=== PATIENT | male | born 1960 | race Caucasian/White ===

== ENCOUNTER 2017-03-07 17:44 | Inpatient (IN) | payer OTHER, MEDICAID ==
[2017-03-07] MEDS ORDERED: NS 1000 ML 1,000 ML ONE (17:58)
[2017-03-07] MEDS ORDERED: NS 1000 ML 1,000 ML IV ONE ×2 (18:09→18:14)
--- NOTE | 2017-03-07 18:11 | DR.CP ---
HPI - Time Seen Time seen: 18:06 - Complaint Chief Complaint Doctor Comments: Patient complaining of xiphoid chest pain and right side pain for the past nine hours with onset of right side pain for past week. Patient states his chest pain started about 8am today and has been constant. He had an aspirin 81mg today and his gave him most of his medicines but did not give him his Lasix becausea his blood pressure was low. Patient states he sees a reel stripper in [place] but he does not have a local doctor. States he has a strong family history of heart disease with his parents and his siblings having heart disease. States the onset of his chest pain was at rest. Chief Complaint:: PT. C/O RIGHT SIDED PAIN FOR A WHILE. PT. SAYS THIS MORNING WHEN HE WOKE UP HE HAD PRESSURE/TIGHTNESS TO HIS CHEST WHICH HAS BEEN CONSTANT SINCE ONSET WELL SHORTNESS OF BREATH. - Reviewed Nurses Notes Review: Yes - Source History Provided: Patient, Family Member - Mode of Arrival Mode of Arrival: Wheelchair - Timing Onset of Chief Complaint: 03/07/17 Came on: Gradually Pain: Present Now - Duration Duration: Constant How lon Duration: Hours - Location Location of Chest Pain: Chest Chest Pain Radiation Location: Right Shoulder - Context Onset: At rest Cardiac Risk Factors: Family History, HTN PE Risk Factors: None History of: Similar pain in the past Prehospital Care: ASA - Quality Quality: Pressure like, Heavy, Crushing - Severity Severity: Moderate - Modifying Factors Worsens: Nothing Impoves: Nothing - Associated Signs and Symptoms Associated Signs and Symptoms: None PMH - PMH Past Medical History: Yes Past Medical History: CHF, Diabetes, GERD, Hypertension Past Medical History Comment: A-FIB, TIA Past Surgical History: Yes Surgical History: Ortho Surgery Past Surgical History Comment: RIGHT LEG - Family History History of Family Medical Conditions: Yes Family Medical History: Diabetes Mellitus, Coronary Artery Disease, Hypertension - Social History Does patient currently use any type of tobacco product: No Have you used tobacco products in the last 12 months: No Type of Tobacco Use: None Does any household member use tobacco: No Alcohol Use: None Do you use any recreational Drugs:: No Lives With: Spouse Lives Where: Home - infectious screening In the last 2 months have you had wt loss of >10#?: NO Have you had fever, night sweats or hemotysis?: No Have you traveled outside the country in the last 6 months?: No Isolation: Standard ROS - Review of Systems Constitutional: No Symptoms Reported. negative: See HPI, Chills, Diaphoresis, Fever, Malaise, Weakness, Irritable, Fatigue, Loss of Appetite, Other Eyes: No Symptoms Reported ENTM: No Symptoms Reported. negative: See HPI, Ear Pain, Ear Discharge, Pulling on Ears, Hearing Loss, Nose Pain, Nose Discharge, Epistaxis, Nose Congestion, Mouth Pain, Mouth Swelling, Loose Teeth, Drooling, Throat Pain, Throat Swelling, Ear Foreign Body Respiratoy: No Symptoms Reported. negative: See HPI, Productive Cough, Non- Productive Cough, Moist Cough, Dry Cough, Hacking Cough, Barking Cough, Brassy Cough, Orthopnea, Short of Breath, Stridor, Wheezing, Hemoptysis, Other Cardiovascular: No Symptoms Reported, Chest Pain. negative: See HPI, Edema, Palpitations, Syncope, Cyanosis, Skin Mottling, Other Gastrointestinal/Abdominal: No Symptoms Reported. negative: See HPI, Abdominal Pain, Constipation, Diarrhea, Nausea, Vomiting, Food Intolerance, Other Genitourinary: No Symptoms Reported. negative: See HPI, Discharge, Dysuria, Frequency, Hematuria, Pain, Bleeding, Other Neurological: No Symptoms Reported. negative: See HPI, Anxiety, Depressed, Emotional Problems, Headache, Numbness, Paresthesia, Pre-existing Deficit, Seizure, Tingling, Tremors, Weakness, Dizziness, Problems Walking, Speech Problem, Other Musculoskeletal: No Symptoms Reported, Right, Chest wall Integumentary: No Symptoms Reported Hematologic/Lymphatic: No Symptoms Reported. negative: See HPI, Anemia, Blood Clots, Easy Bleeding, Easy Bruising, Swollen Glands, Lymphadenopathy, Other Endocrine: No Symptoms Reported Psychiatric: No Symptoms Reported PE - Vitals Vitals: Temperature 97.8 F Pulse Rate [Apical] 55 Pulse Rate 66 Respiratory Rate 21 Blood Pressure [Right Arm] 101/58 Blood Pressure 87/58 O2 Sat by Pulse Oximetry 92 - General Limitations: No Limitations General Appearance: Alert, In Distress (moderate) - Head Head Exam: Normal Inspection, Atraumatic, Normocephalic - Eyes Eye exam: Normal Appearance, PERRL, EOMI. negative: Scleral Icterus, Conjunctival Injection, Nystagmus, Miosis, Mydrasis, Periorbital Swelling, Periorbital Tenderness, Other - ENT ENT Exam: Normal Exam, Normal Oropharynx, Normal External Ear Exam, Mucous Membranes Moist, TM's Normal Bilaterally - Chest Chest Inspection: Normal Inspection, Symmetric Chest Wall Rise - Respiratory Respiratory Exam: Normal Lung Sounds Bilat Respiratory Exam: Bilateral Clear to Auscultation - Cardiovascular Cardiovascular Exam: Regular Rate, Normal Rhythm, Normal Heart Sounds, Systolic Murmur Pulse: Normal Edema: Normal - Abdominal Exam Abdominal Exam: Normal Inspection, Normal Bowel Sounds, Soft. negative: Distention, Tenderness, Guarding, Rebound, Rigidity, Dimnished Bowel Sounds, Hyperactive Bowel Sounds, Hypoactive Bowel Sounds, Organomegaly, Trauma, Incision, Ascites, Mass, Bruit, Pulsatile Mass, Hernia, Other Abdominal Tenderness: negative: RUQ, RLQ, LUQ, LLQ, Epigastrium, Suprapubic, Diffuse, Mild, Moderate, Severe, Other - Extremities Extremities Exam: Normal Inspection, Full ROM, Normal Capillary Refill. negative: Tenderness, Edema, Joint Swelling, Calf Tenderness, Other - Back Back Exam: Normal Inspection, Full ROM. negative: Tenderness, (R) CVA Tenderness, (L) CVA Tenderness, Muscle Spasm, Paraspinal Tenderness, Vertebral Tenderness, Rashes, (R) Sciatic Notch Tenderness, (L) Sciatic Notch Tendern, (R ) Straight Leg Raise, (L) Straight Leg Raise, Other - Neurologic Neurological Exam: Alert, Oriented X3, CN II-XII Intact, Normal Gait, Reflexes Normal - Psychiatric Psychiatric Exam: Normal Affect, Normal Mood. negative: Depressed, Agitated, Anxious, Flat Affect, Manic, Homicidal Ideation, Suicidal Ideation, Other - Skin Skin Exam: Warm, Dry, Intact, Normal Color ROR - Labs Reviewed Laboratory Results Reviewed?: Yes (all labs and x-ray results reviewed and discussed with patient and spouse) Result Diagrams: 03/07/17 18:02 03/07/17 18:03 Laboratory: WBC 21.6 X10^3/uL (3.6-10.0) H* 03/07/17 18:02 RBC 5.08 X10^6/uL (4.7-6.0) 03/07/17 18:02 Hgb 14.2 g/dL (13.5-18.0) 03/07/17 18:02 Hct 41.6 % (42.0-54.0) L 03/07/17 18:02 MCV 81.8 fL (80.0-100.0) 03/07/17 18:02 MCH 28.0 pg (27.0-34.0) 03/07/17 18:02 MCHC 34.2 g/dL (33.0-35.0) 03/07/17 18:02 RDW 15.2 % (11.6-16.5) 03/07/17 18:02 Plt Count 140 X10^3/uL (150.0-450.0) L 03/07/17 18:02 Plt Count Comment Adequate (ADEQUATE) 03/07/17 18:02 MPV 9.9 fL (7.4-11.0) 03/07/17 18:02 Neut % 86.0 % (42.0-75.0) H 03/07/17 18:02 Lymph % 7.5 % (21.0-51.0) L 03/07/17 18:02 Lamar % 6.1 % (0.0-13.0) 03/07/17 18:02 Eos % 0.1 % (0.9-2.9) L 03/07/17 18:02 Baso % 0.3 % (0.2-1.0) 03/07/17 18:02 Neut # 18.6 x10^3/uL (2.2-4.8) H 03/07/17 18:02 Lymph # 1.6 X10^3/uL (1.3-2.9) 03/07/17 18:02 Lamar # 1.3 x10^3/uL (0.3-0.8) H 03/07/17 18:02 Eos # 0.0 x10^3/uL (0.0-0.2) 03/07/17 18:02 Baso # 0.1 X10^3/uL (0.0-0.1) 03/07/17 18:02 Absolute Nucleated RBC 0.1 /100WBC 03/07/17 18:02 Total Counted 100 03/07/17 18:02 Neutrophils % (Manual) 77 % (39-76) H 03/07/17 18:02 Band Neutrophils % 11 % (0-10) H 03/07/17 18:02 Lymphocytes % (Manual) 8 % (13-43) L 03/07/17 18:02 Monocytes % (Manual) 4 % (4-9) 03/07/17 18:02 Plt Morphology Comment Normal (NORMAL) 03/07/17 18:02 RBC Morphology Normal (NORMAL) 03/07/17 18:02 INR Target Range - 03/07/17 18:03 INR 2.01 (0.8-1.3) H 03/07/17 18:03 PTT 69.8 SECONDS (22.9-36.5) H 03/07/17 18:03 PTT Comment - 03/07/17 18:03 D-Dimer 194 ng/mL (0-400) 03/07/17 18:03 Sodium 142 mmol/L (136-145) 03/07/17 18:03 Corrected Sodium 143 mmol/L (136-145) 03/07/17 18:03 Potassium 4.5 mmol/L (3.5-5.1) 03/07/17 18:03 Chloride 106 mmol/L (98-107) 03/07/17 18:03 Carbon Dioxide 30.4 mmol/L (21-32) 03/07/17 18:03 BUN 19 mg/dL (7-18) H 03/07/17 18:03 Creatinine 1.74 mg/dL (0.70-1.30) H 03/07/17 18:03 Est GFR (MDRD) Af Amer 52 (>60) L 03/07/17 18:03 Est GFR (MDRD) Non-Af 43 (>60) L 03/07/17 18:03 Glucose 122 mg/dL (65-99) H 03/07/17 18:03 Calcium 8.5 mg/dL (8.5-10.1) 03/07/17 18:03 Corrected Calcium 9.2 mg/dL (8.5-10.1) 03/07/17 18:03 Magnesium 1.2 mg/dL (1.7-2.9) L 03/07/17 18:03 Total Bilirubin 1.20 mg/dL (0.2-1.0) H 03/07/17 18:03 AST 83 Units/L (15-37) H 03/07/17 18:03 ALT 107 Units/L (12-78) H 03/07/17 18:03 Alkaline Phosphatase 284 Units/L (46-116) H 03/07/17 18:03 Creatine Kinase 40 Units/L (39-308) 03/07/17 18:03 CK-MB (CK-2) < 1.0 ng/mL (0-4.0) 03/07/17 18:03 CK/CKMB % Calc 2.5 % (<4) 03/07/17 18:03 Troponin I < 0.02 ng/mL (0-1.5) 03/07/17 18:03 B-Natriuretic Peptide 141 pg/mL (0-79) H 03/07/17 18:03 Total Protein 7.1 g/dL (6.4-8.2) 03/07/17 18:03 Albumin 3.1 g/dL (3.4-5.0) L 03/07/17 18:03 Globulin 4.0 g/dL (2.5-4.5) 03/07/17 18:03 Albumin/Globulin Ratio 0.8 Ratio (1.1-2.1) L 03/07/17 18:03 Specimen Type Clean catch urine 03/07/17 18:50 Urine Color Yellow (YELLOW) 03/07/17 18:50 Urine Appearance Hazy (CLEAR) 03/07/17 18:50 Urine pH 6.0 (5.0 - 8.0) 03/07/17 18:50 Ur Specific Pioneer 1.005 (1.000-1.030) 03/07/17 18:50 Urine Protein 2+ (NEGATIVE) 03/07/17 18:50 Urine Glucose (UA) Negative (NEGATIVE) 03/07/17 18:50 Urine Ketones Negative (NEGATIVE) 03/07/17 18:50 Urine Occult Blood 2+ (NEGATIVE) 03/07/17 18:50 Urine Nitrite Negative (NEGATIVE) 03/07/17 18:50 Urine Bilirubin Negative (NEGATIVE) 03/07/17 18:50 Urine Urobilinogen Normal (NORMAL) 03/07/17 18:50 Ur Leukocyte Esterase 3+ (NEGATIVE) 03/07/17 18:50 Urine RBC 0 - 3 /HPF (NEGATIVE) 03/07/17 18:50 Urine WBC Tntc with clumps /HPF (NEGATIVE) 03/07/17 18:50 Ur Squamous Epith Cells Few /HPF (NEGATIVE) 03/07/17 18:50 Amorphous Sediment 2+ /HPF (NEGATIVE) 03/07/17 18:50 Urine Bacteria 2+ /HPF (NEGATIVE) 03/07/17 18:50 Urine Mucus Moderate /HPF (NEGATIVE) 03/07/17 18:50 Ur Culture Indicated? Yes/culture set up 03/07/17 18:50 Digoxin < 0.30 ng/mL (0.9-2) L 03/07/17 18:03 - XRAY XRAY Interpreted by: Radiologist (CXR: Findgs concerning for left lower pneumonia) - EKG Rate: 67 [place]: Normal Rhythm: NSR ST: Nonsp - Diagnosis Discharge Problem: Chest pain, rule out acute myocardial infarction, Urinary tract infection, Chronic kidney disease Left lower lobe pneumonia Qualifiers: Pneumonia type: due to unspecified organism Qualified Code(s): J18.1 - Lobar pneumonia, unspecified organism Congestive heart failure Qualifiers: Congestive heart failure type: unspecified congestive heart failure type - Discharge Plan Disposition: ADMITTED INPATIENT Condition: Stable Prescriptions: Levofloxacin in D5w [LEVAQUIN IV PREMIX 500 MG *] 500 mg IV Q24H #1 bag - Follow ups/Referrals Follow ups/Referrals: ORQUIDEA PEREZ [Primary Care Provider] - 3 days - Instructions
[2017-03-07 18:37] LABS: BASOPHILS # (AUTO) 0.1 X10^3/uL (0.0-0.1); BASOPHILS % (AUTO) 0.3 % (0.2-1.0); EOSINOPHILS % (AUTO) 0.1 % (0.9-2.9); HEMATOCRIT 41.6 % (42.0-54.0); HEMOGLOBIN 14.2 g/dL (13.5-18.0); LYMPHOCYTES # (AUTO) 1.6 X10^3/uL (1.3-2.9); LYMPHOCYTES % (AUTO) 7.5 % (21.0-51.0); MEAN CORPUSCULAR HGB CONC 34.2 g/dL (33.0-35.0); MEAN CORPUSCULAR VOLUME 81.8 fL (80.0-100.0); MEAN PLATELET VOLUME 9.9 fL (7.4-11.0); MONOCYTES # (AUTO) 1.3 x10^3/uL (0.3-0.8); MONOCYTES % (AUTO) 6.1 % (0.0-13.0); NEUTROPHILS # (AUTO) 18.6 x10^3/uL (2.2-4.8); PLATELET COUNT 140 X10^3/uL (150.0-450.0); RED BLOOD COUNT 5.08 X10^6/uL (4.7-6.0); RED CELL DISTRIBUTION WIDTH 15.2 % (11.6-16.5)
[2017-03-07 18:44] LABS: WHITE BLOOD COUNT 21.6 X10^3/uL (3.6-10.0)
[2017-03-07 18:45] LABS: BAND NEUTROPHILS % 11 % (0-10); PLATELET MORPHOLOGY COMMENT NORMAL (NORMAL)
[2017-03-07 18:49] LABS: BLOOD UREA NITROGEN 19 mg/dL (7-18); CALCIUM 8.5 mg/dL (8.5-10.1); CARBON DIOXIDE 30.4 mmol/L (21-32); CHLORIDE 106 mmol/L (98-107); COR NA(FOR HYPERGLY) 143 mmol/L (136-145); CREATININE 1.74 mg/dL (0.70-1.30); GLUCOSE 122 mg/dL (65-99); SODIUM 142 mmol/L (136-145); TROPONIN I < 0.02 ng/mL (0-1.5); eGFR BLACK RACES 52 (>60); eGFR NON BLACK RACES 43 (>60)
[2017-03-07 18:52] LABS: ALANINE AMINOTRANSFERASE 107 Units/L (12-78); ALBUMIN 3.1 g/dL (3.4-5.0); ALKALINE PHOSPHATASE 284 Units/L (46-116); ASPARTATE AMINO TRANSFERASE 83 Units/L (15-37); COR CA(FOR HYPOALB) 9.2 mg/dL (8.5-10.1); CREATINE KINASE 40 Units/L (39-308); CREATINE KINASE MB < 1.0 ng/mL (0-4.0); MAGNESIUM 1.2 mg/dL (1.7-2.9); TOTAL PROTEIN 7.1 g/dL (6.4-8.2)
[2017-03-07 18:58] LABS: CKMB % 2.5 % (<4)
[2017-03-07 19:00] LABS: D DIMER 194 ng/mL (0-400)
[2017-03-07 19:05] LABS: BILIRUBIN,URINE NEGATIVE (NEGATIVE); BLOOD/HEMOGLOBIN,URINE 2+ (NEGATIVE); GLUCOSE, URINE NEGATIVE (NEGATIVE); KETONES,URINE NEGATIVE (NEGATIVE); LEUKOCYTE ESTERASE ,URINE 3+ (NEGATIVE); NITRITES,URINE NEGATIVE (NEGATIVE); PROTEIN,URINE 2+ (NEGATIVE); UROBILINOGEN,URINE NORMAL (NORMAL)
[2017-03-07 19:16] LABS: B-TYPE NATRIURETIC PEPTIDE 141 pg/mL (0-79)
[2017-03-07 19:39] LABS: APPEARANCE,URINE HAZY (CLEAR); COLOR,URINE YELLOW (YELLOW); RBC,URINE 0 - 3 /HPF (NEGATIVE); SQUAMOUS EPITHELIAL CELL,UR FEW /HPF (NEGATIVE)
[2017-03-07 19:40] LABS: AMORPHOUS SEDIMENT,UR 2+ /HPF (NEGATIVE); BACTERIA,URINE 2+ /HPF (NEGATIVE); MUCUS,URINE MODERATE /HPF (NEGATIVE)
[2017-03-07] MEDS ORDERED: ROCEPHIN VIAL 1 GM 1 GM in NS 50 ML IV + SPIKE MINIBAG* 50 ML IV ONE (19:42)
[2017-03-07] MEDS ORDERED: ROCEPHIN 1 GM IV PREMIX * OUT OF STOCK 50 ML IV ONE (19:43)
--- NOTE | 2017-03-07 20:16 | RAD ---
HISTORY: 57-year-old male with chest pain. Study: Single frontal view of the chest. Comparison: None. Findings: Costophrenic angles are excluded. The trachea is midline. The cardiac silhouette is enlarged. Left basilar airspace opacities withou t pneumothorax or large effusion. The bony thorax is unremarkable. IMPRESSION: 1. Findings concerning for left lower pneumonia, correlate clinically. Reported By:
[2017-03-07] MEDS ORDERED: TUSSIONEX PENNKINETIC SUSP PO PRN (21:42)
[2017-03-07] MEDS ORDERED: NS 1/2 1000 ML IV 1,000 ML IV ONE (23:05)
[2017-03-07] MEDS: NS 1/2 1000 ML IV 1,000 ML IV SCH (23:12)
[2017-03-08 00:18] VITALS: BMI 30.2
[2017-03-08] MEDS: DUONEB 0.5 MG/3 MG NEB SCH ×6 (01:02→21:20)
[2017-03-08 03:48] LABS: BASOPHILS # (AUTO) 0.1 X10^3/uL (0.0-0.1); BASOPHILS % (AUTO) 0.4 % (0.2-1.0); EOSINOPHILS % (AUTO) 0.2 % (0.9-2.9); HEMATOCRIT 35.6 % (42.0-54.0); HEMOGLOBIN 12.1 g/dL (13.5-18.0); LYMPHOCYTES # (AUTO) 2.2 X10^3/uL (1.3-2.9); LYMPHOCYTES % (AUTO) 11.1 % (21.0-51.0); MEAN CORPUSCULAR HEMOGLOBIN 27.7 pg (27.0-34.0); MEAN CORPUSCULAR VOLUME 81.4 fL (80.0-100.0); MEAN PLATELET VOLUME 9.9 fL (7.4-11.0); MONOCYTES # (AUTO) 1.2 x10^3/uL (0.3-0.8); MONOCYTES % (AUTO) 6.1 % (0.0-13.0); NEUTROPHILS % (AUTO) 82.2 % (42.0-75.0); PLATELET COUNT 116 X10^3/uL (150.0-450.0); RED BLOOD COUNT 4.37 X10^6/uL (4.7-6.0); RED CELL DISTRIBUTION WIDTH 15.3 % (11.6-16.5); WHITE BLOOD COUNT 19.4 X10^3/uL (3.6-10.0)
[2017-03-08 04:01] LABS: ALANINE AMINOTRANSFERASE 81 Units/L (12-78); ALBUMIN 2.5 g/dL (3.4-5.0); ALKALINE PHOSPHATASE 209 Units/L (46-116); ASPARTATE AMINO TRANSFERASE 45 Units/L (15-37); BLOOD UREA NITROGEN 17 mg/dL (7-18); CALCIUM 7.9 mg/dL (8.5-10.1); CARBON DIOXIDE 30.3 mmol/L (21-32); CHLORIDE 107 mmol/L (98-107); CHOL/HDL RATIO 1.5 (0.0-5.0); CHOLESTEROL 73 mg/dL (0-200); COR CA(FOR HYPOALB) 9.1 mg/dL (8.5-10.1); COR NA(FOR HYPERGLY) 141 mmol/L (136-145); CREATINE KINASE 33 Units/L (39-308); CREATINE KINASE MB < 1.0 ng/mL (0-4.0); CREATININE 1.39 mg/dL (0.70-1.30); GLUCOSE 149 mg/dL (65-99); HDL CHOLESTEROL 49 mg/dL (40-60); SODIUM 140 mmol/L (136-145); TOTAL PROTEIN 6.1 g/dL (6.4-8.2); TRIGLYCERIDES 67 mg/dL (0-150); TROPONIN I < 0.02 ng/mL (0-1.5); eGFR BLACK RACES > 60 (>60); eGFR NON BLACK RACES 56 (>60)
[2017-03-08] MEDS ORDERED: ROCEPHIN VIAL 1 GM 1 GM in NS 50 ML IV + SPIKE MINIBAG* 50 ML IV SCH (09:00)
[2017-03-08] MEDS: ROBITUSSIN DM PO SCH ×4 (09:03→20:41)
[2017-03-08] MEDS ORDERED: PATIENT'S HOME MEDICATION (Albuterol Sulfate 1 PUFF) INH PRN (10:08)
[2017-03-08] MEDS ORDERED: PATIENT'S HOME MEDICATION (Budesonide-Formoterol 1 PUFF) INH SCH (10:15)
[2017-03-08] MEDS ORDERED: PATIENT'S HOME MEDICATION (Rivaroxaban [Xarelto] 1 TAB) PO SCH (10:15)
[2017-03-08] MEDS ORDERED: NS 1/2 1000 ML IV 1,000 ML IV ONE (10:20)
[2017-03-08] MEDS: GENTAMICIN TOPICAL CRM TOP SCH ×2 (10:25→20:51)
[2017-03-08] MEDS: NS 1/2 1000 ML IV 1,000 ML IV SCH (10:25)
[2017-03-08] MEDS: FORTAZ or TAZICEF INJ 1 GM in NS 50 ML IV + SPIKE MINIBAG* 50 ML IV SCH ×3 (10:25→22:23)
[2017-03-08] MEDS: LEVAQUIN PREMIX IV 750 MG 750 MG/150 ML BAG IV SCH (10:30)
[2017-03-08 10:57] LABS: CREATINE KINASE 28 Units/L (39-308); CREATINE KINASE MB < 1.0 ng/mL (0-4.0); TROPONIN I < 0.02 ng/mL (0-1.5)
[2017-03-08 11:11] LABS: CKMB % 3.6 % (<4)
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
[2017-03-08] MEDS ORDERED: VENTOLIN or PROAIR HFA IN PRN (12:32)
[2017-03-08] MEDS ORDERED: PROVENTIL NEB TX 0.083% 2.5MG/ 3ML NEB PRN (12:53)
[2017-03-08] MEDS: K-DUR TAB 20 MEQ PO SCH (13:28)
[2017-03-08] MEDS: DIOVAN TAB 160 MG PO SCH (13:28)
[2017-03-08] MEDS: ASPIRIN EC 81 MG PO SCH (13:28)
[2017-03-08] MEDS: COREG TAB 12.5 MG PO SCH ×2 (13:29→20:38)
[2017-03-08] MEDS: PriLOSEC PO SCH (13:29)
[2017-03-08] MEDS: NORVASC TAB 10 MG PO SCH (13:29)
[2017-03-08] MEDS: BUSPAR PO SCH ×2 (13:29→20:41)
[2017-03-08] MEDS: NEURONTIN CAP 100 MG PO SCH ×2 (13:29→20:40)
[2017-03-08] MEDS: MAGNESIUM SULFATE 1 GM/100 mL PREMIX 1 GM/100 ML BAG IV SCH ×2 (13:30→14:54)
[2017-03-08] MEDS: DESVENLAFAXINE SUCCINATE PO SCH (13:37)
[2017-03-08] MEDS: MORPHINE SULFATE INJ 2 MG IVP PRN ×2 (14:56→20:06)
--- NOTE | 2017-03-08 17:14 | PCM.PROG ---
Progress Note - Progress Note for Day of Date: 03/08/17 - Subjective Subjective: WAS ADMITTED LAST NIGHT FOR CHEST PAIN, LLL PNEUMONIA, AND SHORTNESS OF BREATH. HE WAS SITTING IN HIGH FOWLERS POSITION ON MORNING ROUNDS. AT BEDSIDE. HE IS WITH COMPLAINTS OF RIGHT SIDE PAIN AND COUGH THIS MORNING. LUNGS ARE NOTED WITH WHEEZING BILATERALLY. PATIENT ALSO COMPLAINS OF PRESSURE ULCER TO RIGHT HEEL. SPOUSE STATES THAT WOUND HAS BEEN THERE FOR A FEW WEEKS. WOUND IS APPROXIMATELY 2CM AND IS SCABBED OVER. VITALS THIS AM ARE 97.9, 69, 24, 96%, 131/49. CBC WNL EXCEPT WBC 19.4, HGB 12.1, HCT 35.6. CMP WNL EXCEPT CREATININE 1.39, GLUCOSE 149, CALCIUM 7.9, AST 45, ALT 81, ALKALINE PHOSPHATASE 209, CREATINE KINASE 33, TOTAL PROTEIN 6.1, ALBUMIN 2.5. WE WILL DISCONTINUE ROCEPHIN AND START PATIENT ON FORTAZ AND LEVAQUIN. WE WILL START GENTAMICIN FOR WOUND ON HEEL. WE WILL RECHECK LABS AND FOLLOW UP WITH PATIENT IN AM. - Past Medical Family Social History Past Med/Fam/Surg Hx: No changes since H&P Allergies: Allergies clindamycin Allergy (Verified 03/07/17 17:50) methylprednisolone [From Solu-Medrol] Allergy (Verified 03/07/17 17:50) pregabalin [From Lyrica] Allergy (Verified 03/07/17 17:50) - Review of Systems ROS: No change since H&P - Vital Signs and I&O's Vital Signs: Temperature 98 F Pulse Rate [Apical] 59 Pulse Rate 60 Respiratory Rate 15 Blood Pressure [Right Arm] 111/38 O2 Sat by Pulse Oximetry 95 Intake and Output: Intake & Output 03/06/17 03/07/17 03/08/17 03/09/17 11:59 11:59 11:59 11:59 Intake Total 850 925 Output Total 600 1610 Balance 250 -685 - Physical Exam Oriented: Normal Eyes: Normal Ear: Normal Nose: Normal Throat: Normal Cardiovascular: Normal. negative: Tachycardia, Bradycardia, Irregular, S3, S4, Systolic, Diastolic, Murmur, Edema, Other : Dysuria, Hematuria. negative: Normal, Frequency, Discharge, Testicular Pain , Bleeding, , Other Auscultation: Bowel Sounds: Normal. negative: Bruit, Absent, Increased, Decreased, High Pitched, Other Palpation: Normal Tenderness: Normal. negative: Diffuse, RUQ, RLQ, LUQ, LLQ, Epigastric, Periumbilical, Suprapubic, Mild, Moderate, Severe, Rebound, Guarding, Rigidity, Other Skin: Wound. negative: Decreased Turgur, Rash, Papular, Macular, Maculopapular , Vesicular, Pustular, Petechial, Red, Tender, Hot, Diaphoresis, Bruising, Ecchymosis, Other Musculoskeletal: Normal Psychiatric: Normal Mood Description: Calm Affect: Normal Speech Pattern: Clear - Laboratory and Diagnostics Result Diagrams: 03/08/17 03:20 03/08/17 03:20 Labs: 03/08/17 13:15 Sputum - Expectorated Sputum - Final Laboratory WBC 19.4 X10^3/uL (3.6-10.0) H 03/08/17 03:20 RBC 4.37 X10^6/uL (4.7-6.0) L 03/08/17 03:20 Hgb 12.1 g/dL (13.5-18.0) L 03/08/17 03:20 Hct 35.6 % (42.0-54.0) L 03/08/17 03:20 MCV 81.4 fL (80.0-100.0) 03/08/17 03:20 MCH 27.7 pg (27.0-34.0) 03/08/17 03:20 MCHC 34.0 g/dL (33.0-35.0) 03/08/17 03:20 RDW 15.3 % (11.6-16.5) 03/08/17 03:20 Plt Count 116 X10^3/uL (150.0-450.0) L 03/08/17 03:20 Plt Count Comment Adequate (ADEQUATE) 03/07/17 18:02 MPV 9.9 fL (7.4-11.0) 03/08/17 03:20 Neut % 82.2 % (42.0-75.0) H 03/08/17 03:20 Lymph % 11.1 % (21.0-51.0) L 03/08/17 03:20 [place] % 6.1 % (0.0-13.0) 03/08/17 03:20 Eos % 0.2 % (0.9-2.9) L 03/08/17 03:20 Baso % 0.4 % (0.2-1.0) 03/08/17 03:20 Neut # 16.0 x10^3/uL (2.2-4.8) H 03/08/17 03:20 Lymph # 2.2 X10^3/uL (1.3-2.9) 03/08/17 03:20 [place] # 1.2 x10^3/uL (0.3-0.8) H 03/08/17 03:20 Eos # 0.0 x10^3/uL (0.0-0.2) 03/08/17 03:20 Baso # 0.1 X10^3/uL (0.0-0.1) 03/08/17 03:20 Absolute Nucleated RBC 0.0 /100WBC 03/08/17 03:20 Total Counted 100 03/07/17 18:02 Neutrophils % (Manual) 77 % (39-76) H 03/07/17 18:02 Band Neutrophils % 11 % (0-10) H 03/07/17 18:02 Lymphocytes % (Manual) 8 % (13-43) L 03/07/17 18:02 Monocytes % (Manual) 4 % (4-9) 03/07/17 18:02 Plt Morphology Comment Normal (NORMAL) 03/07/17 18:02 RBC Morphology Normal (NORMAL) 03/07/17 18:02 INR Target Range - 03/07/17 18:03 INR 2.01 (0.8-1.3) H 03/07/17 18:03 PTT 69.8 SECONDS (22.9-36.5) H 03/07/17 18:03 PTT Comment - 03/07/17 18:03 D-Dimer 194 ng/mL (0-400) 03/07/17 18:03 Sodium 140 mmol/L (136-145) 03/08/17 03:20 Corrected Sodium 141 mmol/L (136-145) 03/08/17 03:20 Potassium 4.5 mmol/L (3.5-5.1) 03/08/17 03:20 Chloride 107 mmol/L (98-107) 03/08/17 03:20 Carbon Dioxide 30.3 mmol/L (21-32) 03/08/17 03:20 BUN 17 mg/dL (7-18) 03/08/17 03:20 Creatinine 1.39 mg/dL (0.70-1.30) H 03/08/17 03:20 Est GFR (MDRD) Af Amer > 60 (>60) 03/08/17 03:20 Est GFR (MDRD) Non-Af 56 (>60) L 03/08/17 03:20 Glucose 149 mg/dL (65-99) H 03/08/17 03:20 Lactic Acid 1.9 mmol/L (0.4-2.0) 03/08/17 03:20 Calcium 7.9 mg/dL (8.5-10.1) L 03/08/17 03:20 Corrected Calcium 9.1 mg/dL (8.5-10.1) 03/08/17 03:20 Magnesium 1.2 mg/dL (1.7-2.9) L 03/07/17 18:03 Total Bilirubin 0.70 mg/dL (0.2-1.0) 03/08/17 03:20 AST 45 Units/L (15-37) H 03/08/17 03:20 ALT 81 Units/L (12-78) H 03/08/17 03:20 Alkaline Phosphatase 209 Units/L (46-116) H 03/08/17 03:20 Creatine Kinase 28 Units/L (39-308) L 03/08/17 09:58 CK-MB (CK-2) < 1.0 ng/mL (0-4.0) 03/08/17 09:58 CK/CKMB % Calc 3.6 % (<4) 03/08/17 09:58 Troponin I < 0.02 ng/mL (0-1.5) 03/08/17 09:58 B-Natriuretic Peptide 141 pg/mL (0-79) H 03/07/17 18:03 Total Protein 6.1 g/dL (6.4-8.2) L 03/08/17 03:20 Albumin 2.5 g/dL (3.4-5.0) L 03/08/17 03:20 Globulin 3.6 g/dL (2.5-4.5) 03/08/17 03:20 Albumin/Globulin Ratio 0.7 Ratio (1.1-2.1) L 03/08/17 03:20 Triglycerides 67 mg/dL (0-150) 03/08/17 03:20 Cholesterol 73 mg/dL (0-200) 03/08/17 03:20 LDL Cholesterol, Calc 11 mg/dL (0-100) 03/08/17 03:20 HDL Cholesterol 49 mg/dL (40-60) 03/08/17 03:20 Cholesterol/HDL Ratio 1.5 (0.0-5.0) 03/08/17 03:20 Specimen Type Clean catch urine 03/07/17 18:50 Urine Color Yellow (YELLOW) 03/07/17 18:50 Urine Appearance Hazy (CLEAR) 03/07/17 18:50 Urine pH 6.0 (5.0 - 8.0) 03/07/17 18:50 Ur Specific [place] 1.005 (1.000-1.030) 03/07/17 18:50 Urine Protein 2+ (NEGATIVE) 03/07/17 18:50 Urine Glucose (UA) Negative (NEGATIVE) 03/07/17 18:50 Urine Ketones Negative (NEGATIVE) 03/07/17 18:50 Urine Occult Blood 2+ (NEGATIVE) 03/07/17 18:50 Urine Nitrite Negative (NEGATIVE) 03/07/17 18:50 Urine Bilirubin Negative (NEGATIVE) 03/07/17 18:50 Urine Urobilinogen Normal (NORMAL) 03/07/17 18:50 Ur Leukocyte Esterase 3+ (NEGATIVE) 03/07/17 18:50 Urine RBC 0 - 3 /HPF (NEGATIVE) 03/07/17 18:50 Urine WBC Tntc with clumps /HPF (NEGATIVE) 03/07/17 18:50 Ur Squamous Epith Cells Few /HPF (NEGATIVE) 03/07/17 18:50 Amorphous Sediment 2+ /HPF (NEGATIVE) 03/07/17 18:50 Urine Bacteria 2+ /HPF (NEGATIVE) 03/07/17 18:50 Urine Mucus Moderate /HPF (NEGATIVE) 03/07/17 18:50 Ur Culture Indicated? Yes/culture set up 03/07/17 18:50 Digoxin < 0.30 ng/mL (0.9-2) L 03/07/17 18:03 - Plan (1) Chest pain, rule out acute myocardial infarction Status: Acute Plan: CARDIAC PROFILE, EKG, CHEST XRAY, MONITOR LABS (2) Left lower lobe pneumonia Status: Acute Qualifiers: Pneumonia type: due to unspecified organism Aspiration pneumonia type: A Qualified Code(s): J18.1 - Lobar pneumonia, unspecified organism Plan: CHEST XRAY, LEVAQUIN, FORTAZ, MONITOR LABS (3) Urinary tract infection Status: Acute Qualifiers: Urinary tract infection type: acute cystitis Hematuria presence: with hematuria Indwelling urinary catheter type: I Encounter type: E Qualified Code(s): N30.01 - Acute cystitis with hematuria Plan: LEVAQUIN, FORTAZ, MONITOR LABS
[2017-03-08] MEDS: XARELTO PO SCH (20:41)
[2017-03-08] MEDS: ZOCOR TAB 20 MG PO SCH (20:50)
[2017-03-08] MEDS ORDERED: SYMBICORT INH 160/4.5 mcg IN SCH (21:00)
[2017-03-08] MEDS: PULMICORT NEB TX 0.5 MG NEB SCH (21:20)
[2017-03-08] MEDS: M.S. CONTIN 15 MG (EXTENDED RELEASE) PO PRN (22:27)
[2017-03-09] MEDS: DUONEB 0.5 MG/3 MG NEB SCH ×6 (00:42→20:13)
[2017-03-09] MEDS: FORTAZ or TAZICEF INJ 1 GM in NS 50 ML IV + SPIKE MINIBAG* 50 ML IV SCH ×3 (05:18→21:22)
[2017-03-09 06:18] LABS: BASOPHILS % (AUTO) 0.4 % (0.2-1.0); EOSINOPHILS # (AUTO) 0.1 x10^3/uL (0.0-0.2); EOSINOPHILS % (AUTO) 1.4 % (0.9-2.9); HEMATOCRIT 33.6 % (42.0-54.0); HEMOGLOBIN 11.7 g/dL (13.5-18.0); LYMPHOCYTES # (AUTO) 1.8 X10^3/uL (1.3-2.9); LYMPHOCYTES % (AUTO) 18.6 % (21.0-51.0); MEAN CORPUSCULAR HEMOGLOBIN 28.1 pg (27.0-34.0); MEAN CORPUSCULAR HGB CONC 34.8 g/dL (33.0-35.0); MEAN CORPUSCULAR VOLUME 80.8 fL (80.0-100.0); MEAN PLATELET VOLUME 10.2 fL (7.4-11.0); MONOCYTES # (AUTO) 0.5 x10^3/uL (0.3-0.8); MONOCYTES % (AUTO) 5.2 % (0.0-13.0); NEUTROPHILS # (AUTO) 7.2 x10^3/uL (2.2-4.8); NEUTROPHILS % (AUTO) 74.4 % (42.0-75.0); PLATELET COUNT 112 X10^3/uL (150.0-450.0); RED BLOOD COUNT 4.16 X10^6/uL (4.7-6.0); RED CELL DISTRIBUTION WIDTH 15.3 % (11.6-16.5); WHITE BLOOD COUNT 9.7 X10^3/uL (3.6-10.0)
[2017-03-09 06:25] LABS: ALANINE AMINOTRANSFERASE 56 Units/L (12-78); ALBUMIN 2.4 g/dL (3.4-5.0); ALKALINE PHOSPHATASE 169 Units/L (46-116); ASPARTATE AMINO TRANSFERASE 19 Units/L (15-37); BLOOD UREA NITROGEN 15 mg/dL (7-18); CALCIUM 7.9 mg/dL (8.5-10.1); CARBON DIOXIDE 28.6 mmol/L (21-32); CHLORIDE 105 mmol/L (98-107); COR CA(FOR HYPOALB) 9.2 mg/dL (8.5-10.1); CREATININE 1.21 mg/dL (0.70-1.30); GLUCOSE 101 mg/dL (65-99); SODIUM 140 mmol/L (136-145); TOTAL PROTEIN 6.4 g/dL (6.4-8.2); eGFR BLACK RACES > 60 (>60); eGFR NON BLACK RACES > 60 (>60)
[2017-03-09] MEDS: PULMICORT NEB TX 0.5 MG NEB SCH ×2 (08:48→20:13)
[2017-03-09] MEDS: GENTAMICIN TOPICAL CRM TOP SCH ×2 (09:00→21:30)
[2017-03-09] MEDS ORDERED: NS 1/2 1000 ML IV 1,000 ML IV ONE (09:02)
[2017-03-09] MEDS: DESVENLAFAXINE SUCCINATE PO SCH (09:52)
[2017-03-09] MEDS: K-DUR TAB 20 MEQ PO SCH (09:53)
[2017-03-09] MEDS: COREG TAB 12.5 MG PO SCH ×2 (09:53→21:22)
[2017-03-09] MEDS: NEURONTIN CAP 100 MG PO SCH ×2 (09:54→21:21)
[2017-03-09] MEDS: ROBITUSSIN DM PO SCH ×4 (09:54→21:22)
[2017-03-09] MEDS: ASPIRIN EC 81 MG PO SCH (09:54)
[2017-03-09] MEDS: NORVASC TAB 10 MG PO SCH (09:54)
[2017-03-09] MEDS: PriLOSEC PO SCH (09:54)
[2017-03-09] MEDS: BUSPAR PO SCH ×2 (09:54→21:22)
[2017-03-09] MEDS: DIOVAN TAB 160 MG PO SCH (09:54)
[2017-03-09] MEDS: LEVAQUIN PREMIX IV 750 MG 750 MG/150 ML BAG IV SCH (09:55)
[2017-03-09] MEDS: NS 1/2 1000 ML IV 1,000 ML IV SCH ×2 (09:59→16:58)
[2017-03-09] MEDS: ALBUMIN HUMAN 25%- 100ML 100 ML IV SCH (13:25)
--- NOTE | 2017-03-09 15:25 | PCM.PROG ---
Progress Note - Progress Note for Day of Date: 03/09/17 - Subjective Subjective: IS AWAKE IN BED ON MORNING ROUNDS. AT BEDSIDE. HE IS WITH COMPLAINTS OF SHORTNESS OF BREATH AND COUGH THIS MORNING. LUNGS ARE NOTED WITH WHEEZING BILATERALLY. VITALS THIS AM ARE 98.3,58,18,94,117/59. CBC WNL EXCEPT WBC IMPROVED FROM 19.4 TO 9.7, HGB 11.7, HCT 33.6. CMP WNL EXCEPT CALCIUM 7.9, ALKALINE PHOSPHATASE 169, ALBUMIN 2.4. WE WILL CONTINUE PATIENT ON FORTAZ AND LEVAQUIN. WE WILL CHECK AN ECHO AND START PATIENT ON CPAP AT HS. WE WILL RECHECK LABS AND XRAY AND FOLLOW UP WITH PATIENT IN AM. - Past Medical Family Social History Past Med/Fam/Surg Hx: No changes since H&P Allergies: Allergies clindamycin Allergy (Verified 03/07/17 17:50) methylprednisolone [From Solu-Medrol] Allergy (Verified 03/07/17 17:50) pregabalin [From Lyrica] Allergy (Verified 03/07/17 17:50) - Review of Systems ROS: No change since H&P - Vital Signs and I&O's Vital Signs: Temperature 98.3 F Pulse Rate [Apical] 56 Pulse Rate 69 Respiratory Rate 22 Blood Pressure [Right Arm] 114/63 O2 Sat by Pulse Oximetry 92 Intake and Output: Intake & Output 03/07/17 03/08/17 03/09/17 03/10/17 11:59 11:59 11:59 11:59 Intake Total 850 2629 Output Total 600 3710 Balance 250 -1081 - Physical Exam Oriented: Normal Eyes: Normal Ear: Normal Nose: Normal Throat: Normal Respiratory: Right, Left, Wheezes Cardiovascular: Normal. negative: Tachycardia, Bradycardia, Irregular, S3, S4, Systolic, Diastolic, Murmur, Edema, Other : Dysuria, Hematuria. negative: Normal, Frequency, Discharge, Testicular Pain , Bleeding, , Other Auscultation: Bowel Sounds: Normal. negative: Bruit, Absent, Increased, Decreased, High Pitched, Other Palpation: Normal Tenderness: Normal. negative: Diffuse, RUQ, RLQ, LUQ, LLQ, Epigastric, Periumbilical, Suprapubic, Mild, Moderate, Severe, Rebound, Guarding, Rigidity, Other Skin: Wound. negative: Decreased Turgur, Rash, Papular, Macular, Maculopapular , Vesicular, Pustular, Petechial, Red, Tender, Hot, Diaphoresis, Bruising, Ecchymosis, Other Musculoskeletal: Normal Psychiatric: Normal Mood Description: Calm Affect: Normal Speech Pattern: Clear, Appropriate - Laboratory and Diagnostics Result Diagrams: 03/09/17 05:10 03/09/17 05:10 Labs: 03/08/17 13:15 Sputum - Expectorated Sputum Sputum Culture - Preliminary 03/08/17 13:15 Sputum - Expectorated Sputum - Final Laboratory WBC 9.7 X10^3/uL (3.6-10.0) 03/09/17 05:10 RBC 4.16 X10^6/uL (4.7-6.0) L 03/09/17 05:10 Hgb 11.7 g/dL (13.5-18.0) L 03/09/17 05:10 Hct 33.6 % (42.0-54.0) L 03/09/17 05:10 MCV 80.8 fL (80.0-100.0) 03/09/17 05:10 MCH 28.1 pg (27.0-34.0) 03/09/17 05:10 MCHC 34.8 g/dL (33.0-35.0) 03/09/17 05:10 RDW 15.3 % (11.6-16.5) 03/09/17 05:10 Plt Count 112 X10^3/uL (150.0-450.0) L 03/09/17 05:10 Plt Count Comment Adequate (ADEQUATE) 03/07/17 18:02 MPV 10.2 fL (7.4-11.0) 03/09/17 05:10 Neut % 74.4 % (42.0-75.0) 03/09/17 05:10 Lymph % 18.6 % (21.0-51.0) L 03/09/17 05:10 [place] % 5.2 % (0.0-13.0) 03/09/17 05:10 Eos % 1.4 % (0.9-2.9) 03/09/17 05:10 Baso % 0.4 % (0.2-1.0) 03/09/17 05:10 Neut # 7.2 x10^3/uL (2.2-4.8) H 03/09/17 05:10 Lymph # 1.8 X10^3/uL (1.3-2.9) 03/09/17 05:10 [place] # 0.5 x10^3/uL (0.3-0.8) 03/09/17 05:10 Eos # 0.1 x10^3/uL (0.0-0.2) 03/09/17 05:10 Baso # 0.0 X10^3/uL (0.0-0.1) 03/09/17 05:10 Absolute Nucleated RBC 0.1 /100WBC 03/09/17 05:10 Total Counted 100 03/07/17 18:02 Neutrophils % (Manual) 77 % (39-76) H 03/07/17 18:02 Band Neutrophils % 11 % (0-10) H 03/07/17 18:02 Lymphocytes % (Manual) 8 % (13-43) L 03/07/17 18:02 Monocytes % (Manual) 4 % (4-9) 03/07/17 18:02 Plt Morphology Comment Normal (NORMAL) 03/07/17 18:02 RBC Morphology Normal (NORMAL) 03/07/17 18:02 INR Target Range - 03/09/17 05:10 INR 2.20 (0.8-1.3) H 03/09/17 05:10 PTT 57.7 SECONDS (22.9-36.5) H 03/09/17 05:10 PTT Comment - 03/09/17 05:10 D-Dimer 194 ng/mL (0-400) 03/07/17 18:03 Sodium 140 mmol/L (136-145) 03/09/17 05:10 Corrected Sodium TNP 03/09/17 05:10 Potassium 4.0 mmol/L (3.5-5.1) 03/09/17 05:10 Chloride 105 mmol/L (98-107) 03/09/17 05:10 Carbon Dioxide 28.6 mmol/L (21-32) 03/09/17 05:10 BUN 15 mg/dL (7-18) 03/09/17 05:10 Creatinine 1.21 mg/dL (0.70-1.30) 03/09/17 05:10 Est GFR (MDRD) Af Amer > 60 (>60) 03/09/17 05:10 Est GFR (MDRD) Non-Af > 60 (>60) 03/09/17 05:10 Glucose 101 mg/dL (65-99) H 03/09/17 05:10 Lactic Acid 1.9 mmol/L (0.4-2.0) 03/08/17 03:20 Calcium 7.9 mg/dL (8.5-10.1) L 03/09/17 05:10 Corrected Calcium 9.2 mg/dL (8.5-10.1) 03/09/17 05:10 Magnesium 1.8 mg/dL (1.7-2.9) 03/08/17 18:12 Total Bilirubin 0.50 mg/dL (0.2-1.0) 03/09/17 05:10 AST 19 Units/L (15-37) 03/09/17 05:10 ALT 56 Units/L (12-78) 03/09/17 05:10 Alkaline Phosphatase 169 Units/L (46-116) H 03/09/17 05:10 Creatine Kinase 28 Units/L (39-308) L 03/08/17 09:58 CK-MB (CK-2) < 1.0 ng/mL (0-4.0) 03/08/17 09:58 CK/CKMB % Calc 3.6 % (<4) 03/08/17 09:58 Troponin I < 0.02 ng/mL (0-1.5) 03/08/17 09:58 B-Natriuretic Peptide 141 pg/mL (0-79) H 03/07/17 18:03 Total Protein 6.4 g/dL (6.4-8.2) 03/09/17 05:10 Albumin 2.4 g/dL (3.4-5.0) L 03/09/17 05:10 Globulin 4.0 g/dL (2.5-4.5) 03/09/17 05:10 Albumin/Globulin Ratio 0.6 Ratio (1.1-2.1) L 03/09/17 05:10 Triglycerides 67 mg/dL (0-150) 03/08/17 03:20 Cholesterol 73 mg/dL (0-200) 03/08/17 03:20 LDL Cholesterol, Calc 11 mg/dL (0-100) 03/08/17 03:20 HDL Cholesterol 49 mg/dL (40-60) 03/08/17 03:20 Cholesterol/HDL Ratio 1.5 (0.0-5.0) 03/08/17 03:20 Specimen Type Clean catch urine 03/07/17 18:50 Urine Color Yellow (YELLOW) 03/07/17 18:50 Urine Appearance Hazy (CLEAR) 03/07/17 18:50 Urine pH 6.0 (5.0 - 8.0) 03/07/17 18:50 Ur Specific [place] 1.005 (1.000-1.030) 03/07/17 18:50 Urine Protein 2+ (NEGATIVE) 03/07/17 18:50 Urine Glucose (UA) Negative (NEGATIVE) 03/07/17 18:50 Urine Ketones Negative (NEGATIVE) 03/07/17 18:50 Urine Occult Blood 2+ (NEGATIVE) 03/07/17 18:50 Urine Nitrite Negative (NEGATIVE) 03/07/17 18:50 Urine Bilirubin Negative (NEGATIVE) 03/07/17 18:50 Urine Urobilinogen Normal (NORMAL) 03/07/17 18:50 Ur Leukocyte Esterase 3+ (NEGATIVE) 03/07/17 18:50 Urine RBC 0 - 3 /HPF (NEGATIVE) 03/07/17 18:50 Urine WBC Tntc with clumps /HPF (NEGATIVE) 03/07/17 18:50 Ur Squamous Epith Cells Few /HPF (NEGATIVE) 03/07/17 18:50 Amorphous Sediment 2+ /HPF (NEGATIVE) 03/07/17 18:50 Urine Bacteria 2+ /HPF (NEGATIVE) 03/07/17 18:50 Urine Mucus Moderate /HPF (NEGATIVE) 03/07/17 18:50 Ur Culture Indicated? Yes/culture set up 03/07/17 18:50 Digoxin < 0.30 ng/mL (0.9-2) L 03/07/17 18:03 - Plan (1) Chest pain, rule out acute myocardial infarction Status: Acute Plan: CARDIAC PROFILE, EKG, CHEST XRAY, MONITOR LABS (2) Left lower lobe pneumonia Status: Acute Qualifiers: Pneumonia type: due to unspecified organism Aspiration pneumonia type: A Qualified Code(s): J18.1 - Lobar pneumonia, unspecified organism Plan: CHEST XRAY, LEVAQUIN, FORTAZ, MONITOR LABS (3) Urinary tract infection Status: Acute Qualifiers: Urinary tract infection type: acute cystitis Hematuria presence: with hematuria Indwelling urinary catheter type: I Encounter type: E Qualified Code(s): N30.01 - Acute cystitis with hematuria Plan: LEVAQUIN, FORTAZ, MONITOR LABS
[2017-03-09] MEDS: XARELTO PO SCH (21:22)
[2017-03-09] MEDS: ZOCOR TAB 20 MG PO SCH (21:22)
[2017-03-09] MEDS: M.S. CONTIN 15 MG (EXTENDED RELEASE) PO PRN (22:17)
[2017-03-10] MEDS: DUONEB 0.5 MG/3 MG NEB SCH ×6 (00:47→21:04)
[2017-03-10] MEDS ORDERED: NS 1/2 1000 ML IV 1,000 ML IV ONE ×2 (01:56→17:31)
[2017-03-10] MEDS: NS 1/2 1000 ML IV 1,000 ML IV SCH ×4 (01:57→22:39)
[2017-03-10] MEDS: FORTAZ or TAZICEF INJ 1 GM in NS 50 ML IV + SPIKE MINIBAG* 50 ML IV SCH ×3 (05:29→21:45)
[2017-03-10 05:34] LABS: ALANINE AMINOTRANSFERASE 43 Units/L (12-78); ALBUMIN 2.6 g/dL (3.4-5.0); ALKALINE PHOSPHATASE 147 Units/L (46-116); ASPARTATE AMINO TRANSFERASE 14 Units/L (15-37); BLOOD UREA NITROGEN 13 mg/dL (7-18); CALCIUM 8.4 mg/dL (8.5-10.1); CARBON DIOXIDE 27.6 mmol/L (21-32); CHLORIDE 107 mmol/L (98-107); COR CA(FOR HYPOALB) 9.5 mg/dL (8.5-10.1); COR NA(FOR HYPERGLY) 143 mmol/L (136-145); CREATININE 1.07 mg/dL (0.70-1.30); GLUCOSE 130 mg/dL (65-99); SODIUM 142 mmol/L (136-145); TOTAL PROTEIN 6.8 g/dL (6.4-8.2); eGFR BLACK RACES > 60 (>60); eGFR NON BLACK RACES > 60 (>60)
[2017-03-10 05:40] LABS: BASOPHILS # (AUTO) 0.1 X10^3/uL (0.0-0.1); BASOPHILS % (AUTO) 1.2 % (0.2-1.0); EOSINOPHILS # (AUTO) 0.3 x10^3/uL (0.0-0.2); EOSINOPHILS % (AUTO) 3.7 % (0.9-2.9); HEMOGLOBIN 12.1 g/dL (13.5-18.0); LYMPHOCYTES # (AUTO) 1.8 X10^3/uL (1.3-2.9); LYMPHOCYTES % (AUTO) 25.7 % (21.0-51.0); MEAN CORPUSCULAR HEMOGLOBIN 27.8 pg (27.0-34.0); MEAN CORPUSCULAR HGB CONC 34.5 g/dL (33.0-35.0); MEAN CORPUSCULAR VOLUME 80.6 fL (80.0-100.0); MEAN PLATELET VOLUME 9.8 fL (7.4-11.0); MONOCYTES # (AUTO) 0.4 x10^3/uL (0.3-0.8); MONOCYTES % (AUTO) 5.2 % (0.0-13.0); NEUTROPHILS # (AUTO) 4.5 x10^3/uL (2.2-4.8); NEUTROPHILS % (AUTO) 64.2 % (42.0-75.0); PLATELET COUNT 127 X10^3/uL (150.0-450.0); RED BLOOD COUNT 4.34 X10^6/uL (4.7-6.0); RED CELL DISTRIBUTION WIDTH 15.1 % (11.6-16.5); WHITE BLOOD COUNT 7.1 X10^3/uL (3.6-10.0)
--- NOTE | 2017-03-10 06:14 | RAD ---
HISTORY: Shortness of breath, follow up pneumonia Study: Chest one view Comparison: March 07, 2017 Findings: The heart is enlarged. No congestive heart failure is noted. The right lung and left upper lung fiel ds are clear. There has been some improvement in the left lower lobe pneumonia being followed. Resid ual infiltrate remains and continued follow up is recommended. The remainder of the lung danielle are clear. The bony thorax is unremarkable. IMPRESSION: Improving left lower lobe pneumonia Cardiomegaly without congestive heart failure Reported By:
[2017-03-10] MEDS: PULMICORT NEB TX 0.5 MG NEB SCH ×2 (08:25→21:04)
[2017-03-10] MEDS: ROBITUSSIN DM PO SCH ×4 (08:49→21:51)
[2017-03-10] MEDS: LEVAQUIN PREMIX IV 750 MG 750 MG/150 ML BAG IV SCH (08:49)
[2017-03-10] MEDS: NORVASC TAB 10 MG PO SCH (08:50)
[2017-03-10] MEDS: COREG TAB 12.5 MG PO SCH ×2 (08:50→21:47)
[2017-03-10] MEDS: K-DUR TAB 20 MEQ PO SCH (08:50)
[2017-03-10] MEDS: PriLOSEC PO SCH (08:50)
[2017-03-10] MEDS: BUSPAR PO SCH ×2 (08:50→21:46)
[2017-03-10] MEDS: DIOVAN TAB 160 MG PO SCH (08:50)
[2017-03-10] MEDS: NEURONTIN CAP 100 MG PO SCH ×2 (08:50→21:46)
[2017-03-10] MEDS: ASPIRIN EC 81 MG PO SCH (08:50)
[2017-03-10] MEDS: ALBUMIN HUMAN 25%- 100ML 100 ML IV SCH (08:50)
[2017-03-10] MEDS: DESVENLAFAXINE SUCCINATE PO SCH (08:52)
[2017-03-10] MEDS: GENTAMICIN TOPICAL CRM TOP SCH ×2 (09:56→21:48)
--- NOTE | 2017-03-10 10:59 | PCM.PROG ---
Progress Note - Progress Note for Day of Date: 03/10/17 - Subjective Subjective: IS AWAKE IN BED ON MORNING ROUNDS. AT BEDSIDE. HE IS WITH COMPLAINTS OF PRODUCTIVE COUGH THIS MORNING. LUNGS ARE NOTED WITH WHEEZING BILATERALLY. VITALS THIS AM ARE 97.7,61,25,91,117/69. CBC WNL EXCEPT WBC IMPROVED FROM 9.7 TO 7.1, HGB 12.1, HCT 35, PLT COUNT 127. CMP WNL EXCEPT CALCIUM 8.4, ALKALINE PHOSPHATASE 147, ALBUMIN 2.6. INR 1.43, PTT 60.1. CHEST XRAY REPORTED IMPROVING LLL PNEUMONIA. ECHO REPORTED EF 53%. WE WILL RECHECK LABS AND XRAY AND FOLLOW UP WITH PATIENT IN AM. - Past Medical Family Social History Past Med/Fam/Surg Hx: No changes since H&P Allergies: Allergies clindamycin Allergy (Verified 03/07/17 17:50) methylprednisolone [From Solu-Medrol] Allergy (Verified 03/07/17 17:50) pregabalin [From Lyrica] Allergy (Verified 03/07/17 17:50) - Review of Systems ROS: No change since H&P - Vital Signs and I&O's Vital Signs: Temperature 97.7 F Pulse Rate [Apical] 61 Pulse Rate 60 Respiratory Rate 25 Blood Pressure [Right Arm] 117/69 O2 Sat by Pulse Oximetry 91 Intake and Output: Intake & Output 03/07/17 03/08/17 03/09/17 03/10/17 11:59 11:59 11:59 11:59 Intake Total 850 2629 2305 Output Total 600 3710 1460 Balance 250 -1081 845 - Physical Exam Oriented: Normal Eyes: Normal Ear: Normal Nose: Normal Throat: Normal Respiratory: Right, Left, Wheezes Cardiovascular: Normal. negative: Tachycardia, Bradycardia, Irregular, S3, S4, Systolic, Diastolic, Murmur, Edema, Other : Dysuria, Hematuria. negative: Normal, Frequency, Discharge, Testicular Pain , Bleeding, , Other Auscultation: Bowel Sounds: Normal. negative: Bruit, Absent, Increased, Decreased, High Pitched, Other Tenderness: Normal. negative: Diffuse, RUQ, RLQ, LUQ, LLQ, Epigastric, Periumbilical, Suprapubic, Mild, Moderate, Severe, Rebound, Guarding, Rigidity, Other Skin: Wound. negative: Decreased Turgur, Rash, Papular, Macular, Maculopapular , Vesicular, Pustular, Petechial, Red, Tender, Hot, Diaphoresis, Bruising, Ecchymosis, Other Musculoskeletal: Normal Psychiatric: Normal Mood Description: Calm Affect: Normal Speech Pattern: Clear, Appropriate - Laboratory and Diagnostics Result Diagrams: 03/10/17 04:55 03/10/17 04:55 Labs: 03/08/17 13:15 Sputum - Expectorated Sputum Sputum Culture - Final 03/08/17 13:15 Sputum - Expectorated Sputum - Final Laboratory WBC 7.1 X10^3/uL (3.6-10.0) 03/10/17 04:55 RBC 4.34 X10^6/uL (4.7-6.0) L 03/10/17 04:55 Hgb 12.1 g/dL (13.5-18.0) L 03/10/17 04:55 Hct 35.0 % (42.0-54.0) L 03/10/17 04:55 MCV 80.6 fL (80.0-100.0) 03/10/17 04:55 MCH 27.8 pg (27.0-34.0) 03/10/17 04:55 MCHC 34.5 g/dL (33.0-35.0) 03/10/17 04:55 RDW 15.1 % (11.6-16.5) 03/10/17 04:55 Plt Count 127 X10^3/uL (150.0-450.0) L 03/10/17 04:55 Plt Count Comment Adequate (ADEQUATE) 03/07/17 18:02 MPV 9.8 fL (7.4-11.0) 03/10/17 04:55 Neut % 64.2 % (42.0-75.0) 03/10/17 04:55 Lymph % 25.7 % (21.0-51.0) 03/10/17 04:55 [place] % 5.2 % (0.0-13.0) 03/10/17 04:55 Eos % 3.7 % (0.9-2.9) H 03/10/17 04:55 Baso % 1.2 % (0.2-1.0) H 03/10/17 04:55 Neut # 4.5 x10^3/uL (2.2-4.8) 03/10/17 04:55 Lymph # 1.8 X10^3/uL (1.3-2.9) 03/10/17 04:55 [place] # 0.4 x10^3/uL (0.3-0.8) 03/10/17 04:55 Eos # 0.3 x10^3/uL (0.0-0.2) H 03/10/17 04:55 Baso # 0.1 X10^3/uL (0.0-0.1) 03/10/17 04:55 Absolute Nucleated RBC 0.0 /100WBC 03/10/17 04:55 Total Counted 100 03/07/17 18:02 Neutrophils % (Manual) 77 % (39-76) H 03/07/17 18:02 Band Neutrophils % 11 % (0-10) H 03/07/17 18:02 Lymphocytes % (Manual) 8 % (13-43) L 03/07/17 18:02 Monocytes % (Manual) 4 % (4-9) 03/07/17 18:02 Plt Morphology Comment Normal (NORMAL) 03/07/17 18:02 RBC Morphology Normal (NORMAL) 03/07/17 18:02 INR Target Range - 03/10/17 04:55 INR 1.43 (0.8-1.3) H 03/10/17 04:55 PTT 60.1 SECONDS (22.9-36.5) H 03/10/17 04:55 PTT Comment - 03/10/17 04:55 D-Dimer 194 ng/mL (0-400) 03/07/17 18:03 Sodium 142 mmol/L (136-145) 03/10/17 04:55 Corrected Sodium 143 mmol/L (136-145) 03/10/17 04:55 Potassium 3.8 mmol/L (3.5-5.1) 03/10/17 04:55 Chloride 107 mmol/L (98-107) 03/10/17 04:55 Carbon Dioxide 27.6 mmol/L (21-32) 03/10/17 04:55 BUN 13 mg/dL (7-18) 03/10/17 04:55 Creatinine 1.07 mg/dL (0.70-1.30) 03/10/17 04:55 Est GFR (MDRD) Af Amer > 60 (>60) 03/10/17 04:55 Est GFR (MDRD) Non-Af > 60 (>60) 03/10/17 04:55 Glucose 130 mg/dL (65-99) H 03/10/17 04:55 Lactic Acid 1.9 mmol/L (0.4-2.0) 03/08/17 03:20 Calcium 8.4 mg/dL (8.5-10.1) L 03/10/17 04:55 Corrected Calcium 9.5 mg/dL (8.5-10.1) 03/10/17 04:55 Magnesium 1.8 mg/dL (1.7-2.9) 03/08/17 18:12 Total Bilirubin 0.50 mg/dL (0.2-1.0) 03/10/17 04:55 AST 14 Units/L (15-37) L 03/10/17 04:55 ALT 43 Units/L (12-78) 03/10/17 04:55 Alkaline Phosphatase 147 Units/L (46-116) H 03/10/17 04:55 Creatine Kinase 28 Units/L (39-308) L 03/08/17 09:58 CK-MB (CK-2) < 1.0 ng/mL (0-4.0) 03/08/17 09:58 CK/CKMB % Calc 3.6 % (<4) 03/08/17 09:58 Troponin I < 0.02 ng/mL (0-1.5) 03/08/17 09:58 B-Natriuretic Peptide 141 pg/mL (0-79) H 03/07/17 18:03 Total Protein 6.8 g/dL (6.4-8.2) 03/10/17 04:55 Albumin 2.6 g/dL (3.4-5.0) L 03/10/17 04:55 Globulin 4.2 g/dL (2.5-4.5) 03/10/17 04:55 Albumin/Globulin Ratio 0.6 Ratio (1.1-2.1) L 03/10/17 04:55 Triglycerides 67 mg/dL (0-150) 03/08/17 03:20 Cholesterol 73 mg/dL (0-200) 03/08/17 03:20 LDL Cholesterol, Calc 11 mg/dL (0-100) 03/08/17 03:20 HDL Cholesterol 49 mg/dL (40-60) 03/08/17 03:20 Cholesterol/HDL Ratio 1.5 (0.0-5.0) 03/08/17 03:20 Specimen Type Clean catch urine 03/07/17 18:50 Urine Color Yellow (YELLOW) 03/07/17 18:50 Urine Appearance Hazy (CLEAR) 03/07/17 18:50 Urine pH 6.0 (5.0 - 8.0) 03/07/17 18:50 Ur Specific [place] 1.005 (1.000-1.030) 03/07/17 18:50 Urine Protein 2+ (NEGATIVE) 03/07/17 18:50 Urine Glucose (UA) Negative (NEGATIVE) 03/07/17 18:50 Urine Ketones Negative (NEGATIVE) 03/07/17 18:50 Urine Occult Blood 2+ (NEGATIVE) 03/07/17 18:50 Urine Nitrite Negative (NEGATIVE) 03/07/17 18:50 Urine Bilirubin Negative (NEGATIVE) 03/07/17 18:50 Urine Urobilinogen Normal (NORMAL) 03/07/17 18:50 Ur Leukocyte Esterase 3+ (NEGATIVE) 03/07/17 18:50 Urine RBC 0 - 3 /HPF (NEGATIVE) 03/07/17 18:50 Urine WBC Tntc with clumps /HPF (NEGATIVE) 03/07/17 18:50 Ur Squamous Epith Cells Few /HPF (NEGATIVE) 03/07/17 18:50 Amorphous Sediment 2+ /HPF (NEGATIVE) 03/07/17 18:50 Urine Bacteria 2+ /HPF (NEGATIVE) 03/07/17 18:50 Urine Mucus Moderate /HPF (NEGATIVE) 03/07/17 18:50 Ur Culture Indicated? Yes/culture set up 03/07/17 18:50 Digoxin < 0.30 ng/mL (0.9-2) L 03/07/17 18:03 - Plan (1) Chest pain, rule out acute myocardial infarction Status: Acute Plan: CHEST XRAY, RECHECK LABS, CONTINUE TO MONITOR (2) Left lower lobe pneumonia Status: Acute Qualifiers: Pneumonia type: due to unspecified organism Aspiration pneumonia type: A Qualified Code(s): J18.1 - Lobar pneumonia, unspecified organism Plan: CHEST XRAY, LEVAQUIN, FORTAZ, MONITOR LABS (3) Urinary tract infection Status: Acute Qualifiers: Urinary tract infection type: acute cystitis Hematuria presence: with hematuria Indwelling urinary catheter type: I Encounter type: E Qualified Code(s): N30.01 - Acute cystitis with hematuria Plan: LEVAQUIN, FORTAZ, MONITOR LABS (4) Hyperalbuminemia Status: Acute Plan: CONTINUE ALBUMIN, CONTINUE TO MONITOR (5) Hypertension Status: Chronic Qualifiers: Hypertension type: essential hypertension Qualified Code(s): I10 - Essential (primary) hypertension Plan: CONTINUE NORVASC, CONTINUE COREG, CONTINUE TO MONITOR (6) Atrial fibrillation Status: Chronic Qualifiers: Atrial fibrillation type: A Plan: CONTINUE XARELTO, CONTINUE TO MONITOR (7) Congestive heart failure Status: Chronic Qualifiers: Congestive heart failure type: unspecified congestive heart failure type Congestive heart failure chronicity: C (8) GERD (gastroesophageal reflux disease) Status: Acute Qualifiers: Esophagitis presence: E Plan: CONTINUE PRILOSEC, CONTINUE TO MONITOR
[2017-03-10] MEDS: XARELTO PO SCH (21:51)
[2017-03-10] MEDS: ZOCOR TAB 20 MG PO SCH (21:51)
[2017-03-11] MEDS: DUONEB 0.5 MG/3 MG NEB SCH ×6 (00:48→20:26)
[2017-03-11] MEDS ORDERED: NS 1/2 1000 ML IV 1,000 ML IV ONE (05:39)
[2017-03-11] MEDS: FORTAZ or TAZICEF INJ 1 GM in NS 50 ML IV + SPIKE MINIBAG* 50 ML IV SCH ×3 (05:54→21:26)
[2017-03-11 05:57] LABS: BASOPHILS # (AUTO) 0.1 X10^3/uL (0.0-0.1); EOSINOPHILS # (AUTO) 0.3 x10^3/uL (0.0-0.2); EOSINOPHILS % (AUTO) 4.5 % (0.9-2.9); HEMATOCRIT 34.6 % (42.0-54.0); LYMPHOCYTES # (AUTO) 1.7 X10^3/uL (1.3-2.9); LYMPHOCYTES % (AUTO) 22.7 % (21.0-51.0); MEAN CORPUSCULAR HEMOGLOBIN 28.1 pg (27.0-34.0); MEAN CORPUSCULAR HGB CONC 34.8 g/dL (33.0-35.0); MEAN CORPUSCULAR VOLUME 80.7 fL (80.0-100.0); MEAN PLATELET VOLUME 9.4 fL (7.4-11.0); MONOCYTES # (AUTO) 0.5 x10^3/uL (0.3-0.8); NEUTROPHILS % (AUTO) 65.8 % (42.0-75.0); PLATELET COUNT 136 X10^3/uL (150.0-450.0); RED BLOOD COUNT 4.29 X10^6/uL (4.7-6.0); RED CELL DISTRIBUTION WIDTH 15.6 % (11.6-16.5); WHITE BLOOD COUNT 7.6 X10^3/uL (3.6-10.0)
[2017-03-11 06:14] LABS: ALANINE AMINOTRANSFERASE 32 Units/L (12-78); ALBUMIN 2.7 g/dL (3.4-5.0); ALKALINE PHOSPHATASE 127 Units/L (46-116); ASPARTATE AMINO TRANSFERASE 7 Units/L (15-37); BLOOD UREA NITROGEN 17 mg/dL (7-18); CALCIUM 8.1 mg/dL (8.5-10.1); CHLORIDE 106 mmol/L (98-107); COR CA(FOR HYPOALB) 9.1 mg/dL (8.5-10.1); COR NA(FOR HYPERGLY) 142 mmol/L (136-145); CREATININE 1.14 mg/dL (0.70-1.30); GLUCOSE 157 mg/dL (65-99); SODIUM 141 mmol/L (136-145); TOTAL PROTEIN 6.6 g/dL (6.4-8.2); eGFR BLACK RACES > 60 (>60); eGFR NON BLACK RACES > 60 (>60)
[2017-03-11] MEDS: NS 1/2 1000 ML IV 1,000 ML IV SCH ×2 (06:42→09:36)
--- NOTE | 2017-03-11 07:24 | RAD ---
HISTORY: Follow up pneumonia Study: Chest one view Comparison: March 10, 2017 Findings: The heart is mildly enlarged. No congestive heart failure is noted. Right basilar subsegmental atele ctasis is present. The right upper lung field and left upper lung danielle are clear. There is continu ed improvement in the left lower lobe pneumonia being followed. There is some residual infiltrate an d subsegmental atelectasis present in the left lower lobe. The bony thorax is unremarkable. IMPRESSION: Continued improvement left lower lobe pneumonia Bibasilar subsegmental atelectasis Cardiomegaly without congestive heart failure Reported By:
[2017-03-11] MEDS: ALBUMIN HUMAN 25%- 100ML 100 ML IV SCH (08:02)
[2017-03-11] MEDS: LEVAQUIN PREMIX IV 750 MG 750 MG/150 ML BAG IV SCH (08:02)
[2017-03-11] MEDS: ROBITUSSIN DM PO SCH ×5 (08:03→20:37)
[2017-03-11] MEDS: NORVASC TAB 10 MG PO SCH (08:04)
[2017-03-11] MEDS: COREG TAB 12.5 MG PO SCH ×2 (08:04→20:38)
[2017-03-11] MEDS: K-DUR TAB 20 MEQ PO SCH (08:04)
[2017-03-11] MEDS: DIOVAN TAB 160 MG PO SCH (08:04)
[2017-03-11] MEDS: ASPIRIN EC 81 MG PO SCH (08:04)
[2017-03-11] MEDS: PriLOSEC PO SCH (08:04)
[2017-03-11] MEDS: NEURONTIN CAP 100 MG PO SCH ×2 (08:04→20:38)
[2017-03-11] MEDS: BUSPAR PO SCH ×2 (08:11→20:38)
[2017-03-11] MEDS: DESVENLAFAXINE SUCCINATE PO SCH (08:11)
[2017-03-11] MEDS: GENTAMICIN TOPICAL CRM TOP SCH ×2 (08:12→20:39)
[2017-03-11] MEDS: PULMICORT NEB TX 0.5 MG NEB SCH ×2 (09:33→20:26)
--- NOTE | 2017-03-11 17:24 | PCM.PROG ---
Progress Note - Progress Note for Day of Date: 03/11/17 - Subjective Subjective: IS AWAKE IN BED ON MORNING ROUNDS. AT BEDSIDE. HE CONTINUES WITH COMPLAINTS OF PRODUCTIVE COUGH AND SHORTNESS OF BREATHTHIS MORNING. LUNGS ARE NOTED WITH WHEEZING BILATERALLY. STAFF REPORTED THAT PATIENT' S OXYGEN SATURATIONS DROP TO THE 80S AMBULATING ON ROOM AIR. VITALS THIS AM ARE 98.1,68,18,94,136/65. CBC WNL EXCEPT WBC 7.6, HGB 12.0, HCT 34.6, PLT COUNT 127. CMP WNL EXCEPT CALCIUM 8.1, ALKALINE PHOSPHATASE 127, ALBUMIN 2.7. INR 1.50 , PTT 61.1. CHEST XRAY REPORTED IMPROVING LLL PNEUMONIA. WE WILL SET UP HOME OXYGEN THERAPY. WE WILL RECHECK LABS AND XRAY AND FOLLOW UP WITH PATIENT IN AM. - Past Medical Family Social History Past Med/Fam/Surg Hx: No changes since H&P Allergies: Allergies clindamycin Allergy (Verified 03/07/17 17:50) methylprednisolone [From Solu-Medrol] Allergy (Verified 03/07/17 17:50) pregabalin [From Lyrica] Allergy (Verified 03/07/17 17:50) - Review of Systems ROS: No change since H&P - Vital Signs and I&O's Vital Signs: Temperature 98.0 F Pulse Rate [Apical] 63 Pulse Rate 69 Respiratory Rate 18 Blood Pressure [Right Arm] 139/71 O2 Sat by Pulse Oximetry 93 Intake and Output: Intake & Output 03/09/17 03/10/17 03/11/17 03/12/17 11:59 11:59 11:59 11:59 Intake Total 2629 2305 2075 840 Output Total 3710 1460 2220 1300 Balance -1081 844 -145 -989 - Physical Exam Oriented: Normal Eyes: Normal Ear: Normal Nose: Normal Throat: Normal Respiratory: Right, Left, Wheezes Cardiovascular: Normal. negative: Tachycardia, Bradycardia, Irregular, S3, S4, Systolic, Diastolic, Murmur, Edema, Other : Dysuria, Hematuria. negative: Normal, Frequency, Discharge, Testicular Pain , Bleeding, , Other Auscultation: Bowel Sounds: Normal. negative: Bruit, Absent, Increased, Decreased, High Pitched, Other Tenderness: Normal. negative: Diffuse, RUQ, RLQ, LUQ, LLQ, Epigastric, Periumbilical, Suprapubic, Mild, Moderate, Severe, Rebound, Guarding, Rigidity, Other Skin: Wound. negative: Decreased Turgur, Rash, Papular, Macular, Maculopapular , Vesicular, Pustular, Petechial, Red, Tender, Hot, Diaphoresis, Bruising, Ecchymosis, Other Musculoskeletal: Normal Psychiatric: Normal Mood Description: Calm Affect: Normal Speech Pattern: Clear, Appropriate - Laboratory and Diagnostics Result Diagrams: 03/11/17 05:10 03/11/17 05:10 Labs: 03/08/17 13:15 Sputum - Expectorated Sputum Sputum Culture - Final 03/08/17 13:15 Sputum - Expectorated Sputum - Final Laboratory WBC 7.6 X10^3/uL (3.6-10.0) 03/11/17 05:10 RBC 4.29 X10^6/uL (4.7-6.0) L 03/11/17 05:10 Hgb 12.0 g/dL (13.5-18.0) L 03/11/17 05:10 Hct 34.6 % (42.0-54.0) L 03/11/17 05:10 MCV 80.7 fL (80.0-100.0) 03/11/17 05:10 MCH 28.1 pg (27.0-34.0) 03/11/17 05:10 MCHC 34.8 g/dL (33.0-35.0) 03/11/17 05:10 RDW 15.6 % (11.6-16.5) 03/11/17 05:10 Plt Count 136 X10^3/uL (150.0-450.0) L 03/11/17 05:10 Plt Count Comment Adequate (ADEQUATE) 03/07/17 18:02 MPV 9.4 fL (7.4-11.0) 03/11/17 05:10 Neut % 65.8 % (42.0-75.0) 03/11/17 05:10 Lymph % 22.7 % (21.0-51.0) 03/11/17 05:10 [place] % 6.0 % (0.0-13.0) 03/11/17 05:10 Eos % 4.5 % (0.9-2.9) H 03/11/17 05:10 Baso % 1.0 % (0.2-1.0) 03/11/17 05:10 Neut # 5.0 x10^3/uL (2.2-4.8) H 03/11/17 05:10 Lymph # 1.7 X10^3/uL (1.3-2.9) 03/11/17 05:10 [place] # 0.5 x10^3/uL (0.3-0.8) 03/11/17 05:10 Eos # 0.3 x10^3/uL (0.0-0.2) H 03/11/17 05:10 Baso # 0.1 X10^3/uL (0.0-0.1) 03/11/17 05:10 Absolute Nucleated RBC 0.0 /100WBC 03/11/17 05:10 Total Counted 100 03/07/17 18:02 Neutrophils % (Manual) 77 % (39-76) H 03/07/17 18:02 Band Neutrophils % 11 % (0-10) H 03/07/17 18:02 Lymphocytes % (Manual) 8 % (13-43) L 03/07/17 18:02 Monocytes % (Manual) 4 % (4-9) 03/07/17 18:02 Plt Morphology Comment Normal (NORMAL) 03/07/17 18:02 RBC Morphology Normal (NORMAL) 03/07/17 18:02 INR Target Range - 03/11/17 05:10 INR 1.50 (0.8-1.3) H 03/11/17 05:10 PTT 61.1 SECONDS (22.9-36.5) H 03/11/17 05:10 PTT Comment - 03/11/17 05:10 D-Dimer 194 ng/mL (0-400) 03/07/17 18:03 Sodium 141 mmol/L (136-145) 03/11/17 05:10 Corrected Sodium 142 mmol/L (136-145) 03/11/17 05:10 Potassium 3.7 mmol/L (3.5-5.1) 03/11/17 05:10 Chloride 106 mmol/L (98-107) 03/11/17 05:10 Carbon Dioxide 26.0 mmol/L (21-32) 03/11/17 05:10 BUN 17 mg/dL (7-18) 03/11/17 05:10 Creatinine 1.14 mg/dL (0.70-1.30) 03/11/17 05:10 Est GFR (MDRD) Af Amer > 60 (>60) 03/11/17 05:10 Est GFR (MDRD) Non-Af > 60 (>60) 03/11/17 05:10 Glucose 157 mg/dL (65-99) H 03/11/17 05:10 Lactic Acid 1.9 mmol/L (0.4-2.0) 03/08/17 03:20 Calcium 8.1 mg/dL (8.5-10.1) L 03/11/17 05:10 Corrected Calcium 9.1 mg/dL (8.5-10.1) 03/11/17 05:10 Magnesium 1.8 mg/dL (1.7-2.9) 03/08/17 18:12 Total Bilirubin 0.50 mg/dL (0.2-1.0) 03/11/17 05:10 AST 7 Units/L (15-37) L 03/11/17 05:10 ALT 32 Units/L (12-78) 03/11/17 05:10 Alkaline Phosphatase 127 Units/L (46-116) H 03/11/17 05:10 Creatine Kinase 28 Units/L (39-308) L 03/08/17 09:58 CK-MB (CK-2) < 1.0 ng/mL (0-4.0) 03/08/17 09:58 CK/CKMB % Calc 3.6 % (<4) 03/08/17 09:58 Troponin I < 0.02 ng/mL (0-1.5) 03/08/17 09:58 B-Natriuretic Peptide 141 pg/mL (0-79) H 03/07/17 18:03 Total Protein 6.6 g/dL (6.4-8.2) 03/11/17 05:10 Albumin 2.7 g/dL (3.4-5.0) L 03/11/17 05:10 Globulin 3.9 g/dL (2.5-4.5) 03/11/17 05:10 Albumin/Globulin Ratio 0.7 Ratio (1.1-2.1) L 03/11/17 05:10 Triglycerides 67 mg/dL (0-150) 03/08/17 03:20 Cholesterol 73 mg/dL (0-200) 03/08/17 03:20 LDL Cholesterol, Calc 11 mg/dL (0-100) 03/08/17 03:20 HDL Cholesterol 49 mg/dL (40-60) 03/08/17 03:20 Cholesterol/HDL Ratio 1.5 (0.0-5.0) 03/08/17 03:20 Specimen Type Clean catch urine 03/07/17 18:50 Urine Color Yellow (YELLOW) 03/07/17 18:50 Urine Appearance Hazy (CLEAR) 03/07/17 18:50 Urine pH 6.0 (5.0 - 8.0) 03/07/17 18:50 Ur Specific [place] 1.005 (1.000-1.030) 03/07/17 18:50 Urine Protein 2+ (NEGATIVE) 03/07/17 18:50 Urine Glucose (UA) Negative (NEGATIVE) 03/07/17 18:50 Urine Ketones Negative (NEGATIVE) 03/07/17 18:50 Urine Occult Blood 2+ (NEGATIVE) 03/07/17 18:50 Urine Nitrite Negative (NEGATIVE) 03/07/17 18:50 Urine Bilirubin Negative (NEGATIVE) 03/07/17 18:50 Urine Urobilinogen Normal (NORMAL) 03/07/17 18:50 Ur Leukocyte Esterase 3+ (NEGATIVE) 03/07/17 18:50 Urine RBC 0 - 3 /HPF (NEGATIVE) 03/07/17 18:50 Urine WBC Tntc with clumps /HPF (NEGATIVE) 03/07/17 18:50 Ur Squamous Epith Cells Few /HPF (NEGATIVE) 03/07/17 18:50 Amorphous Sediment 2+ /HPF (NEGATIVE) 03/07/17 18:50 Urine Bacteria 2+ /HPF (NEGATIVE) 03/07/17 18:50 Urine Mucus Moderate /HPF (NEGATIVE) 03/07/17 18:50 Ur Culture Indicated? Yes/culture set up 03/07/17 18:50 Digoxin < 0.30 ng/mL (0.9-2) L 03/07/17 18:03 - Plan (1) Chest pain, rule out acute myocardial infarction Status: Acute Plan: CHEST XRAY, RECHECK LABS, CONTINUE TO MONITOR (2) Left lower lobe pneumonia Status: Acute Qualifiers: Pneumonia type: due to unspecified organism Aspiration pneumonia type: A Qualified Code(s): J18.1 - Lobar pneumonia, unspecified organism Plan: CHEST XRAY, LEVAQUIN, FORTAZ, MONITOR LABS (3) COPD exacerbation Status: Acute Plan: CONTINUE NEB TX, CONTINUE SUPPLEMENTAL OXYGEN, CHECK CHEST XRAY, CONTINUE TO MONITOR (4) Urinary tract infection Status: Acute Qualifiers: Urinary tract infection type: acute cystitis Hematuria presence: with hematuria Indwelling urinary catheter type: I Encounter type: E Qualified Code(s): N30.01 - Acute cystitis with hematuria Plan: LEVAQUIN, FORTAZ, MONITOR LABS (5) Hyperalbuminemia Status: Acute Plan: CONTINUE ALBUMIN, CONTINUE TO MONITOR (6) Hypertension Status: Chronic Qualifiers: Hypertension type: essential hypertension Qualified Code(s): I10 - Essential (primary) hypertension Plan: CONTINUE NORVASC, CONTINUE COREG, CONTINUE TO MONITOR (7) Atrial fibrillation Status: Chronic Qualifiers: Atrial fibrillation type: A Plan: CONTINUE XARELTO, CONTINUE TO MONITOR (8) Congestive heart failure Status: Chronic Qualifiers: Congestive heart failure type: unspecified congestive heart failure type Congestive heart failure chronicity: C (9) GERD (gastroesophageal reflux disease) Status: Acute Qualifiers: Esophagitis presence: E Plan: CONTINUE PRILOSEC, CONTINUE TO MONITOR
[2017-03-11] MEDS: ZOCOR TAB 20 MG PO SCH (20:38)
[2017-03-11] MEDS: XARELTO PO SCH (20:38)
[2017-03-11] MEDS: M.S. CONTIN 15 MG (EXTENDED RELEASE) PO PRN (22:17)
[2017-03-12] MEDS: DUONEB 0.5 MG/3 MG NEB SCH ×3 (00:05→08:56)
[2017-03-12] MEDS: NS 1/2 1000 ML IV 1,000 ML IV SCH (01:57)
[2017-03-12] MEDS: FORTAZ or TAZICEF INJ 1 GM in NS 50 ML IV + SPIKE MINIBAG* 50 ML IV SCH (05:04)
[2017-03-12 05:13] LABS: BASOPHILS # (AUTO) 0.1 X10^3/uL (0.0-0.1); BASOPHILS % (AUTO) 1.2 % (0.2-1.0); EOSINOPHILS # (AUTO) 0.4 x10^3/uL (0.0-0.2); EOSINOPHILS % (AUTO) 5.2 % (0.9-2.9); HEMATOCRIT 36.8 % (42.0-54.0); HEMOGLOBIN 12.7 g/dL (13.5-18.0); LYMPHOCYTES # (AUTO) 1.7 X10^3/uL (1.3-2.9); LYMPHOCYTES % (AUTO) 20.8 % (21.0-51.0); MEAN CORPUSCULAR HEMOGLOBIN 27.6 pg (27.0-34.0); MEAN CORPUSCULAR HGB CONC 34.3 g/dL (33.0-35.0); MEAN CORPUSCULAR VOLUME 80.5 fL (80.0-100.0); MEAN PLATELET VOLUME 9.2 fL (7.4-11.0); MONOCYTES # (AUTO) 0.6 x10^3/uL (0.3-0.8); MONOCYTES % (AUTO) 7.6 % (0.0-13.0); NEUTROPHILS # (AUTO) 5.4 x10^3/uL (2.2-4.8); NEUTROPHILS % (AUTO) 65.2 % (42.0-75.0); PLATELET COUNT 139 X10^3/uL (150.0-450.0); RED BLOOD COUNT 4.58 X10^6/uL (4.7-6.0); RED CELL DISTRIBUTION WIDTH 15.1 % (11.6-16.5); WHITE BLOOD COUNT 8.4 X10^3/uL (3.6-10.0)
[2017-03-12 05:33] LABS: ALANINE AMINOTRANSFERASE 28 Units/L (12-78); ALBUMIN 3.1 g/dL (3.4-5.0); ALKALINE PHOSPHATASE 121 Units/L (46-116); ASPARTATE AMINO TRANSFERASE 10 Units/L (15-37); BLOOD UREA NITROGEN 18 mg/dL (7-18); CALCIUM 8.7 mg/dL (8.5-10.1); CARBON DIOXIDE 27.8 mmol/L (21-32); CHLORIDE 106 mmol/L (98-107); COR CA(FOR HYPOALB) 9.4 mg/dL (8.5-10.1); COR NA(FOR HYPERGLY) 142 mmol/L (136-145); CREATININE 1.12 mg/dL (0.70-1.30); GLUCOSE 142 mg/dL (65-99); SODIUM 141 mmol/L (136-145); TOTAL PROTEIN 7.2 g/dL (6.4-8.2); eGFR BLACK RACES > 60 (>60); eGFR NON BLACK RACES > 60 (>60)
--- NOTE | 2017-03-12 06:42 | RAD ---
HISTORY: Follow up pneumonia Study: Chest one view Comparison: March 11, 2017 Findings: The heart remains mildly enlarged. No congestive heart failure is noted. The lungs are well inflated . There has been improvement in the previously noted bibasilar subsegmental atelectasis. No definite infiltrates are identified. No definite pleural effusions are identified. The bony thorax is unrema rkable. IMPRESSION: Cardiomegaly without congestive heart failure Lungs clear Reported By:
[2017-03-12] MEDS: ASPIRIN EC 81 MG PO SCH (08:30)
[2017-03-12] MEDS: ALBUMIN HUMAN 25%- 100ML 100 ML IV SCH (08:30)
[2017-03-12 08:31] VITALS: BP 157/82
[2017-03-12] MEDS: BUSPAR PO SCH (08:31)
[2017-03-12] MEDS: DIOVAN TAB 160 MG PO SCH (08:31)
[2017-03-12] MEDS: DESVENLAFAXINE SUCCINATE PO SCH (08:31)
[2017-03-12] MEDS: K-DUR TAB 20 MEQ PO SCH (08:31)
[2017-03-12] MEDS: LEVAQUIN PREMIX IV 750 MG 750 MG/150 ML BAG IV SCH (08:31)
[2017-03-12] MEDS: GENTAMICIN TOPICAL CRM TOP SCH (08:31)
[2017-03-12] MEDS: COREG TAB 12.5 MG PO SCH (08:31)
[2017-03-12] MEDS: PriLOSEC PO SCH (08:32)
[2017-03-12] MEDS: NEURONTIN CAP 100 MG PO SCH (08:32)
[2017-03-12] MEDS: NORVASC TAB 10 MG PO SCH (08:32)
[2017-03-12] MEDS: ROBITUSSIN DM PO SCH ×2 (08:32→12:08)
[2017-03-12] MEDS: PULMICORT NEB TX 0.5 MG NEB SCH (08:57)
== END 2017-03-12 13:15 | disposition home or self-care (01) | DRG 313 ==
LOC: ER 17:55 → ICU 21:38 → MED/SURG 03-10 12:00
PROVIDERS: ADMIT Internal Medicine; ATTEND Internal Medicine
DX: R07.89 Other chest pain (principal); J18.9 Pneumonia, unspecified organism; N30.01 Acute cystitis with hematuria; B96.1 Klebsiella pneumoniae [K. pneumoniae] as the cause of diseases classified elsewhere; I50.9 Heart failure, unspecified; N18.3 Chronic kidney disease, stage 3 (moderate); J44.9 Chronic obstructive pulmonary disease, unspecified; Z86.73 Personal history of transient ischemic attack (TIA), and cerebral infarction without residual deficits; L89.619 Pressure ulcer of right heel, unspecified stage; K21.9 Gastro-esophageal reflux disease without esophagitis; R26.81 Unsteadiness on feet
CPT/HCPCS: 36415; 71010; 80053; 80061; 80162; 81001; 82550; 82553; 83605; 83735; 83880; 84132; 84484; 85025; 85378; 85610; 85730; 87040; 87070; 87086; 87088; 87186; 87205; 93005; 93306; 94640; 96365; 96367; 96374; 99284; A4216; A4222; P9047; J0696; J0713; J1956; J2270; J7620; J7626

== ENCOUNTER 2017-07-29 13:39 | Inpatient (IN) | payer OTHER, MEDICAID ==
--- NOTE | 2017-07-29 14:42 | DR.CP ---
HPI - Time Seen Time seen: 18:06 - PCP Primary Care Physician: [email or web address] - HPI Comment HPI Comment: GETTING WORSE. PATIENT HAVE CHF AND COPD AND IS ON HOME OXYGEN. NONE HAVE HELP SO FAR. - Complaint Chief Complaint Doctor Comments: COUGH, CONGESTION AND CHEST PAIN TIMES 10 DAYS. LEVAQUIN STARTED WITHOUT IMPROVEMENT. Chief Complaint:: c/o fever,cough x 1 week-on levaquin since yesterday-saw pmd yesterday-was dx with bronchitis and "fluid build up"-on home o2 at night prn - Reviewed Nurses Notes Review: Yes - Source History Provided: Patient, Family Member - Mode of Arrival Mode of Arrival: Wheelchair - Timing Onset of Chief Complaint: 07/21/17 Came on: Suddenly Pain: Present Now - Duration Duration: Constant Duration: Days - Location Location of Chest Pain: Chest Chest Pain Radiation Location: None - Context Onset: At rest, With light exertion Cardiac Risk Factors: Family History, Hyperlipidemia, HTN, Diabetes PE Risk Factors: None History of: Similar pain in the past Prehospital Care: Oxygen - Quality Quality: Sharp - Severity Severity: Moderate - Modifying Factors Worsens: Nothing Impoves: Nothing - Associated Signs and Symptoms Associated Signs and Symptoms: Shortness of Breath PMH - PMH Past Medical History: Yes Past Medical History: Anxiety, CHF, COPD, Depression, Diabetes, Dyslipidemia, GERD, Hypertension, Sleep Apnea Past Medical History Comment: dvt Past Surgical History: Yes Surgical History: Other - Family History History of Family Medical Conditions: No Family Medical History: Diabetes Mellitus, Cancer, Heart Failure, Hypertension - Social History Do you use any recreational Drugs:: No - infectious screening In the last 2 months have you had wt loss of >10#?: NO Have you had fever, night sweats or hemotysis?: No Have you traveled outside the country in the last 6 months?: No Isolation: Standard ROS - Review of Systems Constitutional: No Symptoms Reported, Weakness, Fatigue. negative: Chills, Fever Eyes: negative: Eye Pain, Discharge ENTM: Nose Discharge, Nose Congestion, Throat Pain. negative: Ear Pain Respiratoy: Productive Cough, Short of Breath, Wheezing. negative: Hemoptysis Cardiovascular: Chest Pain, Edema Gastrointestinal/Abdominal: No Symptoms Reported Genitourinary: No Symptoms Reported Neurological: Headache, Weakness, Dizziness Musculoskeletal: Back Pain Integumentary: Dryness. negative: Change in Color, Juandice Hematologic/Lymphatic: Easy Bleeding, Easy Bruising Endocrine: No Symptoms Reported. negative: Flushing, Increased Thirst, Increased Urine All Other Systems: Reviewed and Negative PE - Vitals Vitals: Temperature 99.6 F Pulse Rate 69 Respiratory Rate 18 Blood Pressure [Right Arm] 157/82 Blood Pressure 116/64 O2 Sat by Pulse Oximetry 87 - General Limitations: No Limitations General Appearance: Alert - Head Head Exam: Normal Inspection - Eyes Eye exam: Normal Appearance, PERRL, EOMI. negative: Scleral Icterus, Conjunctival Injection - ENT ENT Exam: Normal External Ear Exam - Chest Chest Inspection: Symmetric Chest Wall Rise - Respiratory Respiratory Exam: Respiratory Distress Respiratory Exam: Bilateral Wheezing, Bilateral Rhonchi, Upper Wheezing, Upper Rhonchi, Lower Wheezing, Lower Rhonchi - Cardiovascular Cardiovascular Exam: Regular Rate, Normal Rhythm, Normal Heart Sounds - Abdominal Exam Abdominal Exam: Normal Bowel Sounds, Soft - Extremities Extremities Exam: Edema - Back Back Exam: Paraspinal Tenderness - Neurologic Neurological Exam: Alert, Oriented X3 - Psychiatric Psychiatric Exam: Normal Affect, Normal Mood - Skin Skin Exam: Erythema MDM - Additional Information Additional Information Obtained From: Family - Differential Diagnosis Differential Diagnosis: Angina, Chest Wall Pain, Cholelithasis, CHF, Costochondritis, Esophageal Reflux/Spasm, Gastritis, Myocardial Infarction, Pericarditis, Pleuritis, Pancreatitis, Pneumonia, Pneumothorax Course - Treatment Treatment: SEE ORDERS. - Consultation Consultation Comments: DISCUSS PATIENT WITH DR. NGUYEN. HE WILL ADMIT PATIENT. - Education/Counseling Education/Counseling: Patient, Family, Education Educated On: Treatment, Diagnosis, Needs for Follow Up ROR - Labs Reviewed Laboratory Results Reviewed?: Yes Result Diagrams: 07/30/17 04:50 07/30/17 04:50 Laboratory: WBC 9.0 X10^3/uL (3.6-10.0) 07/29/17 14:25 RBC 5.01 X10^6/uL (4.7-6.0) 07/29/17 14:25 Hgb 14.3 g/dL (13.5-18.0) 07/29/17 14:25 Hct 40.8 % (42.0-54.0) L 07/29/17 14:25 MCV 81.4 fL (80.0-100.0) 07/29/17 14:25 MCH 28.5 pg (27.0-34.0) 07/29/17 14:25 MCHC 35.0 g/dL (33.0-35.0) 07/29/17 14:25 RDW 14.5 % (11.6-16.5) 07/29/17 14:25 Plt Count 114 X10^3/uL (150.0-450.0) L 07/29/17 14:25 MPV 10.0 fL (7.4-11.0) 07/29/17 14:25 Neut % 72.4 % (42.0-75.0) 07/29/17 14:25 Lymph % 17.3 % (21.0-51.0) L 07/29/17 14:25 [place] % 9.0 % (0.0-13.0) 07/29/17 14:25 Eos % 1.0 % (0.9-2.9) 07/29/17 14:25 Baso % 0.3 % (0.2-1.0) 07/29/17 14:25 Neut # 6.5 x10^3/uL (2.2-4.8) H 07/29/17 14:25 Lymph # 1.6 X10^3/uL (1.3-2.9) 07/29/17 14:25 [place] # 0.8 x10^3/uL (0.3-0.8) 07/29/17 14:25 Eos # 0.1 x10^3/uL (0.0-0.2) 07/29/17 14:25 Baso # 0.0 X10^3/uL (0.0-0.1) 07/29/17 14:25 Absolute Nucleated RBC 0.0 /100WBC 07/29/17 14:25 D-Dimer 278 ng/mL (0-400) 07/29/17 14:25 Sodium 141 mmol/L (136-145) 07/29/17 14:25 Corrected Sodium 142 mmol/L (136-145) 07/29/17 14:25 Potassium 4.0 mmol/L (3.5-5.1) 07/29/17 14:25 Chloride 105 mmol/L (98-107) 07/29/17 14:25 Carbon Dioxide 28.1 mmol/L (21-32) 07/29/17 14:25 BUN 11 mg/dL (7-18) 07/29/17 14:25 Creatinine 1.25 mg/dL (0.70-1.30) 07/29/17 14:25 Est GFR (MDRD) Af Amer > 60 (>60) 07/29/17 14:25 Est GFR (MDRD) Non-Af > 60 (>60) 07/29/17 14:25 Glucose 124 mg/dL (65-99) H 07/29/17 14:25 Lactic Acid 1.0 mmol/L (0.4-2.0) 07/29/17 14:25 Calcium 8.6 mg/dL (8.5-10.1) 07/29/17 14:25 Corrected Calcium 9.2 mg/dL (8.5-10.1) 07/29/17 14:25 Total Bilirubin 1.00 mg/dL (0.2-1.0) 07/29/17 14:25 AST 26 Units/L (15-37) 07/29/17 14:25 ALT 34 Units/L (12-78) 07/29/17 14:25 Alkaline Phosphatase 228 Units/L (46-116) H 07/29/17 14:25 Creatine Kinase 77 Units/L (39-308) 07/29/17 14:25 CK-MB (CK-2) < 1.0 ng/mL (0-4.0) 07/29/17 14:25 CK/CKMB % Calc 1.3 % (<4) 07/29/17 14:25 Troponin I < 0.02 ng/mL (0-1.5) 07/29/17 14:25 B-Natriuretic Peptide 142 pg/mL (0-79) H 07/29/17 14:25 Total Protein 8.0 g/dL (6.4-8.2) 07/29/17 14:25 Albumin 3.3 g/dL (3.4-5.0) L 07/29/17 14:25 Globulin 4.7 g/dL (2.5-4.5) H 07/29/17 14:25 Albumin/Globulin Ratio 0.7 Ratio (1.1-2.1) L 07/29/17 14:25 Specimen Type Clean catch urine 07/29/17 14:40 Urine Color Yellow (YELLOW) 07/29/17 14:40 Urine Appearance Clear (CLEAR) 07/29/17 14:40 Urine pH 5.0 (5.0 - 8.0) 07/29/17 14:40 Ur Specific [place] 1.010 (1.000-1.030) 07/29/17 14:40 Urine Protein Negative (NEGATIVE) 07/29/17 14:40 Urine Glucose (UA) Negative (NEGATIVE) 07/29/17 14:40 Urine Ketones Negative (NEGATIVE) 07/29/17 14:40 Urine Occult Blood Negative (NEGATIVE) 07/29/17 14:40 Urine Nitrite Negative (NEGATIVE) 07/29/17 14:40 Urine Bilirubin Negative (NEGATIVE) 07/29/17 14:40 Urine Urobilinogen Normal (NORMAL) 07/29/17 14:40 Ur Leukocyte Esterase Negative (NEGATIVE) 07/29/17 14:40 Urine RBC None seen /HPF (NEGATIVE) 07/29/17 14:40 Urine WBC None seen /HPF (NEGATIVE) 07/29/17 14:40 Ur Squamous Epith Cells Negative /HPF (NEGATIVE) 07/29/17 14:40 Urine Bacteria Negative /HPF (NEGATIVE) 07/29/17 14:40 Ur Culture Indicated? No/not indicated 07/29/17 14:40 - XRAY XRAY Interpreted by: Radiologist XRAY Findings: REPORT DISCUSS WITH PATIENT AND . - EKG Rhythm: NSR (EKG NOTED) - Diagnosis Discharge Problem: COPD exacerbation, Bronchitis - Discharge Plan Disposition: 09 ADMITTED INPATIENT Condition: Stable - Follow ups/Referrals - Instructions
[2017-07-29 14:47] LABS: BILIRUBIN,URINE NEGATIVE (NEGATIVE); BLOOD/HEMOGLOBIN,URINE NEGATIVE (NEGATIVE); GLUCOSE, URINE NEGATIVE (NEGATIVE); KETONES,URINE NEGATIVE (NEGATIVE); LEUKOCYTE ESTERASE ,URINE NEGATIVE (NEGATIVE); NITRITES,URINE NEGATIVE (NEGATIVE); PROTEIN,URINE NEGATIVE (NEGATIVE); UROBILINOGEN,URINE NORMAL (NORMAL)
[2017-07-29 14:50] LABS: BASOPHILS % (AUTO) 0.3 % (0.2-1.0); EOSINOPHILS # (AUTO) 0.1 x10^3/uL (0.0-0.2); HEMATOCRIT 40.8 % (42.0-54.0); HEMOGLOBIN 14.3 g/dL (13.5-18.0); LYMPHOCYTES # (AUTO) 1.6 X10^3/uL (1.3-2.9); LYMPHOCYTES % (AUTO) 17.3 % (21.0-51.0); MEAN CORPUSCULAR HEMOGLOBIN 28.5 pg (27.0-34.0); MEAN CORPUSCULAR VOLUME 81.4 fL (80.0-100.0); MONOCYTES # (AUTO) 0.8 x10^3/uL (0.3-0.8); NEUTROPHILS # (AUTO) 6.5 x10^3/uL (2.2-4.8); NEUTROPHILS % (AUTO) 72.4 % (42.0-75.0); PLATELET COUNT 114 X10^3/uL (150.0-450.0); RED BLOOD COUNT 5.01 X10^6/uL (4.7-6.0); RED CELL DISTRIBUTION WIDTH 14.5 % (11.6-16.5)
--- NOTE | 2017-07-29 14:52 | RAD ---
Examination: Portable AP chest History: Chest pain, history of CHF Comparison reference: 03/12/2017 Findings: Continued normal heart size. Since prior study there is interval improvement in the vascula r congestion and interstitial prominence. There is now a minimal suspect atelectasis at the level of the left hemidiaphragm. There is no evidence for pulmonary edema, pneumonia or large pleural effusion . Impression: No definite CHF or pneumonia. Suspect minimal subsegmental atelectasis left base. Reported By:
[2017-07-29 14:55] LABS: ALANINE AMINOTRANSFERASE 34 Units/L (12-78); ALBUMIN 3.3 g/dL (3.4-5.0); ALKALINE PHOSPHATASE 228 Units/L (46-116); ASPARTATE AMINO TRANSFERASE 26 Units/L (15-37); BLOOD UREA NITROGEN 11 mg/dL (7-18); CALCIUM 8.6 mg/dL (8.5-10.1); CARBON DIOXIDE 28.1 mmol/L (21-32); CHLORIDE 105 mmol/L (98-107); COR CA(FOR HYPOALB) 9.2 mg/dL (8.5-10.1); COR NA(FOR HYPERGLY) 142 mmol/L (136-145); CREATININE 1.25 mg/dL (0.70-1.30); SODIUM 141 mmol/L (136-145); eGFR BLACK RACES > 60 (>60); eGFR NON BLACK RACES > 60 (>60)
[2017-07-29 15:00] LABS: APPEARANCE,URINE CLEAR (CLEAR); COLOR,URINE YELLOW (YELLOW)
[2017-07-29 15:01] LABS: BACTERIA,URINE NEGATIVE /HPF (NEGATIVE); RBC,URINE NONE SEEN /HPF (NEGATIVE); SQUAMOUS EPITHELIAL CELL,UR NEGATIVE /HPF (NEGATIVE)
[2017-07-29 15:04] LABS: B-TYPE NATRIURETIC PEPTIDE 142 pg/mL (0-79)
[2017-07-29 15:11] LABS: CKMB % 1.3 % (<4); CREATINE KINASE 77 Units/L (39-308); CREATINE KINASE MB < 1.0 ng/mL (0-4.0); TROPONIN I < 0.02 ng/mL (0-1.5)
[2017-07-29] MEDS ORDERED: ROCEPHIN VIAL 1 GM 1 GM in NS 50 ML IV + SPIKE MINIBAG* 50 ML IV ONE (15:20)
[2017-07-29] MEDS ORDERED: ROCEPHIN 1 GM IV PREMIX 1 GM/50 ML IV.SOLN. IV ONE (15:36)
[2017-07-29] MEDS ORDERED: SOLU-Medrol 40 MG VIAL IVP SCH (18:00)
[2017-07-29] MEDS: DUONEB 0.5 MG/3 MG NEB SCH (20:36)
[2017-07-29 21:37] LABS: CKMB % 1.5 % (<4); CREATINE KINASE 68 Units/L (39-308); CREATINE KINASE MB < 1.0 ng/mL (0-4.0); TROPONIN I < 0.02 ng/mL (0-1.5)
[2017-07-29] MEDS: M.S. CONTIN 15 MG (EXTENDED RELEASE) PO SCH (23:23)
[2017-07-30] MEDS: DUONEB 0.5 MG/3 MG NEB SCH ×6 (00:41→20:54)
[2017-07-30 00:57] VITALS: BMI 31.7
[2017-07-30] MEDS ORDERED: FLUVIRIN IM ONE ×2 (00:57→10:52)
[2017-07-30 06:08] LABS: BASOPHILS % (AUTO) 0.3 % (0.2-1.0); EOSINOPHILS # (AUTO) 0.1 x10^3/uL (0.0-0.2); EOSINOPHILS % (AUTO) 0.9 % (0.9-2.9); HEMOGLOBIN 12.5 g/dL (13.5-18.0); LYMPHOCYTES # (AUTO) 1.8 X10^3/uL (1.3-2.9); LYMPHOCYTES % (AUTO) 22.3 % (21.0-51.0); MEAN CORPUSCULAR HEMOGLOBIN 28.3 pg (27.0-34.0); MEAN CORPUSCULAR HGB CONC 34.8 g/dL (33.0-35.0); MEAN CORPUSCULAR VOLUME 81.4 fL (80.0-100.0); MEAN PLATELET VOLUME 9.9 fL (7.4-11.0); MONOCYTES # (AUTO) 0.8 x10^3/uL (0.3-0.8); MONOCYTES % (AUTO) 9.9 % (0.0-13.0); NEUTROPHILS # (AUTO) 5.4 x10^3/uL (2.2-4.8); NEUTROPHILS % (AUTO) 66.6 % (42.0-75.0); PLATELET COUNT 105 X10^3/uL (150.0-450.0); RED BLOOD COUNT 4.43 X10^6/uL (4.7-6.0); RED CELL DISTRIBUTION WIDTH 14.5 % (11.6-16.5)
[2017-07-30 06:18] LABS: ALANINE AMINOTRANSFERASE 23 Units/L (12-78); ALBUMIN 2.7 g/dL (3.4-5.0); ALKALINE PHOSPHATASE 171 Units/L (46-116); ASPARTATE AMINO TRANSFERASE 18 Units/L (15-37); BLOOD UREA NITROGEN 13 mg/dL (7-18); CARBON DIOXIDE 26.6 mmol/L (21-32); CHLORIDE 105 mmol/L (98-107); CKMB % 1.5 % (<4); CREATINE KINASE 68 Units/L (39-308); CREATINE KINASE MB < 1.0 ng/mL (0-4.0); CREATININE 1.19 mg/dL (0.70-1.30); MAGNESIUM 1.1 mg/dL (1.7-2.9); SODIUM 141 mmol/L (136-145); TOTAL PROTEIN 6.9 g/dL (6.4-8.2); TROPONIN I < 0.02 ng/mL (0-1.5); eGFR BLACK RACES > 60 (>60); eGFR NON BLACK RACES > 60 (>60)
[2017-07-30] MEDS ORDERED: MAGNESIUM SULFATE 1 GM/100 mL PREMIX 1 GM/100 ML BAG IV ONE ×2 (06:31→09:15)
[2017-07-30] MEDS: MAGNESIUM SULFATE 1 GM/100 mL PREMIX 2 GM/200 ML BAG IV SCH ×2 (06:40→10:15)
[2017-07-30] MEDS ORDERED: K-LYTE EFFERVESCENT PO ONE (07:00)
[2017-07-30] MEDS ORDERED: ROCEPHIN VIAL 1 GM ONE (09:14)
[2017-07-30] MEDS ORDERED: NS 50 ML IV 50 ML IV ONE (09:14)
[2017-07-30] MEDS: ROCEPHIN VIAL 1 GM 1 GM in D5W 50 ML IV 50 ML IV SCH (09:36)
[2017-07-30] MEDS: M.S. CONTIN 15 MG (EXTENDED RELEASE) PO SCH ×3 (09:36→21:03)
[2017-07-30 11:43] LABS: CKMB % 1.8 % (<4); CREATINE KINASE 55 Units/L (39-308); CREATINE KINASE MB < 1.0 ng/mL (0-4.0); TROPONIN I < 0.02 ng/mL (0-1.5)
[2017-07-30] MEDS ORDERED: MORPHINE SULFATE PO PRN (11:56)
[2017-07-30] MEDS ORDERED: PATIENT'S HOME MEDICATION (Rivaroxaban [Xarelto] 1 TAB) PO SCH (12:00)
[2017-07-30] MEDS ORDERED: GENTAMICIN TOPICAL CRM TOP SCH (12:00)
[2017-07-30] MEDS ORDERED: M.S. CONTIN 15 MG (EXTENDED RELEASE) PO SCH (14:00)
[2017-07-30] MEDS: PriLOSEC PO SCH (15:58)
[2017-07-30] MEDS: K-DUR TAB 20 MEQ PO SCH (15:59)
[2017-07-30] MEDS: NEURONTIN CAP 100 MG PO SCH ×2 (15:59→21:02)
[2017-07-30] MEDS: MUCINEX DM PO SCH ×2 (15:59→23:00)
[2017-07-30] MEDS: LASIX PO SCH (16:00)
[2017-07-30] MEDS: ASPIRIN EC 81 MG PO SCH (16:00)
[2017-07-30] MEDS: NORVASC TAB 10 MG PO SCH (16:00)
[2017-07-30] MEDS: DIOVAN TAB 160 MG PO SCH (16:00)
[2017-07-30] MEDS: BUSPAR PO SCH ×2 (16:00→21:04)
[2017-07-30] MEDS: DESVENLAFAXINE SUCCINATE PO SCH (16:01)
[2017-07-30] MEDS ORDERED: ZOFRAN INJ 4 MG VIAL IVP PRN (20:30)
[2017-07-30] MEDS: ZOCOR TAB 20 MG PO SCH (21:03)
[2017-07-30] MEDS: COREG TAB 12.5 MG PO SCH (21:04)
[2017-07-31] MEDS: DUONEB 0.5 MG/3 MG NEB SCH ×6 (00:30→21:33)
[2017-07-31 05:34] LABS: BASOPHILS % (AUTO) 0.4 % (0.2-1.0); EOSINOPHILS # (AUTO) 0.1 x10^3/uL (0.0-0.2); EOSINOPHILS % (AUTO) 1.8 % (0.9-2.9); HEMATOCRIT 35.5 % (42.0-54.0); HEMOGLOBIN 12.3 g/dL (13.5-18.0); LYMPHOCYTES # (AUTO) 1.4 X10^3/uL (1.3-2.9); LYMPHOCYTES % (AUTO) 21.9 % (21.0-51.0); MEAN CORPUSCULAR HEMOGLOBIN 28.5 pg (27.0-34.0); MEAN CORPUSCULAR HGB CONC 34.7 g/dL (33.0-35.0); MEAN CORPUSCULAR VOLUME 82.1 fL (80.0-100.0); MEAN PLATELET VOLUME 10.2 fL (7.4-11.0); MONOCYTES # (AUTO) 0.7 x10^3/uL (0.3-0.8); MONOCYTES % (AUTO) 12.1 % (0.0-13.0); NEUTROPHILS # (AUTO) 3.9 x10^3/uL (2.2-4.8); NEUTROPHILS % (AUTO) 63.8 % (42.0-75.0); PLATELET COUNT 121 X10^3/uL (150.0-450.0); RED BLOOD COUNT 4.33 X10^6/uL (4.7-6.0); RED CELL DISTRIBUTION WIDTH 14.5 % (11.6-16.5); WHITE BLOOD COUNT 6.2 X10^3/uL (3.6-10.0)
[2017-07-31 05:58] LABS: ALANINE AMINOTRANSFERASE 52 Units/L (12-78); ALBUMIN 2.5 g/dL (3.4-5.0); ALKALINE PHOSPHATASE 383 Units/L (46-116); ASPARTATE AMINO TRANSFERASE 73 Units/L (15-37); BLOOD UREA NITROGEN 14 mg/dL (7-18); CALCIUM 7.5 mg/dL (8.5-10.1); CHLORIDE 109 mmol/L (98-107); COR CA(FOR HYPOALB) 8.7 mg/dL (8.5-10.1); COR NA(FOR HYPERGLY) 145 mmol/L (136-145); CREATININE 1.16 mg/dL (0.70-1.30); SODIUM 144 mmol/L (136-145); TOTAL PROTEIN 6.7 g/dL (6.4-8.2); eGFR BLACK RACES > 60 (>60); eGFR NON BLACK RACES > 60 (>60)
[2017-07-31] MEDS: M.S. CONTIN 15 MG (EXTENDED RELEASE) PO SCH ×3 (06:00→22:19)
--- NOTE | 2017-07-31 06:45 | RAD ---
History: Bronchitis Study: Portable AP chest Comparison: July 29 Findings: There is limited inspiration. There is a new infiltrate in the right lower lobe. The heart size is prominent. The left lung is clear. There is no obvious effusion. Impression: New right lower lobe pneumonitis Reported By:
[2017-07-31] MEDS: XARELTO PO SCH (09:00)
[2017-07-31] MEDS: PriLOSEC PO SCH (09:00)
[2017-07-31] MEDS: DIOVAN TAB 160 MG PO SCH (09:00)
[2017-07-31] MEDS: LASIX PO SCH (09:01)
[2017-07-31] MEDS: BUSPAR PO SCH ×2 (09:01→22:18)
[2017-07-31] MEDS: K-DUR TAB 20 MEQ PO SCH (09:01)
[2017-07-31] MEDS: ASPIRIN EC 81 MG PO SCH (09:01)
[2017-07-31] MEDS: NEURONTIN CAP 100 MG PO SCH ×2 (09:02→22:18)
[2017-07-31] MEDS: NORVASC TAB 10 MG PO SCH (09:02)
[2017-07-31] MEDS: DESVENLAFAXINE SUCCINATE PO SCH (09:09)
[2017-07-31] MEDS ORDERED: NS 250 ML IV 0 ML IV ONE (09:34)
[2017-07-31] MEDS: ROCEPHIN VIAL 1 GM 1 GM in D5W 50 ML IV 50 ML IV SCH (09:39)
[2017-07-31 10:28] LABS: ABG BASE EXCESS 0.9 mmol/L (-2.0-2.0); ABG HCO3 26.6 mmol/L (22-26)
[2017-07-31 10:29] LABS: ABG ALLEN TEST POS
[2017-07-31] MEDS ORDERED: SALINE 3% 15 ML NEB TX ONE (10:51)
[2017-07-31] MEDS: LEVAQUIN PREMIX IV 750 MG 750 MG/150 ML BAG IV SCH (11:38)
[2017-07-31] MEDS: MUCINEX DM PO SCH ×2 (11:38→22:18)
[2017-07-31] MEDS: ZOCOR TAB 20 MG PO SCH (22:18)
[2017-07-31] MEDS: COREG TAB 12.5 MG PO SCH (22:18)
[2017-08-01] MEDS: DUONEB 0.5 MG/3 MG NEB SCH ×6 (00:17→20:46)
[2017-08-01] MEDS: M.S. CONTIN 15 MG (EXTENDED RELEASE) PO SCH ×4 (06:02→21:56)
[2017-08-01 06:14] LABS: BASOPHILS % (AUTO) 0.6 % (0.2-1.0); EOSINOPHILS # (AUTO) 0.3 x10^3/uL (0.0-0.2); EOSINOPHILS % (AUTO) 5.4 % (0.9-2.9); HEMATOCRIT 34.8 % (42.0-54.0); HEMOGLOBIN 11.9 g/dL (13.5-18.0); LYMPHOCYTES # (AUTO) 1.5 X10^3/uL (1.3-2.9); LYMPHOCYTES % (AUTO) 23.3 % (21.0-51.0); MEAN CORPUSCULAR HEMOGLOBIN 28.3 pg (27.0-34.0); MEAN CORPUSCULAR HGB CONC 34.2 g/dL (33.0-35.0); MEAN CORPUSCULAR VOLUME 82.7 fL (80.0-100.0); MEAN PLATELET VOLUME 9.9 fL (7.4-11.0); MONOCYTES # (AUTO) 0.7 x10^3/uL (0.3-0.8); MONOCYTES % (AUTO) 10.5 % (0.0-13.0); NEUTROPHILS # (AUTO) 3.9 x10^3/uL (2.2-4.8); NEUTROPHILS % (AUTO) 60.2 % (42.0-75.0); PLATELET COUNT 133 X10^3/uL (150.0-450.0); RED CELL DISTRIBUTION WIDTH 14.5 % (11.6-16.5); WHITE BLOOD COUNT 6.4 X10^3/uL (3.6-10.0)
[2017-08-01 06:45] LABS: ALANINE AMINOTRANSFERASE 41 Units/L (12-78); ALBUMIN 2.5 g/dL (3.4-5.0); ALKALINE PHOSPHATASE 271 Units/L (46-116); ASPARTATE AMINO TRANSFERASE 26 Units/L (15-37); BLOOD UREA NITROGEN 15 mg/dL (7-18); CALCIUM 8.4 mg/dL (8.5-10.1); CHLORIDE 105 mmol/L (98-107); COR CA(FOR HYPOALB) 9.6 mg/dL (8.5-10.1); COR NA(FOR HYPERGLY) 141 mmol/L (136-145); CREATININE 1.14 mg/dL (0.70-1.30); SODIUM 140 mmol/L (136-145); TOTAL PROTEIN 6.9 g/dL (6.4-8.2); eGFR BLACK RACES > 60 (>60); eGFR NON BLACK RACES > 60 (>60)
--- NOTE | 2017-08-01 07:18 | RAD ---
Chest, PA and lateral Indication: COPD Comparison: 07/31/2017 Findings: There are chronic interstitial changes of the lungs with hyperinflation, suggestive for QUALITY IMPROVEMENT ANALYST D. Right perihilar and lower lobe infiltrate is improved. No focal left lung infiltrates. Small right pleural effusion. Impression: Improving right perihilar and lower lobe infiltrate. Small right pleural effusion. Chroni c findings of COPD. Reported By:
[2017-08-01] MEDS: LASIX PO SCH (08:00)
[2017-08-01] MEDS: K-DUR TAB 20 MEQ PO SCH (09:08)
[2017-08-01] MEDS: XARELTO PO SCH (09:09)
[2017-08-01] MEDS: BUSPAR PO SCH ×2 (09:11→21:58)
[2017-08-01] MEDS: DIOVAN TAB 160 MG PO SCH (09:11)
[2017-08-01] MEDS: NORVASC TAB 10 MG PO SCH (09:11)
[2017-08-01] MEDS: ASPIRIN EC 81 MG PO SCH (09:11)
[2017-08-01] MEDS: LEVAQUIN PREMIX IV 750 MG 750 MG/150 ML BAG IV SCH (09:12)
[2017-08-01] MEDS: ROCEPHIN VIAL 1 GM 1 GM in D5W 50 ML IV 50 ML IV SCH (09:12)
[2017-08-01] MEDS: PriLOSEC PO SCH (09:17)
[2017-08-01] MEDS: NEURONTIN CAP 100 MG PO SCH ×2 (09:17→21:57)
[2017-08-01] MEDS: DESVENLAFAXINE SUCCINATE PO SCH (09:17)
[2017-08-01] MEDS: MUCINEX DM PO SCH ×2 (09:17→21:56)
[2017-08-01] MEDS: ZOCOR TAB 20 MG PO SCH (21:56)
[2017-08-01] MEDS: COREG TAB 12.5 MG PO SCH (21:57)
[2017-08-02] MEDS: DUONEB 0.5 MG/3 MG NEB SCH ×6 (00:36→21:03)
[2017-08-02] MEDS: M.S. CONTIN 15 MG (EXTENDED RELEASE) PO SCH ×3 (05:39→21:50)
[2017-08-02 05:44] LABS: BASOPHILS % (AUTO) 0.7 % (0.2-1.0); EOSINOPHILS # (AUTO) 0.2 x10^3/uL (0.0-0.2); EOSINOPHILS % (AUTO) 3.3 % (0.9-2.9); HEMATOCRIT 33.8 % (42.0-54.0); HEMOGLOBIN 11.7 g/dL (13.5-18.0); LYMPHOCYTES # (AUTO) 1.5 X10^3/uL (1.3-2.9); LYMPHOCYTES % (AUTO) 26.3 % (21.0-51.0); MEAN CORPUSCULAR HEMOGLOBIN 28.5 pg (27.0-34.0); MEAN CORPUSCULAR HGB CONC 34.6 g/dL (33.0-35.0); MEAN CORPUSCULAR VOLUME 82.3 fL (80.0-100.0); MEAN PLATELET VOLUME 9.8 fL (7.4-11.0); MONOCYTES # (AUTO) 0.6 x10^3/uL (0.3-0.8); NEUTROPHILS # (AUTO) 3.4 x10^3/uL (2.2-4.8); NEUTROPHILS % (AUTO) 58.7 % (42.0-75.0); PLATELET COUNT 152 X10^3/uL (150.0-450.0); RED BLOOD COUNT 4.11 X10^6/uL (4.7-6.0); RED CELL DISTRIBUTION WIDTH 14.1 % (11.6-16.5); WHITE BLOOD COUNT 5.7 X10^3/uL (3.6-10.0)
[2017-08-02 06:33] LABS: ALANINE AMINOTRANSFERASE 73 Units/L (12-78); ALBUMIN 2.6 g/dL (3.4-5.0); ALKALINE PHOSPHATASE 445 Units/L (46-116); ASPARTATE AMINO TRANSFERASE 53 Units/L (15-37); BLOOD UREA NITROGEN 15 mg/dL (7-18); CALCIUM 8.4 mg/dL (8.5-10.1); CARBON DIOXIDE 27.8 mmol/L (21-32); CHLORIDE 103 mmol/L (98-107); COR CA(FOR HYPOALB) 9.5 mg/dL (8.5-10.1); COR NA(FOR HYPERGLY) 138 mmol/L (136-145); SODIUM 138 mmol/L (136-145); eGFR BLACK RACES > 60 (>60); eGFR NON BLACK RACES > 60 (>60)
[2017-08-02] MEDS: DIOVAN TAB 160 MG PO SCH (09:07)
[2017-08-02] MEDS: K-DUR TAB 20 MEQ PO SCH (09:07)
[2017-08-02] MEDS: PriLOSEC PO SCH (09:07)
[2017-08-02] MEDS: MUCINEX DM PO SCH ×2 (09:08→21:50)
[2017-08-02] MEDS: BUSPAR PO SCH ×2 (09:08→21:50)
[2017-08-02] MEDS: NEURONTIN CAP 100 MG PO SCH ×2 (09:09→21:50)
[2017-08-02] MEDS: NORVASC TAB 10 MG PO SCH (09:09)
[2017-08-02] MEDS: LASIX PO SCH (09:09)
[2017-08-02] MEDS: ASPIRIN EC 81 MG PO SCH (09:09)
[2017-08-02] MEDS: XARELTO PO SCH (09:09)
[2017-08-02] MEDS: LEVAQUIN PREMIX IV 750 MG 750 MG/150 ML BAG IV SCH (09:10)
[2017-08-02] MEDS: ROCEPHIN VIAL 1 GM 1 GM in D5W 50 ML IV 50 ML IV SCH (09:11)
[2017-08-02] MEDS ORDERED: NS 250 ML IV 250 ML IV ONE (09:22)
[2017-08-02] MEDS: DESVENLAFAXINE SUCCINATE PO SCH (09:25)
[2017-08-02] MEDS: ROBITUSSIN DM PO SCH ×2 (17:19→21:49)
[2017-08-02] MEDS: MUCOMYST (RESPIRATORY USE ONLY) NEB SCH ×2 (17:36→21:03)
[2017-08-02] MEDS: PULMICORT NEB TX 0.5 MG NEB SCH (21:03)
[2017-08-02] MEDS ORDERED: MUCOMYST 20% 200 MG/ML ONE (21:18)
[2017-08-02] MEDS: COREG TAB 12.5 MG PO SCH (21:50)
[2017-08-02] MEDS: ZOCOR TAB 20 MG PO SCH (21:50)
[2017-08-03] MEDS: DUONEB 0.5 MG/3 MG NEB SCH ×5 (01:09→20:24)
[2017-08-03 04:54] LABS: BASOPHILS % (AUTO) 0.7 % (0.2-1.0); EOSINOPHILS # (AUTO) 0.2 x10^3/uL (0.0-0.2); EOSINOPHILS % (AUTO) 3.9 % (0.9-2.9); HEMATOCRIT 34.9 % (42.0-54.0); HEMOGLOBIN 11.9 g/dL (13.5-18.0); LYMPHOCYTES # (AUTO) 1.5 X10^3/uL (1.3-2.9); LYMPHOCYTES % (AUTO) 26.3 % (21.0-51.0); MEAN CORPUSCULAR HEMOGLOBIN 28.1 pg (27.0-34.0); MEAN CORPUSCULAR HGB CONC 34.2 g/dL (33.0-35.0); MEAN PLATELET VOLUME 9.8 fL (7.4-11.0); MONOCYTES # (AUTO) 0.7 x10^3/uL (0.3-0.8); MONOCYTES % (AUTO) 11.6 % (0.0-13.0); NEUTROPHILS # (AUTO) 3.2 x10^3/uL (2.2-4.8); NEUTROPHILS % (AUTO) 57.5 % (42.0-75.0); PLATELET COUNT 166 X10^3/uL (150.0-450.0); RED BLOOD COUNT 4.25 X10^6/uL (4.7-6.0); RED CELL DISTRIBUTION WIDTH 13.9 % (11.6-16.5); WHITE BLOOD COUNT 5.6 X10^3/uL (3.6-10.0)
[2017-08-03] MEDS: M.S. CONTIN 15 MG (EXTENDED RELEASE) PO SCH ×3 (05:24→21:49)
[2017-08-03 06:29] LABS: ALANINE AMINOTRANSFERASE 57 Units/L (12-78); ALBUMIN 2.6 g/dL (3.4-5.0); ALKALINE PHOSPHATASE 376 Units/L (46-116); ASPARTATE AMINO TRANSFERASE 34 Units/L (15-37); BLOOD UREA NITROGEN 18 mg/dL (7-18); CALCIUM 8.8 mg/dL (8.5-10.1); CARBON DIOXIDE 31.2 mmol/L (21-32); CHLORIDE 103 mmol/L (98-107); COR CA(FOR HYPOALB) 9.9 mg/dL (8.5-10.1); COR NA(FOR HYPERGLY) 139 mmol/L (136-145); CREATININE 1.18 mg/dL (0.70-1.30); SODIUM 138 mmol/L (136-145); TOTAL PROTEIN 7.2 g/dL (6.4-8.2); eGFR BLACK RACES > 60 (>60); eGFR NON BLACK RACES > 60 (>60)
[2017-08-03] MEDS ORDERED: PATIENT'S HOME MEDICATION (Budesonide-Formoterol 1 PUFF) INH SCH (09:00)
[2017-08-03] MEDS: MUCOMYST (RESPIRATORY USE ONLY) NEB SCH ×3 (09:15→20:25)
[2017-08-03] MEDS: PULMICORT NEB TX 0.5 MG NEB SCH ×2 (09:15→20:24)
[2017-08-03] MEDS: ASPIRIN EC 81 MG PO SCH (09:36)
[2017-08-03] MEDS: LEVAQUIN PREMIX IV 750 MG 750 MG/150 ML BAG IV SCH (09:37)
[2017-08-03] MEDS: BUSPAR PO SCH ×2 (09:37→21:49)
[2017-08-03] MEDS: DESVENLAFAXINE SUCCINATE PO SCH (09:37)
[2017-08-03] MEDS: DIOVAN TAB 160 MG PO SCH (09:37)
[2017-08-03] MEDS: K-DUR TAB 20 MEQ PO SCH (09:37)
[2017-08-03] MEDS: LASIX PO SCH (09:37)
[2017-08-03] MEDS: PriLOSEC PO SCH (09:38)
[2017-08-03] MEDS: MUCINEX DM PO SCH ×2 (09:38→21:49)
[2017-08-03] MEDS: NEURONTIN CAP 100 MG PO SCH ×3 (09:38→21:48)
[2017-08-03] MEDS: NORVASC TAB 10 MG PO SCH (09:38)
[2017-08-03] MEDS: ROBITUSSIN DM PO SCH ×4 (09:38→21:49)
[2017-08-03] MEDS: ROCEPHIN VIAL 1 GM 1 GM in D5W 50 ML IV 50 ML IV SCH (09:39)
[2017-08-03] MEDS: XARELTO PO SCH (09:39)
--- NOTE | 2017-08-03 12:12 | CT ---
HISTORY: Shortness of breath Study: CT chest without contrast Comparison: Radiograph 08/01/2017 Technique: Multiple axial images of the chest were obtained from the thoracic inlet to the upper abdo men without IV contrast. Dose reduction techniques including Automated Exposure Control (AEC) and ad justment of mA and kV were utilized. Findings: Please note evaluation is limited without IV contrast. Vessel patency not assessed. Normal appearance of the heart and pericardium. The aorta appears normal in course and caliber. There are bronchocentr ic ground-glass opacities in the right upper right lower lobe with bronchiolar thickening. There is t race right pleural effusion. Minimal bronchocentric opacities are seen in posterior left lung base. A irways are patent. No pneumothorax identified. There are enlarged mediastinal nodes present, for exam ple the largest precarinal lymph node on the right measuring 2.4 x 1.2 cm and largest subcarinal node measuring 3 x 2.8 cm. The soft tissues and osseous structures appear intact. The visualized portions of the upper abdomen a re grossly unremarkable. IMPRESSION: 1. There are scattered bronchocentric ground-glass opacities in the right upper lobe and right lower lobe with bronchiolar thickening and trace right effusion. Minimal opacities are also seen the bracelet former ior left lung base. Findings could represent bronchiolitis, correlate clinically. 2. Enlarged mediastinal lymph nodes as described that may be reactive in nature. Follow-up chest CT w ith contrast in 4-6 weeks after treatment may be beneficial to ensure resolution. Reported By:
[2017-08-03 16:22] LABS: ABG BASE EXCESS 6.6 mmol/L (-2.0-2.0)
[2017-08-03 16:24] LABS: ABG HCO3 32.8 mmol/L (22-26)
[2017-08-03] MEDS: COREG TAB 12.5 MG PO SCH (21:49)
[2017-08-03] MEDS: ZOCOR TAB 20 MG PO SCH (21:49)
[2017-08-03] MEDS: MILK OF MAGNESIA PO PRN (22:04)
[2017-08-03] MEDS: COLACE CAP 100 MG PO PRN (22:05)
[2017-08-04] MEDS: DUONEB 0.5 MG/3 MG NEB SCH ×6 (01:02→20:48)
--- NOTE | 2017-08-04 03:08 | CT ---
CT chest with contrast Indication: Shortness of breath Comparison: Noncontrast CT chest from earlier the same day Technique: CT images of the chest were obtained with IV contrast. Automatic exposure control was util ized. Findings: Images of the upper abdomen demonstrate a peripherally enhancing right renal mass measuring 4.5 x 3.7 cm (image 72, series 4). An 8 mm nonobstructing right renal stone is also noted. No upper abdominal adenopathy is seen. There is cholelithiasis. Mild reflux into the lower esophagus is noted. No acute skeletal abnormality. The heart size is normal, without significant pericardial thickening or pericardial effusion. The tho racic aorta is grossly normal. No large central pulmonary arterial filling defect is identified. Enla rged mediastinal and hilar lymph nodes are unchanged from prior. Patchy right lower and middle lobe ground-glass opacities are unchanged. There are mild interstitial changes of the lung bases. Trace right pleural effusion is noted. There are mild emphysematous change s in the upper lobes. Impression: 1. Enhancing 4.5 cm right renal mass is renal cell carcinoma until proven otherwise. Recommend renal protocol CT or MRI for further evaluation. 2. No significant change in the patchy right lung ground-glass opacities or intrathoracic adenopathy. See earlier CT chest for recommendations. 3. Nonobstructing subcentimeter right renal stone. Cholelithiasis. Reported By:
[2017-08-04] MEDS: M.S. CONTIN 15 MG (EXTENDED RELEASE) PO SCH ×3 (05:49→21:41)
[2017-08-04 06:01] LABS: BASOPHILS # (AUTO) 0.1 X10^3/uL (0.0-0.1); BASOPHILS % (AUTO) 0.8 % (0.2-1.0); EOSINOPHILS # (AUTO) 0.1 x10^3/uL (0.0-0.2); EOSINOPHILS % (AUTO) 1.7 % (0.9-2.9); HEMATOCRIT 35.1 % (42.0-54.0); HEMOGLOBIN 12.2 g/dL (13.5-18.0); LYMPHOCYTES # (AUTO) 1.5 X10^3/uL (1.3-2.9); LYMPHOCYTES % (AUTO) 22.3 % (21.0-51.0); MEAN CORPUSCULAR HEMOGLOBIN 28.2 pg (27.0-34.0); MEAN CORPUSCULAR HGB CONC 34.7 g/dL (33.0-35.0); MEAN CORPUSCULAR VOLUME 81.3 fL (80.0-100.0); MEAN PLATELET VOLUME 9.8 fL (7.4-11.0); MONOCYTES # (AUTO) 0.7 x10^3/uL (0.3-0.8); MONOCYTES % (AUTO) 10.4 % (0.0-13.0); NEUTROPHILS # (AUTO) 4.2 x10^3/uL (2.2-4.8); NEUTROPHILS % (AUTO) 64.8 % (42.0-75.0); PLATELET COUNT 177 X10^3/uL (150.0-450.0); RED BLOOD COUNT 4.32 X10^6/uL (4.7-6.0); WHITE BLOOD COUNT 6.5 X10^3/uL (3.6-10.0)
[2017-08-04 06:31] LABS: ALANINE AMINOTRANSFERASE 98 Units/L (12-78); ALBUMIN 2.6 g/dL (3.4-5.0); ALKALINE PHOSPHATASE 582 Units/L (46-116); ASPARTATE AMINO TRANSFERASE 142 Units/L (15-37); BLOOD UREA NITROGEN 24 mg/dL (7-18); CARBON DIOXIDE 27.4 mmol/L (21-32); CHLORIDE 104 mmol/L (98-107); COR CA(FOR HYPOALB) 10.1 mg/dL (8.5-10.1); CREATININE 1.27 mg/dL (0.70-1.30); SODIUM 140 mmol/L (136-145); TOTAL PROTEIN 7.3 g/dL (6.4-8.2); eGFR BLACK RACES > 60 (>60); eGFR NON BLACK RACES > 60 (>60)
[2017-08-04] MEDS: MUCOMYST (RESPIRATORY USE ONLY) NEB SCH ×4 (08:22→20:49)
[2017-08-04] MEDS: PULMICORT NEB TX 0.5 MG NEB SCH ×2 (08:22→20:48)
[2017-08-04] MEDS: ASPIRIN EC 81 MG PO SCH (08:30)
[2017-08-04] MEDS: DESVENLAFAXINE SUCCINATE PO SCH (08:30)
[2017-08-04] MEDS: DIOVAN TAB 160 MG PO SCH (08:30)
[2017-08-04] MEDS: BUSPAR PO SCH ×2 (08:30→21:41)
[2017-08-04] MEDS: LEVAQUIN PREMIX IV 750 MG 750 MG/150 ML BAG IV SCH (08:31)
[2017-08-04] MEDS: K-DUR TAB 20 MEQ PO SCH (08:31)
[2017-08-04] MEDS: MUCINEX DM PO SCH ×2 (08:31→21:41)
[2017-08-04] MEDS: NEURONTIN CAP 100 MG PO SCH ×2 (08:31→21:41)
[2017-08-04] MEDS: LASIX PO SCH (08:31)
[2017-08-04] MEDS: NORVASC TAB 10 MG PO SCH (08:31)
[2017-08-04] MEDS: XARELTO PO SCH (08:32)
[2017-08-04] MEDS: ROBITUSSIN DM PO SCH ×4 (08:32→21:40)
[2017-08-04] MEDS: PriLOSEC PO SCH (08:32)
[2017-08-04] MEDS: ROCEPHIN VIAL 1 GM 1 GM in D5W 50 ML IV 50 ML IV SCH (08:32)
[2017-08-04] MEDS: ZOCOR TAB 20 MG PO SCH (21:41)
[2017-08-04] MEDS: COREG TAB 12.5 MG PO SCH (21:42)
[2017-08-05] MEDS: DUONEB 0.5 MG/3 MG NEB SCH ×7 (01:25→21:11)
[2017-08-05 05:32] LABS: BASOPHILS # (AUTO) 0.1 X10^3/uL (0.0-0.1); BASOPHILS % (AUTO) 1.1 % (0.2-1.0); EOSINOPHILS # (AUTO) 0.2 x10^3/uL (0.0-0.2); EOSINOPHILS % (AUTO) 3.6 % (0.9-2.9); HEMATOCRIT 36.2 % (42.0-54.0); HEMOGLOBIN 12.4 g/dL (13.5-18.0); LYMPHOCYTES # (AUTO) 1.6 X10^3/uL (1.3-2.9); LYMPHOCYTES % (AUTO) 24.7 % (21.0-51.0); MEAN CORPUSCULAR HEMOGLOBIN 28.1 pg (27.0-34.0); MEAN CORPUSCULAR HGB CONC 34.2 g/dL (33.0-35.0); MEAN CORPUSCULAR VOLUME 82.2 fL (80.0-100.0); MEAN PLATELET VOLUME 9.7 fL (7.4-11.0); MONOCYTES # (AUTO) 0.6 x10^3/uL (0.3-0.8); MONOCYTES % (AUTO) 8.8 % (0.0-13.0); NEUTROPHILS # (AUTO) 3.9 x10^3/uL (2.2-4.8); NEUTROPHILS % (AUTO) 61.8 % (42.0-75.0); PLATELET COUNT 191 X10^3/uL (150.0-450.0); RED BLOOD COUNT 4.41 X10^6/uL (4.7-6.0); RED CELL DISTRIBUTION WIDTH 14.2 % (11.6-16.5); WHITE BLOOD COUNT 6.3 X10^3/uL (3.6-10.0)
[2017-08-05 05:47] LABS: ALANINE AMINOTRANSFERASE 82 Units/L (12-78); ALBUMIN 2.8 g/dL (3.4-5.0); ALKALINE PHOSPHATASE 473 Units/L (46-116); ASPARTATE AMINO TRANSFERASE 49 Units/L (15-37); BLOOD UREA NITROGEN 22 mg/dL (7-18); CHLORIDE 102 mmol/L (98-107); COR NA(FOR HYPERGLY) 141 mmol/L (136-145); CREATININE 1.39 mg/dL (0.70-1.30); SODIUM 140 mmol/L (136-145); TOTAL PROTEIN 7.7 g/dL (6.4-8.2); eGFR BLACK RACES > 60 (>60); eGFR NON BLACK RACES 56 (>60)
[2017-08-05] MEDS: M.S. CONTIN 15 MG (EXTENDED RELEASE) PO SCH ×4 (06:07→21:10)
[2017-08-05] MEDS ORDERED: NS 50 ML IV 50 ML IV ONE (08:05)
[2017-08-05] MEDS ORDERED: ROCEPHIN VIAL 1 GM ONE (08:05)
[2017-08-05] MEDS: PULMICORT NEB TX 0.5 MG NEB SCH ×2 (09:22→21:11)
[2017-08-05] MEDS: MUCOMYST (RESPIRATORY USE ONLY) NEB SCH ×4 (09:22→21:12)
[2017-08-05] MEDS: ASPIRIN EC 81 MG PO SCH (11:13)
[2017-08-05] MEDS: DESVENLAFAXINE SUCCINATE PO SCH (11:13)
[2017-08-05] MEDS: DIOVAN TAB 160 MG PO SCH (11:13)
[2017-08-05] MEDS: BUSPAR PO SCH ×2 (11:13→20:49)
[2017-08-05] MEDS: K-DUR TAB 20 MEQ PO SCH (11:14)
[2017-08-05] MEDS: LEVAQUIN PREMIX IV 750 MG 750 MG/150 ML BAG IV SCH (11:14)
[2017-08-05] MEDS: MUCINEX DM PO SCH ×2 (11:14→20:49)
[2017-08-05] MEDS: LASIX PO SCH (11:14)
[2017-08-05] MEDS: PriLOSEC PO SCH (11:15)
[2017-08-05] MEDS: NORVASC TAB 10 MG PO SCH (11:15)
[2017-08-05] MEDS: NEURONTIN CAP 100 MG PO SCH ×2 (11:15→20:48)
[2017-08-05] MEDS: ROBITUSSIN DM PO SCH ×4 (11:15→21:09)
[2017-08-05] MEDS: ROCEPHIN VIAL 1 GM 1 GM in D5W 50 ML IV 50 ML IV SCH (11:16)
[2017-08-05] MEDS: XARELTO PO SCH (11:16)
--- NOTE | 2017-08-05 14:53 | MRI ---
History: Right renal mass. Study: MRI abdomen with and without contrast. Comparison: CT chest dated August 03, 2017. Technique: Multiplanar/multisequence imaging of the abdomen. Postcontrast sequences were also perform ed after the uneventful administration of 20 cc Omniscan IV contrast. MRCP sequences were also perfor med. Findings: The visualized liver, spleen, pancreas, adrenals, and left kidney appear normal. Multiple g allstones and layering sludge is seen within the gallbladder lumen. No secondary signs to suggest cho lecystitis. Known nonobstructing stone within the right kidney is better seen on comparison CT. Withi n the right inferior renal pole there is a predominantly exophytic heterogeneous 3.7 x 4.4 x 5.1 cm m ass with central necrosis. This demonstrates avid contrast enhancement. No obvious renal vein thrombo sis or pathologic lymphadenopathy. No invasion of adjacent structures or obvious extension outsideGer potato chip cooker machine's fascia. Remaining abdominal structures are unremarkable. No other areas of abnormal contrast en hancement. MRCP sequences: No evidence of intra/extra hepatic biliary ductal dilatation or focal stenosis. Impression: 5.1 cm mass within the right kidney as above. This most likely represents renal cell carc inoma. TNM staging: T1b N0 M0. Reported By:
[2017-08-05] MEDS ORDERED: MUCOMYST 20% 200 MG/ML ONE (16:51)
[2017-08-05] MEDS: COLACE CAP 100 MG PO PRN (17:33)
[2017-08-05] MEDS: TUSSIONEX PENNKINETIC SUSP PO PRN (20:49)
[2017-08-05] MEDS: ZOCOR TAB 20 MG PO SCH (20:49)
[2017-08-05] MEDS: COREG TAB 12.5 MG PO SCH (20:49)
--- NOTE | 2017-08-05 21:53 | RAD ---
HISTORY: Shortness of breath, abnormal CT Study: PA and lateral views of the chest Comparison: CT 08/03/2017 Findings: There is persistent soft tissue fullness in the right hilar region. No infiltrate, effusion or pneumo thorax identified. The cardiac and mediastinal contours are within normal limits. The soft tissues a re unremarkable. IMPRESSION: 1. Stable soft tissue fullness in the right hilar region corresponding to adenopathy seen on recent c hest CT. Reported By:
[2017-08-06] MEDS: DUONEB 0.5 MG/3 MG NEB SCH ×6 (01:04→20:34)
[2017-08-06 04:41] LABS: BASOPHILS # (AUTO) 0.1 X10^3/uL (0.0-0.1); BASOPHILS % (AUTO) 1.3 % (0.2-1.0); EOSINOPHILS # (AUTO) 0.2 x10^3/uL (0.0-0.2); EOSINOPHILS % (AUTO) 3.4 % (0.9-2.9); HEMATOCRIT 36.2 % (42.0-54.0); HEMOGLOBIN 12.3 g/dL (13.5-18.0); LYMPHOCYTES # (AUTO) 1.6 X10^3/uL (1.3-2.9); LYMPHOCYTES % (AUTO) 26.4 % (21.0-51.0); MEAN CORPUSCULAR VOLUME 82.5 fL (80.0-100.0); MEAN PLATELET VOLUME 9.3 fL (7.4-11.0); MONOCYTES # (AUTO) 0.5 x10^3/uL (0.3-0.8); MONOCYTES % (AUTO) 8.4 % (0.0-13.0); NEUTROPHILS # (AUTO) 3.7 x10^3/uL (2.2-4.8); NEUTROPHILS % (AUTO) 60.5 % (42.0-75.0); PLATELET COUNT 192 X10^3/uL (150.0-450.0); RED BLOOD COUNT 4.39 X10^6/uL (4.7-6.0); RED CELL DISTRIBUTION WIDTH 14.2 % (11.6-16.5); WHITE BLOOD COUNT 6.1 X10^3/uL (3.6-10.0)
[2017-08-06 04:49] LABS: ALANINE AMINOTRANSFERASE 66 Units/L (12-78); ALBUMIN 2.7 g/dL (3.4-5.0); ALKALINE PHOSPHATASE 400 Units/L (46-116); ASPARTATE AMINO TRANSFERASE 31 Units/L (15-37); BLOOD UREA NITROGEN 23 mg/dL (7-18); CALCIUM 8.7 mg/dL (8.5-10.1); CARBON DIOXIDE 30.1 mmol/L (21-32); CHLORIDE 105 mmol/L (98-107); COR CA(FOR HYPOALB) 9.7 mg/dL (8.5-10.1); COR NA(FOR HYPERGLY) 142 mmol/L (136-145); SODIUM 142 mmol/L (136-145); TOTAL PROTEIN 7.5 g/dL (6.4-8.2); eGFR BLACK RACES > 60 (>60); eGFR NON BLACK RACES 56 (>60)
[2017-08-06] MEDS: M.S. CONTIN 15 MG (EXTENDED RELEASE) PO SCH ×3 (05:20→22:55)
[2017-08-06] MEDS: MUCOMYST (RESPIRATORY USE ONLY) NEB SCH ×4 (08:52→20:34)
[2017-08-06] MEDS: PULMICORT NEB TX 0.5 MG NEB SCH ×2 (08:52→20:35)
[2017-08-06] MEDS: ROCEPHIN VIAL 1 GM 1 GM in D5W 50 ML IV 50 ML IV SCH (09:20)
[2017-08-06] MEDS: XARELTO PO SCH (09:21)
[2017-08-06] MEDS: ROBITUSSIN DM PO SCH ×4 (09:21→21:10)
[2017-08-06] MEDS: NEURONTIN CAP 100 MG PO SCH ×2 (09:21→20:53)
[2017-08-06] MEDS: COLACE CAP 100 MG PO SCH ×2 (09:21→20:53)
[2017-08-06] MEDS: K-DUR TAB 20 MEQ PO SCH (09:22)
[2017-08-06] MEDS: NORVASC TAB 10 MG PO SCH (09:22)
[2017-08-06] MEDS: ASPIRIN EC 81 MG PO SCH (09:22)
[2017-08-06] MEDS: PriLOSEC PO SCH (09:22)
[2017-08-06] MEDS: LASIX PO SCH (09:22)
[2017-08-06] MEDS: MUCINEX DM PO SCH ×2 (09:22→20:53)
[2017-08-06] MEDS: BUSPAR PO SCH ×2 (09:22→20:54)
[2017-08-06] MEDS: DIOVAN TAB 160 MG PO SCH (09:23)
[2017-08-06] MEDS: DESVENLAFAXINE SUCCINATE PO SCH (09:23)
[2017-08-06] MEDS: LEVAQUIN PREMIX IV 750 MG 750 MG/150 ML BAG IV SCH (09:32)
--- NOTE | 2017-08-06 15:54 | PCM.PROG ---
Progress Note - Progress Note for Day of Date: 08/06/17 - Subjective Subjective: CCC, WHEEZING, RUQ PAIN AND NAUSEA - Past Medical Family Social History Past Med/Fam/Surg Hx: No changes since H&P Allergies: Allergies clindamycin Allergy (Verified 03/07/17 17:50) methylprednisolone [From Solu-Medrol] Allergy (Verified 03/07/17 17:50) pregabalin [From Lyrica] Allergy (Verified 03/07/17 17:50) - Review of Systems ROS: No change since H&P - Vital Signs and I&O's Vital Signs: Temperature 97.7 F Pulse Rate [Right Brachial] 69 Pulse Rate [Left Brachial] 70 Pulse Rate 74 Respiratory Rate 22 Blood Pressure [Right Arm] 132/72 Blood Pressure 116/64 O2 Sat by Pulse Oximetry 88 Intake and Output: Intake & Output 08/04/17 08/05/17 08/06/17 08/07/17 11:59 11:59 11:59 11:59 Intake Total 6713 042 3607 Balance 3287 525 6429 - Physical Exam Oriented: Normal Eyes: Normal Ear: Normal Nose: Normal Throat: Dry Respiratory: Wheezes, Rhonchi Cardiovascular: Normal : Normal Tenderness: RUQ Skin: Decreased Turgur Musculoskeletal: Leg, Back:Lumbar, Deformity (RLE), Sensory Deficit Psychiatric: Anxiety, Depression Speech Pattern: Clear, Appropriate - Laboratory and Diagnostics Result Diagrams: 08/06/17 04:00 08/06/17 04:00 Labs: 07/29/17 14:27 Blood Blood Culture - Final 07/29/17 14:25 Blood Blood Culture - Final 07/31/17 11:26 Sputum - Expectorated Sputum Sputum Culture - Final 07/31/17 11:26 Sputum - Expectorated Sputum - Final Laboratory WBC 6.1 X10^3/uL (3.6-10.0) 08/06/17 04:00 RBC 4.39 X10^6/uL (4.7-6.0) L 08/06/17 04:00 Hgb 12.3 g/dL (13.5-18.0) L 08/06/17 04:00 Hct 36.2 % (42.0-54.0) L 08/06/17 04:00 MCV 82.5 fL (80.0-100.0) 08/06/17 04:00 MCH 28.0 pg (27.0-34.0) 08/06/17 04:00 MCHC 34.0 g/dL (33.0-35.0) 08/06/17 04:00 RDW 14.2 % (11.6-16.5) 08/06/17 04:00 Plt Count 192 X10^3/uL (150.0-450.0) 08/06/17 04:00 MPV 9.3 fL (7.4-11.0) 08/06/17 04:00 Neut % 60.5 % (42.0-75.0) 08/06/17 04:00 Lymph % 26.4 % (21.0-51.0) 08/06/17 04:00 [place] % 8.4 % (0.0-13.0) 08/06/17 04:00 Eos % 3.4 % (0.9-2.9) H 08/06/17 04:00 Baso % 1.3 % (0.2-1.0) H 08/06/17 04:00 Neut # 3.7 x10^3/uL (2.2-4.8) 08/06/17 04:00 Lymph # 1.6 X10^3/uL (1.3-2.9) 08/06/17 04:00 [place] # 0.5 x10^3/uL (0.3-0.8) 08/06/17 04:00 Eos # 0.2 x10^3/uL (0.0-0.2) 08/06/17 04:00 Baso # 0.1 X10^3/uL (0.0-0.1) 08/06/17 04:00 Absolute Nucleated RBC 0.1 /100WBC 08/06/17 04:00 INR Target Range - 07/30/17 04:00 INR 1.26 (0.8-1.3) 07/30/17 04:00 PTT 56.0 SECONDS (22.9-36.5) H 07/30/17 04:00 PTT Comment - 07/30/17 04:00 D-Dimer 278 ng/mL (0-400) 07/29/17 14:25 Sample Site Right brachial 08/03/17 15:57 ABG pH 7.400 (7.35-7.45) 08/03/17 15:57 ABG pCO2 53.0 mmHg (35.0-45.0) H* 08/03/17 15:57 ABG pO2 39.0 mmHg (80.0-100.0) L* 08/03/17 15:57 ABG HCO3 32.8 mmol/L (22-26) H* 08/03/17 15:57 ABG O2 Saturation 74.0 % (90-100) L* 08/03/17 15:57 ABG Base Excess 6.6 mmol/L (-2.0-2.0) H 08/03/17 15:57 Arian Test Na 08/03/17 15:57 A-a Gradient 44.0 mmHg 08/03/17 15:57 FiO2 21.000 08/03/17 15:57 Blood Gas Comments Leonard well aw 08/03/17 15:57 Sodium 142 mmol/L (136-145) 08/06/17 04:00 Corrected Sodium 142 mmol/L (136-145) 08/06/17 04:00 Potassium 4.1 mmol/L (3.5-5.1) 08/06/17 04:00 Chloride 105 mmol/L (98-107) 08/06/17 04:00 Carbon Dioxide 30.1 mmol/L (21-32) 08/06/17 04:00 BUN 23 mg/dL (7-18) H 08/06/17 04:00 Creatinine 1.40 mg/dL (0.70-1.30) H 08/06/17 04:00 Est GFR (MDRD) Af Amer > 60 (>60) 08/06/17 04:00 Est GFR (MDRD) Non-Af 56 (>60) L 08/06/17 04:00 Glucose 119 mg/dL (65-99) H 08/06/17 04:00 POC Glucose (mg/dL) 190 mg/dL (65-99) H 07/30/17 17:00 Lactic Acid 1.0 mmol/L (0.4-2.0) 07/29/17 14:25 Calcium 8.7 mg/dL (8.5-10.1) 08/06/17 04:00 Corrected Calcium 9.7 mg/dL (8.5-10.1) 08/06/17 04:00 Magnesium 1.1 mg/dL (1.7-2.9) L 07/30/17 04:50 Total Bilirubin 0.40 mg/dL (0.2-1.0) 08/06/17 04:00 AST 31 Units/L (15-37) 08/06/17 04:00 ALT 66 Units/L (12-78) 08/06/17 04:00 Alkaline Phosphatase 400 Units/L (46-116) H 08/06/17 04:00 Creatine Kinase 55 Units/L (39-308) 07/30/17 11:05 CK-MB (CK-2) < 1.0 ng/mL (0-4.0) 07/30/17 11:05 CK/CKMB % Calc 1.8 % (<4) 07/30/17 11:05 Troponin I < 0.02 ng/mL (0-1.5) 07/30/17 11:05 B-Natriuretic Peptide 142 pg/mL (0-79) H 07/29/17 14:25 Total Protein 7.5 g/dL (6.4-8.2) 08/06/17 04:00 Albumin 2.7 g/dL (3.4-5.0) L 08/06/17 04:00 Globulin 4.8 g/dL (2.5-4.5) H 08/06/17 04:00 Albumin/Globulin Ratio 0.6 Ratio (1.1-2.1) L 08/06/17 04:00 Specimen Type Clean catch urine 07/29/17 14:40 Urine Color Yellow (YELLOW) 07/29/17 14:40 Urine Appearance Clear (CLEAR) 07/29/17 14:40 Urine pH 5.0 (5.0 - 8.0) 07/29/17 14:40 Ur Specific [place] 1.010 (1.000-1.030) 07/29/17 14:40 Urine Protein Negative (NEGATIVE) 07/29/17 14:40 Urine Glucose (UA) Negative (NEGATIVE) 07/29/17 14:40 Urine Ketones Negative (NEGATIVE) 07/29/17 14:40 Urine Occult Blood Negative (NEGATIVE) 07/29/17 14:40 Urine Nitrite Negative (NEGATIVE) 07/29/17 14:40 Urine Bilirubin Negative (NEGATIVE) 07/29/17 14:40 Urine Urobilinogen Normal (NORMAL) 07/29/17 14:40 Ur Leukocyte Esterase Negative (NEGATIVE) 07/29/17 14:40 Urine RBC None seen /HPF (NEGATIVE) 07/29/17 14:40 Urine WBC None seen /HPF (NEGATIVE) 07/29/17 14:40 Ur Squamous Epith Cells Negative /HPF (NEGATIVE) 07/29/17 14:40 Urine Bacteria Negative /HPF (NEGATIVE) 07/29/17 14:40 Ur Culture Indicated? No/not indicated 07/29/17 14:40 - Plan (1) Bronchitis Status: Acute Plan: CONTINUE RESP THERAPY, IV ATBX, AM CHEST XRAY. AM LABS, SUPPLEMENTAL O2. BLOOD SUGAR CONTROL, OBTAIN LAST PFT AND CATH REPORT. IV ATBX THERAPY (2) COPD exacerbation Status: Acute (3) GERD (gastroesophageal reflux disease) Status: Acute (4) Atrial fibrillation Status: Chronic Plan: SEE LAST CATH REPORT, CONTIUE TELEMETRY. CURRENT MEDICATION, ANTI-COAG THERAPY (5) Congestive heart failure Status: Chronic (6) Hypertension Status: Chronic Qualifiers: (7) Renal mass, right Status: Acute Plan: SEE MRI REPORT
[2017-08-06] MEDS: ZOCOR TAB 20 MG PO SCH (20:54)
[2017-08-06] MEDS: COREG TAB 12.5 MG PO SCH (20:54)
[2017-08-06] MEDS: TUSSIONEX PENNKINETIC SUSP PO PRN (20:54)
[2017-08-07] MEDS: DUONEB 0.5 MG/3 MG NEB SCH ×6 (01:03→20:34)
[2017-08-07] MEDS: M.S. CONTIN 15 MG (EXTENDED RELEASE) PO SCH ×3 (05:01→21:04)
[2017-08-07 05:14] LABS: BASOPHILS # (AUTO) 0.1 X10^3/uL (0.0-0.1); BASOPHILS % (AUTO) 1.2 % (0.2-1.0); EOSINOPHILS # (AUTO) 0.3 x10^3/uL (0.0-0.2); EOSINOPHILS % (AUTO) 3.5 % (0.9-2.9); HEMATOCRIT 35.2 % (42.0-54.0); HEMOGLOBIN 12.1 g/dL (13.5-18.0); LYMPHOCYTES # (AUTO) 1.8 X10^3/uL (1.3-2.9); LYMPHOCYTES % (AUTO) 24.5 % (21.0-51.0); MEAN CORPUSCULAR HEMOGLOBIN 27.9 pg (27.0-34.0); MEAN CORPUSCULAR HGB CONC 34.3 g/dL (33.0-35.0); MEAN CORPUSCULAR VOLUME 81.4 fL (80.0-100.0); MEAN PLATELET VOLUME 9.6 fL (7.4-11.0); MONOCYTES # (AUTO) 0.6 x10^3/uL (0.3-0.8); MONOCYTES % (AUTO) 8.1 % (0.0-13.0); NEUTROPHILS # (AUTO) 4.7 x10^3/uL (2.2-4.8); NEUTROPHILS % (AUTO) 62.7 % (42.0-75.0); PLATELET COUNT 202 X10^3/uL (150.0-450.0); RED BLOOD COUNT 4.33 X10^6/uL (4.7-6.0); RED CELL DISTRIBUTION WIDTH 14.1 % (11.6-16.5); WHITE BLOOD COUNT 7.5 X10^3/uL (3.6-10.0)
[2017-08-07 05:32] LABS: ALANINE AMINOTRANSFERASE 47 Units/L (12-78); ALBUMIN 2.6 g/dL (3.4-5.0); ALKALINE PHOSPHATASE 322 Units/L (46-116); ASPARTATE AMINO TRANSFERASE 18 Units/L (15-37); BLOOD UREA NITROGEN 24 mg/dL (7-18); CALCIUM 8.4 mg/dL (8.5-10.1); CARBON DIOXIDE 27.2 mmol/L (21-32); CHLORIDE 105 mmol/L (98-107); COR CA(FOR HYPOALB) 9.5 mg/dL (8.5-10.1); COR NA(FOR HYPERGLY) 142 mmol/L (136-145); CREATININE 1.31 mg/dL (0.70-1.30); SODIUM 141 mmol/L (136-145); TOTAL PROTEIN 7.2 g/dL (6.4-8.2); eGFR BLACK RACES > 60 (>60); eGFR NON BLACK RACES > 60 (>60)
[2017-08-07] MEDS: MUCOMYST (RESPIRATORY USE ONLY) NEB SCH ×4 (08:43→20:35)
[2017-08-07] MEDS: PULMICORT NEB TX 0.5 MG NEB SCH ×2 (08:43→20:35)
[2017-08-07] MEDS: LEVAQUIN PREMIX IV 750 MG 750 MG/150 ML BAG IV SCH (09:23)
[2017-08-07] MEDS: ROCEPHIN VIAL 1 GM 1 GM in D5W 50 ML IV 50 ML IV SCH (09:23)
[2017-08-07] MEDS: XARELTO PO SCH (09:24)
[2017-08-07] MEDS: NEURONTIN CAP 100 MG PO SCH ×2 (09:24→21:03)
[2017-08-07] MEDS: ROBITUSSIN DM PO SCH ×4 (09:24→21:09)
[2017-08-07] MEDS: LASIX PO SCH (09:24)
[2017-08-07] MEDS: PriLOSEC PO SCH (09:24)
[2017-08-07] MEDS: NORVASC TAB 10 MG PO SCH (09:24)
[2017-08-07] MEDS: COLACE CAP 100 MG PO SCH ×2 (09:25→21:03)
[2017-08-07] MEDS: DIOVAN TAB 160 MG PO SCH (09:25)
[2017-08-07] MEDS: ASPIRIN EC 81 MG PO SCH (09:25)
[2017-08-07] MEDS: BUSPAR PO SCH ×2 (09:25→21:04)
[2017-08-07] MEDS: MUCINEX DM PO SCH ×2 (09:25→21:05)
[2017-08-07] MEDS: K-DUR TAB 20 MEQ PO SCH (09:25)
[2017-08-07] MEDS: DESVENLAFAXINE SUCCINATE PO SCH (09:26)
[2017-08-07] MEDS: XANAX PO PRN ×2 (09:34→21:05)
--- NOTE | 2017-08-07 11:01 | RAD ---
Examination: Chest, PA and lateral views History: Bronchitis, respiratory distress Comparison reference 08/05/2017 Findings: Stable heart size. Interval appearance of atelectasis in the right lower lung. No consolida tion, pneumothorax or large pleural effusion. Previously noted hilar enlargement is not impressive on the current study. Impression: Interval appearance of subsegmental atelectasis right lower lobe. Reported By:
[2017-08-07] MEDS: COREG TAB 12.5 MG PO SCH (21:04)
[2017-08-07] MEDS: ZOCOR TAB 20 MG PO SCH (21:05)
[2017-08-07] MEDS: TUSSIONEX PENNKINETIC SUSP PO PRN (21:05)
[2017-08-07] MEDS: SOLU-Medrol 40 MG VIAL IVP SCH (21:08)
[2017-08-08] MEDS: DUONEB 0.5 MG/3 MG NEB SCH ×6 (01:13→21:36)
[2017-08-08] MEDS: M.S. CONTIN 15 MG (EXTENDED RELEASE) PO SCH ×3 (01:40→21:03)
[2017-08-08] MEDS: SOLU-Medrol 40 MG VIAL IVP SCH ×2 (05:44→13:44)
[2017-08-08] MEDS: PULMICORT NEB TX 0.5 MG NEB SCH ×2 (08:45→21:36)
[2017-08-08] MEDS: MUCOMYST (RESPIRATORY USE ONLY) NEB SCH ×3 (08:45→16:29)
[2017-08-08] MEDS: ROCEPHIN VIAL 1 GM 1 GM in D5W 50 ML IV 50 ML IV SCH (10:00)
[2017-08-08] MEDS: PriLOSEC PO SCH (10:03)
[2017-08-08] MEDS: COLACE CAP 100 MG PO SCH ×2 (10:03→21:03)
[2017-08-08] MEDS: NEURONTIN CAP 100 MG PO SCH ×2 (10:04→21:03)
[2017-08-08] MEDS: LASIX PO SCH (10:04)
[2017-08-08] MEDS: BUSPAR PO SCH ×2 (10:04→21:03)
[2017-08-08] MEDS: NORVASC TAB 10 MG PO SCH (10:04)
[2017-08-08] MEDS: XARELTO PO SCH (10:04)
[2017-08-08] MEDS: K-DUR TAB 20 MEQ PO SCH (10:05)
[2017-08-08] MEDS: ASPIRIN EC 81 MG PO SCH (10:06)
[2017-08-08] MEDS: ROBITUSSIN DM PO SCH ×5 (10:06→21:04)
[2017-08-08] MEDS: DIOVAN TAB 160 MG PO SCH (10:06)
[2017-08-08] MEDS: LEVAQUIN PREMIX IV 750 MG 750 MG/150 ML BAG IV SCH (10:07)
[2017-08-08] MEDS: MUCINEX DM PO SCH ×2 (10:12→21:02)
[2017-08-08] MEDS ORDERED: NS 250 ML IV 250 ML IV ONE (10:15)
[2017-08-08] MEDS: DESVENLAFAXINE SUCCINATE PO SCH (11:01)
[2017-08-08] MEDS: THEO-DUR TAB 200 MG PO SCH ×2 (17:27→21:23)
[2017-08-08] MEDS: ZOCOR TAB 20 MG PO SCH (21:02)
[2017-08-08] MEDS: XANAX PO PRN (21:02)
[2017-08-08] MEDS: COREG TAB 12.5 MG PO SCH (21:03)
[2017-08-08] MEDS: TUSSIONEX PENNKINETIC SUSP PO PRN (21:08)
--- NOTE | 2017-08-09 00:39 | PCM.PROG ---
Progress Note - Progress Note for Day of Date: 08/09/17 - Subjective Subjective: IS A PATIENT OF . HE WAS ADMITTED FOR COPD EXACERBATION AND BRONCHITIS. FURTHER TESTING REVEALED A 5.1CM MASS WITHIN THE RIGHT KIDNEY MOST LIKELY REPRESENTING RENAL CELL CARCINOMA. HE CONTINUES WITH COMPLAINTS OF MODERATE SHORNTESS OF BREATH, PERSISTENT COUGH, NAUSEA, AND GENERALIZED WEAKNESS TODAY. PATIENT COMPLAINS THAT SYMPTOMS ARE WORSE TODAY THAN YESTERDAY. ON EXAMINATION, HEART IS NORMAL IN RATE AND RHYTHM. LUNGS ARE NOTED WITH WHEEZING, BILATERALLY TO AUSCULTATION. HE IS NOTED TO BE UTILIZING OXYGEN VIA NASAL CANNULA AT 2L/MIN AT THIS TIME. ABDOMEN IS ROUND, SOFT, AND NON -TENDER WITH NORMAL BOWEL SOUNDS NOTED IN ALL QUADRANTS. GOOD MOVEMENT NOTED IN ALL EXTREMITIES. VITAL SIGNS THIS MORNING ARE STABLE. HE REMAINS HEMODYNAMICALLY STABLE TODAY. PATIENT REPORTS THAT HE HAS BEEN RECEIVING SOLU- MEDROL, BUT WISHES FOR IT TO BE DISCONTINUED DO TO COMPLICATIONS FROM IN THE PAST. WE WILL DISCONTINUE AND START CARLOS-DUR 200MG PO BID. HE IS RECEIVING RESPIRATORY TREATMENTS. OTHERWISE, WE WILL CONTINUE WITH CURRENT PLAN OF CARE TODAY. WE PLAN TO FOLLOW UP WITH AM LABS AND CHEST XRAY AND CONTINUE TO MONITOR PATIENT. - Past Medical Family Social History Past Med/Fam/Surg Hx: No changes since H&P Allergies: Allergies clindamycin Allergy (Verified 03/07/17 17:50) methylprednisolone [From Solu-Medrol] Allergy (Verified 03/07/17 17:50) pregabalin [From Lyrica] Allergy (Verified 03/07/17 17:50) - Review of Systems ROS: No change since H&P - Vital Signs and I&O's Vital Signs: Temperature 98.3 F Pulse Rate [Right Brachial] 68 Pulse Rate [Left Brachial] 70 Pulse Rate 70 Respiratory Rate 20 Blood Pressure [Right Arm] 146/73 Blood Pressure 116/64 O2 Sat by Pulse Oximetry 93 Intake and Output: Intake & Output 08/06/17 08/07/17 08/08/17 08/09/17 11:59 11:59 11:59 11:59 Intake Total 7211 965 3337 1050 Balance 0471 102 7782 1050 - Physical Exam Oriented: Normal Eyes: Normal Ear: Normal Nose: Normal Throat: Dry Respiratory: Right, Left, Wheezes, Rhonchi Cardiovascular: Normal : Normal Tenderness: Normal Skin: Decreased Turgur Musculoskeletal: Leg, Back:Lumbar, Deformity (RLE), Sensory Deficit Psychiatric: Anxiety, Depression Speech Pattern: Clear, Appropriate - Laboratory and Diagnostics Result Diagrams: 08/07/17 03:55 08/07/17 03:55 Labs: 07/29/17 14:27 Blood Blood Culture - Final 07/29/17 14:25 Blood Blood Culture - Final 07/31/17 11:26 Sputum - Expectorated Sputum Sputum Culture - Final 07/31/17 11:26 Sputum - Expectorated Sputum - Final Laboratory WBC 7.5 X10^3/uL (3.6-10.0) 08/07/17 03:55 RBC 4.33 X10^6/uL (4.7-6.0) L 08/07/17 03:55 Hgb 12.1 g/dL (13.5-18.0) L 08/07/17 03:55 Hct 35.2 % (42.0-54.0) L 08/07/17 03:55 MCV 81.4 fL (80.0-100.0) 08/07/17 03:55 MCH 27.9 pg (27.0-34.0) 08/07/17 03:55 MCHC 34.3 g/dL (33.0-35.0) 08/07/17 03:55 RDW 14.1 % (11.6-16.5) 08/07/17 03:55 Plt Count 202 X10^3/uL (150.0-450.0) 08/07/17 03:55 MPV 9.6 fL (7.4-11.0) 08/07/17 03:55 Neut % 62.7 % (42.0-75.0) 08/07/17 03:55 Lymph % 24.5 % (21.0-51.0) 08/07/17 03:55 [place] % 8.1 % (0.0-13.0) 08/07/17 03:55 Eos % 3.5 % (0.9-2.9) H 08/07/17 03:55 Baso % 1.2 % (0.2-1.0) H 08/07/17 03:55 Neut # 4.7 x10^3/uL (2.2-4.8) 08/07/17 03:55 Lymph # 1.8 X10^3/uL (1.3-2.9) 08/07/17 03:55 [place] # 0.6 x10^3/uL (0.3-0.8) 08/07/17 03:55 Eos # 0.3 x10^3/uL (0.0-0.2) H 08/07/17 03:55 Baso # 0.1 X10^3/uL (0.0-0.1) 08/07/17 03:55 Absolute Nucleated RBC 0.1 /100WBC 08/07/17 03:55 INR Target Range - 07/30/17 04:00 INR 1.26 (0.8-1.3) 07/30/17 04:00 PTT 56.0 SECONDS (22.9-36.5) H 07/30/17 04:00 PTT Comment - 07/30/17 04:00 D-Dimer 278 ng/mL (0-400) 07/29/17 14:25 Sample Site Right brachial 08/03/17 15:57 ABG pH 7.400 (7.35-7.45) 08/03/17 15:57 ABG pCO2 53.0 mmHg (35.0-45.0) H* 08/03/17 15:57 ABG pO2 39.0 mmHg (80.0-100.0) L* 08/03/17 15:57 ABG HCO3 32.8 mmol/L (22-26) H* 08/03/17 15:57 ABG O2 Saturation 74.0 % (90-100) L* 08/03/17 15:57 ABG Base Excess 6.6 mmol/L (-2.0-2.0) H 08/03/17 15:57 Arian Test Na 08/03/17 15:57 A-a Gradient 44.0 mmHg 08/03/17 15:57 FiO2 21.000 08/03/17 15:57 Blood Gas Comments Leonard well aw 08/03/17 15:57 Sodium 141 mmol/L (136-145) 08/07/17 03:55 Corrected Sodium 142 mmol/L (136-145) 08/07/17 03:55 Potassium 3.9 mmol/L (3.5-5.1) 08/07/17 03:55 Chloride 105 mmol/L (98-107) 08/07/17 03:55 Carbon Dioxide 27.2 mmol/L (21-32) 08/07/17 03:55 BUN 24 mg/dL (7-18) H 08/07/17 03:55 Creatinine 1.31 mg/dL (0.70-1.30) H 08/07/17 03:55 Est GFR (MDRD) Af Amer > 60 (>60) 08/07/17 03:55 Est GFR (MDRD) Non-Af > 60 (>60) 08/07/17 03:55 Glucose 146 mg/dL (65-99) H 08/07/17 03:55 POC Glucose (mg/dL) 190 mg/dL (65-99) H 07/30/17 17:00 Lactic Acid 1.0 mmol/L (0.4-2.0) 07/29/17 14:25 Calcium 8.4 mg/dL (8.5-10.1) L 08/07/17 03:55 Corrected Calcium 9.5 mg/dL (8.5-10.1) 08/07/17 03:55 Magnesium 1.1 mg/dL (1.7-2.9) L 07/30/17 04:50 Total Bilirubin 0.30 mg/dL (0.2-1.0) 08/07/17 03:55 AST 18 Units/L (15-37) 08/07/17 03:55 ALT 47 Units/L (12-78) 08/07/17 03:55 Alkaline Phosphatase 322 Units/L (46-116) H 08/07/17 03:55 Creatine Kinase 55 Units/L (39-308) 07/30/17 11:05 CK-MB (CK-2) < 1.0 ng/mL (0-4.0) 07/30/17 11:05 CK/CKMB % Calc 1.8 % (<4) 07/30/17 11:05 Troponin I < 0.02 ng/mL (0-1.5) 07/30/17 11:05 B-Natriuretic Peptide 142 pg/mL (0-79) H 07/29/17 14:25 Total Protein 7.2 g/dL (6.4-8.2) 08/07/17 03:55 Albumin 2.6 g/dL (3.4-5.0) L 08/07/17 03:55 Globulin 4.6 g/dL (2.5-4.5) H 08/07/17 03:55 Albumin/Globulin Ratio 0.6 Ratio (1.1-2.1) L 08/07/17 03:55 Specimen Type Clean catch urine 07/29/17 14:40 Urine Color Yellow (YELLOW) 07/29/17 14:40 Urine Appearance Clear (CLEAR) 07/29/17 14:40 Urine pH 5.0 (5.0 - 8.0) 07/29/17 14:40 Ur Specific [place] 1.010 (1.000-1.030) 07/29/17 14:40 Urine Protein Negative (NEGATIVE) 07/29/17 14:40 Urine Glucose (UA) Negative (NEGATIVE) 07/29/17 14:40 Urine Ketones Negative (NEGATIVE) 07/29/17 14:40 Urine Occult Blood Negative (NEGATIVE) 07/29/17 14:40 Urine Nitrite Negative (NEGATIVE) 07/29/17 14:40 Urine Bilirubin Negative (NEGATIVE) 07/29/17 14:40 Urine Urobilinogen Normal (NORMAL) 07/29/17 14:40 Ur Leukocyte Esterase Negative (NEGATIVE) 07/29/17 14:40 Urine RBC None seen /HPF (NEGATIVE) 07/29/17 14:40 Urine WBC None seen /HPF (NEGATIVE) 07/29/17 14:40 Ur Squamous Epith Cells Negative /HPF (NEGATIVE) 07/29/17 14:40 Urine Bacteria Negative /HPF (NEGATIVE) 07/29/17 14:40 Ur Culture Indicated? No/not indicated 07/29/17 14:40 - Plan (1) Bronchitis Status: Acute Plan: CONTINUE RESP THERAPY, IV ATBX, AM CHEST XRAY. AM LABS, SUPPLEMENTAL O2. BLOOD SUGAR CONTROL, OBTAIN LAST PFT AND CATH REPORT. IV ATBX THERAPY (2) COPD exacerbation Status: Acute Plan: CONTINUE RESP THERAPY, IV ATBX, AM CHEST XRAY. AM LABS, SUPPLEMENTAL O2 (3) Renal mass, right Status: Acute Plan: SEE MRI REPORT, CONTINUE TO MONITOR
[2017-08-09] MEDS: DUONEB 0.5 MG/3 MG NEB SCH ×6 (01:24→21:25)
[2017-08-09 04:41] LABS: BASOPHILS # (AUTO) 0.1 X10^3/uL (0.0-0.1); BASOPHILS % (AUTO) 1.3 % (0.2-1.0); EOSINOPHILS # (AUTO) 0.2 x10^3/uL (0.0-0.2); EOSINOPHILS % (AUTO) 2.8 % (0.9-2.9); HEMATOCRIT 35.7 % (42.0-54.0); HEMOGLOBIN 12.2 g/dL (13.5-18.0); LYMPHOCYTES # (AUTO) 1.8 X10^3/uL (1.3-2.9); LYMPHOCYTES % (AUTO) 27.7 % (21.0-51.0); MEAN CORPUSCULAR HEMOGLOBIN 27.9 pg (27.0-34.0); MEAN CORPUSCULAR HGB CONC 34.3 g/dL (33.0-35.0); MEAN CORPUSCULAR VOLUME 81.2 fL (80.0-100.0); MEAN PLATELET VOLUME 9.5 fL (7.4-11.0); MONOCYTES # (AUTO) 0.7 x10^3/uL (0.3-0.8); MONOCYTES % (AUTO) 10.3 % (0.0-13.0); NEUTROPHILS # (AUTO) 3.8 x10^3/uL (2.2-4.8); NEUTROPHILS % (AUTO) 57.9 % (42.0-75.0); PLATELET COUNT 185 X10^3/uL (150.0-450.0); RED BLOOD COUNT 4.39 X10^6/uL (4.7-6.0); RED CELL DISTRIBUTION WIDTH 13.8 % (11.6-16.5); WHITE BLOOD COUNT 6.5 X10^3/uL (3.6-10.0)
[2017-08-09 05:01] LABS: ALANINE AMINOTRANSFERASE 34 Units/L (12-78); ALBUMIN 2.6 g/dL (3.4-5.0); ALKALINE PHOSPHATASE 252 Units/L (46-116); ASPARTATE AMINO TRANSFERASE 14 Units/L (15-37); BLOOD UREA NITROGEN 22 mg/dL (7-18); CALCIUM 8.5 mg/dL (8.5-10.1); CARBON DIOXIDE 28.9 mmol/L (21-32); CHLORIDE 105 mmol/L (98-107); COR CA(FOR HYPOALB) 9.6 mg/dL (8.5-10.1); COR NA(FOR HYPERGLY) 142 mmol/L (136-145); CREATININE 1.35 mg/dL (0.70-1.30); SODIUM 141 mmol/L (136-145); eGFR BLACK RACES > 60 (>60); eGFR NON BLACK RACES 58 (>60)
[2017-08-09] MEDS: M.S. CONTIN 15 MG (EXTENDED RELEASE) PO SCH ×3 (05:23→21:00)
--- NOTE | 2017-08-09 07:19 | RAD ---
Examination: Portable AP chest History: SOB Comparison reference 08/07/2017 Findings: Continued normal heart size. Increasing areas of discoid atelectasis in both bases. No cons olidation, large pleural effusion or pneumothorax. Impression: Increasing subsegmental atelectasis in the lower lungs. No change otherwise. Reported By:
[2017-08-09] MEDS: PULMICORT NEB TX 0.5 MG NEB SCH ×2 (08:58→21:26)
[2017-08-09] MEDS: XARELTO PO SCH (09:36)
[2017-08-09] MEDS: PriLOSEC PO SCH (09:36)
[2017-08-09] MEDS: K-DUR TAB 20 MEQ PO SCH (09:36)
[2017-08-09] MEDS: NEURONTIN CAP 100 MG PO SCH ×2 (09:37→20:58)
[2017-08-09] MEDS: COLACE CAP 100 MG PO SCH ×2 (09:37→20:58)
[2017-08-09] MEDS: DIOVAN TAB 160 MG PO SCH (09:37)
[2017-08-09] MEDS: LASIX PO SCH (09:38)
[2017-08-09] MEDS: NORVASC TAB 10 MG PO SCH (09:38)
[2017-08-09] MEDS: ASPIRIN EC 81 MG PO SCH (09:38)
[2017-08-09] MEDS: BUSPAR PO SCH ×2 (09:38→21:00)
[2017-08-09] MEDS: MUCINEX DM PO SCH ×2 (09:38→20:59)
[2017-08-09] MEDS: LEVAQUIN PREMIX IV 750 MG 750 MG/150 ML BAG IV SCH (09:38)
[2017-08-09] MEDS: ROBITUSSIN DM PO SCH ×4 (09:39→21:00)
[2017-08-09] MEDS: DESVENLAFAXINE SUCCINATE PO SCH (09:39)
[2017-08-09] MEDS: ROCEPHIN VIAL 1 GM 1 GM in D5W 50 ML IV 50 ML IV SCH (09:40)
[2017-08-09] MEDS: XANAX PO PRN ×2 (09:45→21:00)
[2017-08-09] MEDS: THEO-DUR TAB 200 MG PO SCH (09:56)
[2017-08-09] MEDS: THEO-DUR TAB 300 MG PO SCH ×2 (13:11→20:59)
[2017-08-09] MEDS: TUSSIONEX PENNKINETIC SUSP PO PRN (20:58)
[2017-08-09] MEDS: COREG TAB 12.5 MG PO SCH (20:59)
[2017-08-09] MEDS: ZOCOR TAB 20 MG PO SCH (20:59)
[2017-08-09] MEDS: MILK OF MAGNESIA PO PRN (20:59)
--- NOTE | 2017-08-09 23:56 | PCM.PROG ---
Progress Note - Progress Note for Day of Date: 08/09/17 - Subjective Subjective: IS A PATIENT OF . HE WAS ADMITTED FOR COPD EXACERBATION AND BRONCHITIS. FURTHER TESTING REVEALED A 5.1CM MASS WITHIN THE RIGHT KIDNEY MOST LIKELY REPRESENTING RENAL CELL CARCINOMA. HE CONTINUES WITH COMPLAINTS OF SHORTNESS OF BREATH, BUT REPORTS FEELING BETTER TODAY THAN HE HAS SINCE ADMISSION. ON EXAMINATION, HEART IS NORMAL IN RATE AND RHYTHM. LUNGS ARE NOTED WITH WHEEZING, BILATERALLY TO AUSCULTATION. HE IS NOTED TO BE UTILIZING OXYGEN VIA NASAL CANNULA AT 2L/MIN AT THIS TIME. ABDOMEN IS ROUND, SOFT, AND NON -TENDER WITH NORMAL BOWEL SOUNDS NOTED IN ALL QUADRANTS. GOOD MOVEMENT NOTED IN ALL EXTREMITIES. VITAL SIGNS THIS MORNING ARE STABLE. HE REMAINS HEMODYNAMICALLY STABLE TODAY. TODAYS CHEST XRAY REPORTS INCREASING SUBSEGMENTAL ATELECTASIS IN THE LOWER LUNGS. NO CHANGE OTHERWISE. TODAY, WE WILL INCREASE CARLOS-DUR TO 300MG BID AND CHECK THEOPHYLLINE LEVELS IN THE MORNING. HE IS RECEIVING RESPIRATORY TREATMENTS. OTHERWISE, WE WILL CONTINUE WITH CURRENT PLAN OF CARE TODAY. WE PLAN TO FOLLOW UP WITH AM LABS AND CHEST XRAY AND CONTINUE TO MONITOR PATIENT. - Past Medical Family Social History Past Med/Fam/Surg Hx: No changes since H&P Allergies: Allergies clindamycin Allergy (Verified 03/07/17 17:50) methylprednisolone [From Solu-Medrol] Allergy (Verified 03/07/17 17:50) pregabalin [From Lyrica] Allergy (Verified 03/07/17 17:50) - Review of Systems ROS: No change since H&P - Vital Signs and I&O's Vital Signs: Temperature 98.1 F Pulse Rate [Right Brachial] 72 Pulse Rate [Left Brachial] 70 Pulse Rate 61 Respiratory Rate 20 Blood Pressure [Right Arm] 114/57 Blood Pressure 116/64 O2 Sat by Pulse Oximetry 93 Intake and Output: Intake & Output 08/07/17 08/08/17 08/09/17 08/10/17 11:59 11:59 11:59 11:59 Intake Total 960 1250 1500 1200 Balance 960 1250 1500 1200 - Physical Exam Oriented: Normal Eyes: Normal Ear: Normal Nose: Normal Throat: Dry Respiratory: Right, Left, Wheezes, Rhonchi Cardiovascular: Normal : Normal Auscultation: Bowel Sounds: Normal Palpation: Normal Tenderness: Normal Skin: Decreased Turgur Musculoskeletal: Leg, Back:Lumbar, Deformity (RLE), Sensory Deficit Psychiatric: Anxiety, Depression Speech Pattern: Clear, Appropriate - Laboratory and Diagnostics Result Diagrams: 08/09/17 03:35 08/09/17 03:35 Labs: 07/29/17 14:27 Blood Blood Culture - Final 07/29/17 14:25 Blood Blood Culture - Final 07/31/17 11:26 Sputum - Expectorated Sputum Sputum Culture - Final 07/31/17 11:26 Sputum - Expectorated Sputum - Final Laboratory WBC 6.5 X10^3/uL (3.6-10.0) 08/09/17 03:35 RBC 4.39 X10^6/uL (4.7-6.0) L 08/09/17 03:35 Hgb 12.2 g/dL (13.5-18.0) L 08/09/17 03:35 Hct 35.7 % (42.0-54.0) L 08/09/17 03:35 MCV 81.2 fL (80.0-100.0) 08/09/17 03:35 MCH 27.9 pg (27.0-34.0) 08/09/17 03:35 MCHC 34.3 g/dL (33.0-35.0) 08/09/17 03:35 RDW 13.8 % (11.6-16.5) 08/09/17 03:35 Plt Count 185 X10^3/uL (150.0-450.0) 08/09/17 03:35 MPV 9.5 fL (7.4-11.0) 08/09/17 03:35 Neut % 57.9 % (42.0-75.0) 08/09/17 03:35 Lymph % 27.7 % (21.0-51.0) 08/09/17 03:35 [place] % 10.3 % (0.0-13.0) 08/09/17 03:35 Eos % 2.8 % (0.9-2.9) 08/09/17 03:35 Baso % 1.3 % (0.2-1.0) H 08/09/17 03:35 Neut # 3.8 x10^3/uL (2.2-4.8) 08/09/17 03:35 Lymph # 1.8 X10^3/uL (1.3-2.9) 08/09/17 03:35 [place] # 0.7 x10^3/uL (0.3-0.8) 08/09/17 03:35 Eos # 0.2 x10^3/uL (0.0-0.2) 08/09/17 03:35 Baso # 0.1 X10^3/uL (0.0-0.1) 08/09/17 03:35 Absolute Nucleated RBC 0.1 /100WBC 08/09/17 03:35 INR Target Range - 07/30/17 04:00 INR 1.26 (0.8-1.3) 07/30/17 04:00 PTT 56.0 SECONDS (22.9-36.5) H 07/30/17 04:00 PTT Comment - 07/30/17 04:00 D-Dimer 278 ng/mL (0-400) 07/29/17 14:25 Sample Site Right brachial 08/03/17 15:57 ABG pH 7.400 (7.35-7.45) 08/03/17 15:57 ABG pCO2 53.0 mmHg (35.0-45.0) H* 08/03/17 15:57 ABG pO2 39.0 mmHg (80.0-100.0) L* 08/03/17 15:57 ABG HCO3 32.8 mmol/L (22-26) H* 08/03/17 15:57 ABG O2 Saturation 74.0 % (90-100) L* 08/03/17 15:57 ABG Base Excess 6.6 mmol/L (-2.0-2.0) H 08/03/17 15:57 Arian Test Na 08/03/17 15:57 A-a Gradient 44.0 mmHg 08/03/17 15:57 FiO2 21.000 08/03/17 15:57 Blood Gas Comments [place] well aw 08/03/17 15:57 Sodium 141 mmol/L (136-145) 08/09/17 03:35 Corrected Sodium 142 mmol/L (136-145) 08/09/17 03:35 Potassium 3.8 mmol/L (3.5-5.1) 08/09/17 03:35 Chloride 105 mmol/L (98-107) 08/09/17 03:35 Carbon Dioxide 28.9 mmol/L (21-32) 08/09/17 03:35 BUN 22 mg/dL (7-18) H 08/09/17 03:35 Creatinine 1.35 mg/dL (0.70-1.30) H 08/09/17 03:35 Est GFR (MDRD) Af Amer > 60 (>60) 08/09/17 03:35 Est GFR (MDRD) Non-Af 58 (>60) L 08/09/17 03:35 Glucose 142 mg/dL (65-99) H 08/09/17 03:35 POC Glucose (mg/dL) 190 mg/dL (65-99) H 07/30/17 17:00 Lactic Acid 1.0 mmol/L (0.4-2.0) 07/29/17 14:25 Calcium 8.5 mg/dL (8.5-10.1) 08/09/17 03:35 Corrected Calcium 9.6 mg/dL (8.5-10.1) 08/09/17 03:35 Magnesium 1.1 mg/dL (1.7-2.9) L 07/30/17 04:50 Total Bilirubin 0.40 mg/dL (0.2-1.0) 08/09/17 03:35 AST 14 Units/L (15-37) L 08/09/17 03:35 ALT 34 Units/L (12-78) 08/09/17 03:35 Alkaline Phosphatase 252 Units/L (46-116) H 08/09/17 03:35 Creatine Kinase 55 Units/L (39-308) 07/30/17 11:05 CK-MB (CK-2) < 1.0 ng/mL (0-4.0) 07/30/17 11:05 CK/CKMB % Calc 1.8 % (<4) 07/30/17 11:05 Troponin I < 0.02 ng/mL (0-1.5) 07/30/17 11:05 B-Natriuretic Peptide 142 pg/mL (0-79) H 07/29/17 14:25 Total Protein 7.0 g/dL (6.4-8.2) 08/09/17 03:35 Albumin 2.6 g/dL (3.4-5.0) L 08/09/17 03:35 Globulin 4.4 g/dL (2.5-4.5) 08/09/17 03:35 Albumin/Globulin Ratio 0.6 Ratio (1.1-2.1) L 08/09/17 03:35 Specimen Type Clean catch urine 07/29/17 14:40 Urine Color Yellow (YELLOW) 07/29/17 14:40 Urine Appearance Clear (CLEAR) 07/29/17 14:40 Urine pH 5.0 (5.0 - 8.0) 07/29/17 14:40 Ur Specific [place] 1.010 (1.000-1.030) 07/29/17 14:40 Urine Protein Negative (NEGATIVE) 07/29/17 14:40 Urine Glucose (UA) Negative (NEGATIVE) 07/29/17 14:40 Urine Ketones Negative (NEGATIVE) 07/29/17 14:40 Urine Occult Blood Negative (NEGATIVE) 07/29/17 14:40 Urine Nitrite Negative (NEGATIVE) 07/29/17 14:40 Urine Bilirubin Negative (NEGATIVE) 07/29/17 14:40 Urine Urobilinogen Normal (NORMAL) 07/29/17 14:40 Ur Leukocyte Esterase Negative (NEGATIVE) 07/29/17 14:40 Urine RBC None seen /HPF (NEGATIVE) 07/29/17 14:40 Urine WBC None seen /HPF (NEGATIVE) 07/29/17 14:40 Ur Squamous Epith Cells Negative /HPF (NEGATIVE) 07/29/17 14:40 Urine Bacteria Negative /HPF (NEGATIVE) 07/29/17 14:40 Ur Culture Indicated? No/not indicated 07/29/17 14:40 - Plan (1) Bronchitis Status: Acute Plan: CONTINUE RESP THERAPY, IV ATBX, AM CHEST XRAY. AM LABS, SUPPLEMENTAL O2, IV ATBX THERAPY (2) COPD exacerbation Status: Acute Plan: CARLOS-DUR 300MG PO BID, CONTINUE RESP THERAPY, IV ATBX, AM CHEST XRAY. AM LABS, SUPPLEMENTAL O2 (3) Renal mass, right Status: Acute Plan: SEE MRI REPORT, CONTINUE TO MONITOR
[2017-08-10] MEDS: DUONEB 0.5 MG/3 MG NEB SCH ×6 (01:13→20:08)
[2017-08-10 05:14] LABS: BASOPHILS # (AUTO) 0.1 X10^3/uL (0.0-0.1); BASOPHILS % (AUTO) 1.2 % (0.2-1.0); EOSINOPHILS # (AUTO) 0.2 x10^3/uL (0.0-0.2); EOSINOPHILS % (AUTO) 2.4 % (0.9-2.9); HEMATOCRIT 35.4 % (42.0-54.0); LYMPHOCYTES # (AUTO) 1.7 X10^3/uL (1.3-2.9); MEAN CORPUSCULAR HEMOGLOBIN 27.8 pg (27.0-34.0); MEAN CORPUSCULAR VOLUME 81.9 fL (80.0-100.0); MEAN PLATELET VOLUME 9.6 fL (7.4-11.0); MONOCYTES # (AUTO) 0.6 x10^3/uL (0.3-0.8); MONOCYTES % (AUTO) 8.9 % (0.0-13.0); NEUTROPHILS # (AUTO) 4.4 x10^3/uL (2.2-4.8); NEUTROPHILS % (AUTO) 63.5 % (42.0-75.0); PLATELET COUNT 180 X10^3/uL (150.0-450.0); RED BLOOD COUNT 4.33 X10^6/uL (4.7-6.0); RED CELL DISTRIBUTION WIDTH 14.1 % (11.6-16.5)
[2017-08-10 05:30] LABS: ALANINE AMINOTRANSFERASE 71 Units/L (12-78); ALBUMIN 2.8 g/dL (3.4-5.0); ALKALINE PHOSPHATASE 403 Units/L (46-116); ASPARTATE AMINO TRANSFERASE 55 Units/L (15-37); BLOOD UREA NITROGEN 25 mg/dL (7-18); CALCIUM 8.7 mg/dL (8.5-10.1); CHLORIDE 104 mmol/L (98-107); COR CA(FOR HYPOALB) 9.7 mg/dL (8.5-10.1); COR NA(FOR HYPERGLY) 143 mmol/L (136-145); CREATININE 1.38 mg/dL (0.70-1.30); SODIUM 141 mmol/L (136-145); TOTAL PROTEIN 7.1 g/dL (6.4-8.2); eGFR BLACK RACES > 60 (>60); eGFR NON BLACK RACES 57 (>60)
[2017-08-10] MEDS: M.S. CONTIN 15 MG (EXTENDED RELEASE) PO SCH ×3 (05:36→21:02)
--- NOTE | 2017-08-10 06:16 | RAD ---
Chest AP portable Indication: Dyspnea Comparison: 08/09/2017 Findings: There is no pneumothorax, or dense consolidation. Heart size is enlarged and increased inte rstitial markings. Trace effusions may be present. Impression: Cardiomegaly and borderline edema suggesting CHF. Underlying infiltrate not completely ex cluded. Reported By:
[2017-08-10] MEDS: PULMICORT NEB TX 0.5 MG NEB SCH ×2 (09:33→20:08)
[2017-08-10] MEDS: ROCEPHIN VIAL 1 GM 1 GM in D5W 50 ML IV 50 ML IV SCH (09:35)
[2017-08-10] MEDS: NORVASC TAB 10 MG PO SCH (09:37)
[2017-08-10] MEDS: NEURONTIN CAP 100 MG PO SCH ×2 (09:37→20:54)
[2017-08-10] MEDS: THEO-DUR TAB 300 MG PO SCH ×2 (09:37→20:54)
[2017-08-10] MEDS: K-DUR TAB 20 MEQ PO SCH (09:37)
[2017-08-10] MEDS: DIOVAN TAB 160 MG PO SCH (09:37)
[2017-08-10] MEDS: BUSPAR PO SCH ×2 (09:37→20:55)
[2017-08-10] MEDS: ROBITUSSIN DM PO SCH ×4 (09:38→21:06)
[2017-08-10] MEDS: MUCINEX DM PO SCH ×2 (09:38→20:54)
[2017-08-10] MEDS: XARELTO PO SCH (09:38)
[2017-08-10] MEDS: COLACE CAP 100 MG PO SCH ×2 (09:38→20:55)
[2017-08-10] MEDS: LASIX PO SCH (09:38)
[2017-08-10] MEDS: PriLOSEC PO SCH (09:38)
[2017-08-10] MEDS: ASPIRIN EC 81 MG PO SCH (09:39)
[2017-08-10 09:41] LABS: ABG ALLEN TEST POS; ABG HCO3 31.4 mmol/L (22-26)
[2017-08-10] MEDS: LEVAQUIN PREMIX IV 750 MG 750 MG/150 ML BAG IV SCH (10:29)
[2017-08-10] MEDS: LASIX IVP SCH ×2 (10:29→20:57)
[2017-08-10] MEDS: DESVENLAFAXINE SUCCINATE PO SCH (10:29)
--- NOTE | 2017-08-10 13:05 | PCM.PROG ---
Progress Note - Progress Note for Day of Date: 08/10/17 - Subjective Subjective: WAS ADMITTED FOR COPD EXACERBATION AND BRONCHITIS. FURTHER TESTING REVEALED A 5.1CM MASS WITHIN THE RIGHT KIDNEY MOST LIKELY REPRESENTING RENAL CELL CARCINOMA. HE CONTINUES WITH COMPLAINTS OF SHORTNESS OF BREATH, BUT REPORTS FEELING BETTER TODAY THAN HE HAS SINCE ADMISSION. ON EXAMINATION, HEART IS NORMAL IN RATE AND RHYTHM. LUNGS ARE NOTED WITH WHEEZING, BILATERALLY TO AUSCULTATION. HE IS NOTED TO BE UTILIZING OXYGEN VIA NASAL CANNULA AT 2L/MIN AT THIS TIME. ABDOMEN IS ROUND, SOFT, AND NON-TENDER WITH NORMAL BOWEL SOUNDS NOTED IN ALL QUADRANTS. GOOD MOVEMENT NOTED IN ALL EXTREMITIES. VITAL SIGNS THIS MORNING ARE STABLE. HE REMAINS HEMODYNAMICALLY STABLE TODAY. ABG TODAY ON ROOM AIR. NO CHANGE OTHERWISE. HE IS RECEIVING RESPIRATORY TREATMENTS. OTHERWISE, WE WILL CONTINUE WITH CURRENT PLAN OF CARE TODAY. WE PLAN TO FOLLOW UP WITH AM LABS AND CHEST XRAY AND CONTINUE TO MONITOR PATIENT. - Past Medical Family Social History Past Med/Fam/Surg Hx: No changes since H&P Allergies: Allergies clindamycin Allergy (Verified 03/07/17 17:50) methylprednisolone [From Solu-Medrol] Allergy (Verified 03/07/17 17:50) pregabalin [From Lyrica] Allergy (Verified 03/07/17 17:50) - Review of Systems ROS: No change since H&P - Vital Signs and I&O's Vital Signs: Temperature 98 F Pulse Rate [Right Brachial] 79 Pulse Rate [Left Brachial] 70 Pulse Rate 61 Respiratory Rate 20 Blood Pressure [Right Arm] 147/70 Blood Pressure 116/64 O2 Sat by Pulse Oximetry 91 Intake and Output: Intake & Output 08/08/17 08/09/17 08/10/17 08/11/17 11:59 11:59 11:59 11:59 Intake Total 1250 1500 1440 Balance 1250 1500 1440 - Physical Exam Oriented: Normal Eyes: Normal Ear: Normal Nose: Normal Throat: Dry Respiratory: Right, Left, Wheezes, Rhonchi Cardiovascular: Normal : Normal Auscultation: Bowel Sounds: Normal Tenderness: Normal Skin: Decreased Turgur Musculoskeletal: Leg, Back:Lumbar, Deformity (RLE), Sensory Deficit Psychiatric: Anxiety, Depression Speech Pattern: Clear, Appropriate - Laboratory and Diagnostics Result Diagrams: 08/10/17 03:35 08/10/17 03:35 Labs: 07/29/17 14:27 Blood Blood Culture - Final 07/29/17 14:25 Blood Blood Culture - Final 07/31/17 11:26 Sputum - Expectorated Sputum Sputum Culture - Final 07/31/17 11:26 Sputum - Expectorated Sputum - Final Laboratory WBC 7.0 X10^3/uL (3.6-10.0) 08/10/17 03:35 RBC 4.33 X10^6/uL (4.7-6.0) L 08/10/17 03:35 Hgb 12.0 g/dL (13.5-18.0) L 08/10/17 03:35 Hct 35.4 % (42.0-54.0) L 08/10/17 03:35 MCV 81.9 fL (80.0-100.0) 08/10/17 03:35 MCH 27.8 pg (27.0-34.0) 08/10/17 03:35 MCHC 34.0 g/dL (33.0-35.0) 08/10/17 03:35 RDW 14.1 % (11.6-16.5) 08/10/17 03:35 Plt Count 180 X10^3/uL (150.0-450.0) 08/10/17 03:35 MPV 9.6 fL (7.4-11.0) 08/10/17 03:35 Neut % 63.5 % (42.0-75.0) 08/10/17 03:35 Lymph % 24.0 % (21.0-51.0) 08/10/17 03:35 [place] % 8.9 % (0.0-13.0) 08/10/17 03:35 Eos % 2.4 % (0.9-2.9) 08/10/17 03:35 Baso % 1.2 % (0.2-1.0) H 08/10/17 03:35 Neut # 4.4 x10^3/uL (2.2-4.8) 08/10/17 03:35 Lymph # 1.7 X10^3/uL (1.3-2.9) 08/10/17 03:35 [place] # 0.6 x10^3/uL (0.3-0.8) 08/10/17 03:35 Eos # 0.2 x10^3/uL (0.0-0.2) 08/10/17 03:35 Baso # 0.1 X10^3/uL (0.0-0.1) 08/10/17 03:35 Absolute Nucleated RBC 0.0 /100WBC 08/10/17 03:35 INR Target Range - 07/30/17 04:00 INR 1.26 (0.8-1.3) 07/30/17 04:00 PTT 56.0 SECONDS (22.9-36.5) H 07/30/17 04:00 PTT Comment - 07/30/17 04:00 D-Dimer 278 ng/mL (0-400) 07/29/17 14:25 Sample Site Rbra 08/10/17 09:35 ABG pH 7.380 (7.35-7.45) 08/10/17 09:35 ABG pCO2 53.0 mmHg (35.0-45.0) H* 08/10/17 09:35 ABG pO2 31.0 mmHg (80.0-100.0) L* 08/10/17 09:35 ABG HCO3 31.4 mmol/L (22-26) H* 08/10/17 09:35 ABG O2 Saturation 58.0 % (90-100) L* 08/10/17 09:35 ABG Base Excess 5.0 mmol/L (-2.0-2.0) H 08/10/17 09:35 Arian Test Pos 08/10/17 09:35 A-a Gradient 52.0 mmHg 08/10/17 09:35 FiO2 21.000 08/10/17 09:35 Blood Gas Comments Pt yessy well. cdn 08/10/17 09:35 Sodium 141 mmol/L (136-145) 08/10/17 03:35 Corrected Sodium 143 mmol/L (136-145) 08/10/17 03:35 Potassium 4.1 mmol/L (3.5-5.1) 08/10/17 03:35 Chloride 104 mmol/L (98-107) 08/10/17 03:35 Carbon Dioxide 29.0 mmol/L (21-32) 08/10/17 03:35 BUN 25 mg/dL (7-18) H 08/10/17 03:35 Creatinine 1.38 mg/dL (0.70-1.30) H 08/10/17 03:35 Est GFR (MDRD) Af Amer > 60 (>60) 08/10/17 03:35 Est GFR (MDRD) Non-Af 57 (>60) L 08/10/17 03:35 Glucose 166 mg/dL (65-99) H 08/10/17 03:35 POC Glucose (mg/dL) 190 mg/dL (65-99) H 07/30/17 17:00 Lactic Acid 1.0 mmol/L (0.4-2.0) 07/29/17 14:25 Calcium 8.7 mg/dL (8.5-10.1) 08/10/17 03:35 Corrected Calcium 9.7 mg/dL (8.5-10.1) 08/10/17 03:35 Magnesium 1.1 mg/dL (1.7-2.9) L 07/30/17 04:50 Total Bilirubin 0.40 mg/dL (0.2-1.0) 08/10/17 03:35 AST 55 Units/L (15-37) H 08/10/17 03:35 ALT 71 Units/L (12-78) 08/10/17 03:35 Alkaline Phosphatase 403 Units/L (46-116) H 08/10/17 03:35 Creatine Kinase 55 Units/L (39-308) 07/30/17 11:05 CK-MB (CK-2) < 1.0 ng/mL (0-4.0) 07/30/17 11:05 CK/CKMB % Calc 1.8 % (<4) 07/30/17 11:05 Troponin I < 0.02 ng/mL (0-1.5) 07/30/17 11:05 B-Natriuretic Peptide 142 pg/mL (0-79) H 07/29/17 14:25 Total Protein 7.1 g/dL (6.4-8.2) 08/10/17 03:35 Albumin 2.8 g/dL (3.4-5.0) L 08/10/17 03:35 Globulin 4.3 g/dL (2.5-4.5) 08/10/17 03:35 Albumin/Globulin Ratio 0.7 Ratio (1.1-2.1) L 08/10/17 03:35 Specimen Type Clean catch urine 07/29/17 14:40 Urine Color Yellow (YELLOW) 07/29/17 14:40 Urine Appearance Clear (CLEAR) 07/29/17 14:40 Urine pH 5.0 (5.0 - 8.0) 07/29/17 14:40 Ur Specific [place] 1.010 (1.000-1.030) 07/29/17 14:40 Urine Protein Negative (NEGATIVE) 07/29/17 14:40 Urine Glucose (UA) Negative (NEGATIVE) 07/29/17 14:40 Urine Ketones Negative (NEGATIVE) 07/29/17 14:40 Urine Occult Blood Negative (NEGATIVE) 07/29/17 14:40 Urine Nitrite Negative (NEGATIVE) 07/29/17 14:40 Urine Bilirubin Negative (NEGATIVE) 07/29/17 14:40 Urine Urobilinogen Normal (NORMAL) 07/29/17 14:40 Ur Leukocyte Esterase Negative (NEGATIVE) 07/29/17 14:40 Urine RBC None seen /HPF (NEGATIVE) 07/29/17 14:40 Urine WBC None seen /HPF (NEGATIVE) 07/29/17 14:40 Ur Squamous Epith Cells Negative /HPF (NEGATIVE) 07/29/17 14:40 Urine Bacteria Negative /HPF (NEGATIVE) 07/29/17 14:40 Ur Culture Indicated? No/not indicated 07/29/17 14:40 Theophylline 7.0 ug/mL (10-20) L 08/10/17 03:35 - Plan (1) Bronchitis Status: Acute Plan: CONTINUE RESP THERAPY, IV ATBX, AM CHEST XRAY. AM LABS, SUPPLEMENTAL O2, IV ATBX THERAPY (2) COPD exacerbation Status: Acute Plan: CARLOS-DUR 300MG PO BID, CONTINUE RESP THERAPY, IV ATBX, AM CHEST XRAY. AM LABS, SUPPLEMENTAL O2 (3) GERD (gastroesophageal reflux disease) Status: Acute (4) Atrial fibrillation Status: Chronic Plan: SEE LAST CATH REPORT, CONTIUE TELEMETRY. CURRENT MEDICATION, ANTI-COAG THERAPY (5) Congestive heart failure Status: Chronic (6) Hypertension Status: Chronic Qualifiers: (7) Renal mass, right Status: Acute Plan: SEE MRI REPORT, CONTINUE TO MONITOR
[2017-08-10] MEDS: TUSSIONEX PENNKINETIC SUSP PO PRN (20:53)
[2017-08-10] MEDS: ZOCOR TAB 20 MG PO SCH (20:54)
[2017-08-10] MEDS: XANAX PO PRN (20:55)
[2017-08-10] MEDS: COREG TAB 12.5 MG PO SCH (20:55)
[2017-08-11] MEDS: DUONEB 0.5 MG/3 MG NEB SCH ×6 (01:42→21:34)
[2017-08-11] MEDS: M.S. CONTIN 15 MG (EXTENDED RELEASE) PO SCH ×3 (05:35→23:31)
--- NOTE | 2017-08-11 07:09 | RAD ---
Examination: Portable AP chest History: SOB Comparison reference 08/10/2017 Findings: Continued upper normal heart size. Improved aeration of the lungs with decreasing congestio n, edema and atelectasis. No new abnormality is noted. Impression: Interval improvement in appearance of the lungs with no new abnormality identified. Reported By:
[2017-08-11] MEDS: PULMICORT NEB TX 0.5 MG NEB SCH ×2 (09:05→21:34)
[2017-08-11] MEDS: ROCEPHIN VIAL 1 GM 1 GM in D5W 50 ML IV 50 ML IV SCH (09:41)
[2017-08-11] MEDS: LEVAQUIN PREMIX IV 750 MG 750 MG/150 ML BAG IV SCH (09:41)
[2017-08-11] MEDS: NEURONTIN CAP 100 MG PO SCH ×2 (09:42→20:52)
[2017-08-11] MEDS: ROBITUSSIN DM PO SCH ×5 (09:42→23:30)
[2017-08-11] MEDS: ASPIRIN EC 81 MG PO SCH (09:42)
[2017-08-11] MEDS: NORVASC TAB 10 MG PO SCH (09:42)
[2017-08-11] MEDS: COLACE CAP 100 MG PO SCH ×2 (09:42→20:52)
[2017-08-11] MEDS: MUCINEX DM PO SCH ×2 (09:42→20:51)
[2017-08-11] MEDS: XARELTO PO SCH (09:42)
[2017-08-11] MEDS: DIOVAN TAB 160 MG PO SCH (09:42)
[2017-08-11] MEDS: K-DUR TAB 20 MEQ PO SCH (09:43)
[2017-08-11] MEDS: PriLOSEC PO SCH (09:43)
[2017-08-11] MEDS: LASIX PO SCH (09:43)
[2017-08-11] MEDS: BUSPAR PO SCH ×2 (09:43→20:52)
[2017-08-11] MEDS ORDERED: PHARMACY CONSULT - DOSE _____ XX SCH (10:00)
[2017-08-11] MEDS: THEO-DUR TAB 200 MG PO SCH ×2 (10:09→20:51)
[2017-08-11] MEDS: DESVENLAFAXINE SUCCINATE PO SCH (10:28)
[2017-08-11 14:27] LABS: ABG BASE EXCESS 5.6 mmol/L (-2.0-2.0)
[2017-08-11 14:29] LABS: ABG HCO3 31.6 mmol/L (22-26)
[2017-08-11 14:30] LABS: ABG ALLEN TEST pos
[2017-08-11] MEDS: XANAX PO PRN (18:04)
[2017-08-11] MEDS: ZOCOR TAB 20 MG PO SCH (20:51)
[2017-08-11] MEDS: COREG TAB 12.5 MG PO SCH (20:52)
[2017-08-11] MEDS: TUSSIONEX PENNKINETIC SUSP PO PRN (21:03)
[2017-08-12] MEDS: DUONEB 0.5 MG/3 MG NEB SCH ×6 (00:58→21:26)
[2017-08-12 04:50] LABS: BASOPHILS # (AUTO) 0.1 X10^3/uL (0.0-0.1); BASOPHILS % (AUTO) 0.8 % (0.2-1.0); EOSINOPHILS # (AUTO) 0.3 x10^3/uL (0.0-0.2); EOSINOPHILS % (AUTO) 3.8 % (0.9-2.9); HEMATOCRIT 34.6 % (42.0-54.0); HEMOGLOBIN 11.8 g/dL (13.5-18.0); LYMPHOCYTES # (AUTO) 1.7 X10^3/uL (1.3-2.9); MEAN CORPUSCULAR HEMOGLOBIN 27.8 pg (27.0-34.0); MEAN CORPUSCULAR VOLUME 81.7 fL (80.0-100.0); MEAN PLATELET VOLUME 9.7 fL (7.4-11.0); MONOCYTES # (AUTO) 0.6 x10^3/uL (0.3-0.8); MONOCYTES % (AUTO) 9.3 % (0.0-13.0); NEUTROPHILS # (AUTO) 4.1 x10^3/uL (2.2-4.8); NEUTROPHILS % (AUTO) 61.1 % (42.0-75.0); PLATELET COUNT 155 X10^3/uL (150.0-450.0); RED BLOOD COUNT 4.23 X10^6/uL (4.7-6.0); RED CELL DISTRIBUTION WIDTH 13.9 % (11.6-16.5); WHITE BLOOD COUNT 6.7 X10^3/uL (3.6-10.0)
[2017-08-12 04:54] LABS: ALANINE AMINOTRANSFERASE 39 Units/L (12-78); ALBUMIN 2.7 g/dL (3.4-5.0); ALKALINE PHOSPHATASE 251 Units/L (46-116); ASPARTATE AMINO TRANSFERASE 19 Units/L (15-37); BLOOD UREA NITROGEN 27 mg/dL (7-18); CALCIUM 8.4 mg/dL (8.5-10.1); CARBON DIOXIDE 26.9 mmol/L (21-32); CHLORIDE 105 mmol/L (98-107); COR CA(FOR HYPOALB) 9.4 mg/dL (8.5-10.1); COR NA(FOR HYPERGLY) 140 mmol/L (136-145); CREATININE 1.31 mg/dL (0.70-1.30); SODIUM 140 mmol/L (136-145); THEOPHYLLINE 10.8 ug/mL (10-20); eGFR BLACK RACES > 60 (>60); eGFR NON BLACK RACES > 60 (>60)
[2017-08-12] MEDS: M.S. CONTIN 15 MG (EXTENDED RELEASE) PO SCH ×3 (05:50→21:00)
[2017-08-12] MEDS ORDERED: NS 50 ML IV 50 ML IV ONE (08:18)
[2017-08-12] MEDS ORDERED: ROCEPHIN VIAL 1 GM ONE (08:20)
[2017-08-12] MEDS: ASPIRIN EC 81 MG PO SCH (08:59)
[2017-08-12] MEDS: NORVASC TAB 10 MG PO SCH (08:59)
[2017-08-12] MEDS: PriLOSEC PO SCH (08:59)
[2017-08-12] MEDS: K-DUR TAB 20 MEQ PO SCH (08:59)
[2017-08-12] MEDS: THEO-DUR TAB 200 MG PO SCH ×2 (08:59→20:37)
[2017-08-12] MEDS: DIOVAN TAB 160 MG PO SCH (08:59)
[2017-08-12] MEDS: MUCINEX DM PO SCH ×2 (08:59→20:37)
[2017-08-12] MEDS: XARELTO PO SCH (08:59)
[2017-08-12] MEDS: NEURONTIN CAP 100 MG PO SCH ×2 (08:59→20:36)
[2017-08-12] MEDS: BUSPAR PO SCH ×2 (09:00→20:37)
[2017-08-12] MEDS: COLACE CAP 100 MG PO SCH ×2 (09:00→20:36)
[2017-08-12] MEDS: LEVAQUIN PREMIX IV 750 MG 750 MG/150 ML BAG IV SCH (09:00)
[2017-08-12] MEDS: LASIX PO SCH (09:00)
[2017-08-12] MEDS: ROBITUSSIN DM PO SCH ×4 (09:00→20:37)
[2017-08-12] MEDS: ROCEPHIN VIAL 1 GM 1 GM in D5W 50 ML IV 50 ML IV SCH (09:01)
[2017-08-12] MEDS: DESVENLAFAXINE SUCCINATE PO SCH (09:05)
[2017-08-12] MEDS: PULMICORT NEB TX 0.5 MG NEB SCH ×2 (09:09→21:26)
[2017-08-12] MEDS: ZOCOR TAB 20 MG PO SCH (20:37)
[2017-08-12] MEDS: COREG TAB 12.5 MG PO SCH (20:37)
[2017-08-12] MEDS: XANAX PO PRN (20:53)
[2017-08-12] MEDS: TUSSIONEX PENNKINETIC SUSP PO PRN (20:53)
[2017-08-13] MEDS: DUONEB 0.5 MG/3 MG NEB SCH ×4 (01:22→13:01)
[2017-08-13] MEDS: M.S. CONTIN 15 MG (EXTENDED RELEASE) PO SCH (05:14)
[2017-08-13 06:15] LABS: BASOPHILS # (AUTO) 0.1 X10^3/uL (0.0-0.1); BASOPHILS % (AUTO) 1.2 % (0.2-1.0); EOSINOPHILS # (AUTO) 0.2 x10^3/uL (0.0-0.2); EOSINOPHILS % (AUTO) 4.2 % (0.9-2.9); HEMATOCRIT 34.3 % (42.0-54.0); LYMPHOCYTES # (AUTO) 1.6 X10^3/uL (1.3-2.9); LYMPHOCYTES % (AUTO) 29.2 % (21.0-51.0); MEAN CORPUSCULAR VOLUME 80.1 fL (80.0-100.0); MEAN PLATELET VOLUME 9.6 fL (7.4-11.0); MONOCYTES # (AUTO) 0.5 x10^3/uL (0.3-0.8); MONOCYTES % (AUTO) 9.4 % (0.0-13.0); NEUTROPHILS # (AUTO) 3.1 x10^3/uL (2.2-4.8); PLATELET COUNT 154 X10^3/uL (150.0-450.0); RED BLOOD COUNT 4.28 X10^6/uL (4.7-6.0); RED CELL DISTRIBUTION WIDTH 13.6 % (11.6-16.5); WHITE BLOOD COUNT 5.5 X10^3/uL (3.6-10.0)
[2017-08-13 06:35] LABS: ALANINE AMINOTRANSFERASE 30 Units/L (12-78); ALBUMIN 2.6 g/dL (3.4-5.0); ALKALINE PHOSPHATASE 210 Units/L (46-116); ASPARTATE AMINO TRANSFERASE 13 Units/L (15-37); BLOOD UREA NITROGEN 23 mg/dL (7-18); CALCIUM 8.3 mg/dL (8.5-10.1); CHLORIDE 105 mmol/L (98-107); COR CA(FOR HYPOALB) 9.4 mg/dL (8.5-10.1); COR NA(FOR HYPERGLY) 141 mmol/L (136-145); CREATININE 1.25 mg/dL (0.70-1.30); SODIUM 140 mmol/L (136-145); eGFR BLACK RACES > 60 (>60); eGFR NON BLACK RACES > 60 (>60)
[2017-08-13] MEDS: ROCEPHIN VIAL 1 GM 1 GM in D5W 50 ML IV 50 ML IV SCH (08:49)
[2017-08-13] MEDS: DESVENLAFAXINE SUCCINATE PO SCH (08:49)
[2017-08-13] MEDS: LEVAQUIN PREMIX IV 750 MG 750 MG/150 ML BAG IV SCH (08:50)
[2017-08-13] MEDS: ROBITUSSIN DM PO SCH (08:50)
[2017-08-13] MEDS: XARELTO PO SCH (08:50)
[2017-08-13] MEDS: PriLOSEC PO SCH (08:50)
[2017-08-13] MEDS: K-DUR TAB 20 MEQ PO SCH (08:50)
[2017-08-13] MEDS: BUSPAR PO SCH (08:51)
[2017-08-13] MEDS: COLACE CAP 100 MG PO SCH (08:51)
[2017-08-13] MEDS: LASIX PO SCH (08:51)
[2017-08-13] MEDS: DIOVAN TAB 160 MG PO SCH (08:51)
[2017-08-13] MEDS: NORVASC TAB 10 MG PO SCH (08:51)
[2017-08-13] MEDS: NEURONTIN CAP 100 MG PO SCH (08:51)
[2017-08-13] MEDS: MUCINEX DM PO SCH (08:51)
[2017-08-13] MEDS: THEO-DUR TAB 200 MG PO SCH (08:52)
[2017-08-13] MEDS: ASPIRIN EC 81 MG PO SCH (08:52)
[2017-08-13] MEDS: PULMICORT NEB TX 0.5 MG NEB SCH (09:25)
[2017-08-13 12:52] VITALS: BP 132/60
== END 2017-08-13 14:35 | disposition home health service (06) | DRG 190 ==
LOC: ER 14:00 → MED/SURG 17:49 → ER 17:53
PROVIDERS: ADMIT Internal Medicine; ATTEND Internal Medicine
PROC: 3E0234Z Introduction of Serum, Toxoid and Vaccine into Muscle, Percutaneous Approach (ICD-10-PCS; principal; 2017-07-30)
DX: J44.1 Chronic obstructive pulmonary disease with (acute) exacerbation (principal); J18.0 Bronchopneumonia, unspecified organism; I50.9 Heart failure, unspecified; R07.89 Other chest pain; R06.02 Shortness of breath; K21.9 Gastro-esophageal reflux disease without esophagitis; I48.91 Unspecified atrial fibrillation; I10 Essential (primary) hypertension; N28.89 Other specified disorders of kidney and ureter; F32.89 Other specified depressive episodes; J96.22 Acute and chronic respiratory failure with hypercapnia; R00.0 Tachycardia, unspecified; R26.89 Other abnormalities of gait and mobility; Z23 Encounter for immunization
CPT/HCPCS: 36415; 36600; 71010; 71020; 71250; 71260; 74182; 80053; 80198; 81001; 82550; 82553; 82803; 83605; 83615; 83735; 83880; 84484; 85025; 85378; 85610; 85730; 87040; 87070; 87205; 90686; 93005; 93010; 94640; 94660; 94669; 94760; 96365; 96374; 99284; A4222; A4618; A7030; J0696; J1940; J1956; J2405; J7608; J7620; J7626